=== PATIENT | male | born 1955 | race Caucasian/White ===

== ENCOUNTER → 2018-01-25 | Outpatient (CLI) | payer MEDICARE | END | disposition home or self-care (01) | LOC: CT 09:29 | DX: J98.11 Atelectasis (principal); J43.2 Centrilobular emphysema; I77.810 Thoracic aortic ectasia; I11.0 Hypertensive heart disease with heart failure; E78.00 Pure hypercholesterolemia, unspecified; K21.9 Gastro-esophageal reflux disease without esophagitis | CPT/HCPCS: 71250 ==

== ENCOUNTER 2018-03-18 10:47 | Day surgery (SDC) | payer MEDICARE ==
[~2018-03-18 10:47] MED LIST: ALLO300T PO; AMLO5TAB2 PO; ASPI325T8 PO; ATOR40TA PO; BENZOCAINE ONE 20% MUCOSAL SPRAY. MM; CARV12.52 PO; CARV40CP PO; DIGO125T PO; FURO20TA3 PO; GABA-586 PO; HYDROmorphone 2 MG/ML VIAL IV PRN; IV RINGERS,LACTATED 1000ML 1,000 ML IV SCH; LIDOCAINE 1% PF 2 ML VIAL. ID PRN; LIDOCAINE 2% TOPICAL JELLY 5GM TUBE. TP ONE; LIDOCAINE 2% VISCOUS 15 ML SOLUTION. SWSW ONE; LISI-130 PO; METO50TA6 PO; MORPHINE SULFATE 2 MG/ML VIAL. IV PRN; NITR0.4T22 SL; OMEP40CA2 PO; ONDANSETRON PF 4 MG/2 ML VIAL. IV PRN; OXYC1TAB7 PO; PROCHLORPERAZINE 10 MG/2 ML VIAL. IV PRN; TIOT18CA IH; WARF-31 PO; WARF10TA45 PO; fentaNYL PF VIAL 100 MCG/2 ML VIAL IV PRN
--- NOTE | 2018-03-18 11:06 | EKG ---
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
[2018-03-18 11:29] VITALS: BP 166/100
[2018-03-18] MEDS ORDERED: PROPOFOL 0 ML IV ONE ×2 (12:01)
[2018-03-18 13:05] LABS: PROTHROMBIN TIME PATIENT 13.8 SEC (11.7-14.0)
== END 2018-03-18 14:16 | disposition home or self-care (01) ==
LOC: SURG 10:47
PROVIDERS: ATTEND Internal Medicine Cardiovascular Disease
DX: I48.2 Chronic atrial fibrillation (principal); Z53.8 Procedure and treatment not carried out for other reasons; I10 Essential (primary) hypertension; E78.5 Hyperlipidemia, unspecified; I25.10 Atherosclerotic heart disease of native coronary artery without angina pectoris; D64.9 Anemia, unspecified; J44.9 Chronic obstructive pulmonary disease, unspecified; Z79.899 Other long term (current) drug therapy; Z79.82 Long term (current) use of aspirin; Z79.01 Long term (current) use of anticoagulants; Z87.891 Personal history of nicotine dependence; Z72.89 Other problems related to lifestyle
CPT/HCPCS: 36415; 85610; 92960; 93005; J2704

== ENCOUNTER 2018-05-03 11:23 | Inpatient (IN) | payer MEDICARE ==
[~2018-05-03] VITALS: Ht 180.3 cm; Wt 118.1 kg
[~2018-05-03 11:23] MED LIST changes: -AMLO5TAB2 PO; +AMLO5TAB7 PO; -BENZOCAINE ONE 20% MUCOSAL SPRAY. MM; -HYDROmorphone 2 MG/ML VIAL IV PRN; -IV RINGERS,LACTATED 1000ML 1,000 ML IV SCH; -LIDOCAINE 1% PF 2 ML VIAL. ID PRN; -LIDOCAINE 2% TOPICAL JELLY 5GM TUBE. TP ONE; -LIDOCAINE 2% VISCOUS 15 ML SOLUTION. SWSW ONE; -MORPHINE SULFATE 2 MG/ML VIAL. IV PRN; -ONDANSETRON PF 4 MG/2 ML VIAL. IV PRN; -PROCHLORPERAZINE 10 MG/2 ML VIAL. IV PRN; -fentaNYL PF VIAL 100 MCG/2 ML VIAL IV PRN
[2018-05-03] MEDS ORDERED: IV NORMAL SALINE 500ML BAG 500 ML IV ONE (12:30)
[2018-05-03 12:35] LABS: BASO % 1 % (0-3); EOS % 0 % (0-3); HEMATOCRIT 40.3 % (39.0-53.0); HEMOGLOBIN 13.4 g/dL (13.0-17.5); LYMPH # 0.6 x10^3/uL (1.0-4.8); LYMPH % 9 % (24-48); MEAN CORPUSCULAR HEMOGLOBIN 36 pg (25-35); MEAN CORPUSCULAR HGB CONC 33 g/dL (31-37); MEAN CORPUSCULAR VOLUME 108 fL (79-100); MONO # 0.6 x10^3/uL (0.0-1.1); MONO % 9 % (0-9); NEUT # 5.1 x10^3uL (1.8-7.7); NEUT % 81 % (31-73); PLATELET COUNT 196 x10^3/uL (140-400); RED BLOOD COUNT 3.75 x10^6/uL (4.30-5.70); RED CELL DISTRIBUTION WIDTH 16.4 % (11.5-14.5); WHITE BLOOD COUNT 6.3 x10^3/uL (4.0-11.0)
--- NOTE | 2018-05-03 12:38 | PHYS DOC ---
Past Medical History Past Medical History: A-Fib, CAD, COPD, High Cholesterol, Heart Disease, Hypertension Additional Past Medical Histor: COLON POLYPS, NEUROPATHY Past Surgical History: Appendectomy, Other Additional Past Surgical Histo: COLON RESECTION, 4 CARDIAC STENTS Alcohol Use: Occasionally Drug Use: None Adult General Chief Complaint Chief Complaint: SYNCOPE HPI HPI 62-year-old male presents to ER with complaints of multiple syncope episodes over the past week. Patient reports he has had episodes where he becomes dizzy and lightheaded and passes out. Patient reports he struck his posterior head on Sunday and is on Coumadin for history of A. fib. Patient reports he's had bilateral knee pain since his falls with abrasions. Patient also has complaints of right foot pain and swelling. Patient states he has had decreased urination over the past couple of days. He reports he had a bowel movement this morning prior to that he hadn't had one in 5 days. Patient reports since falls he has had increased left hip pain. Patient denies any chest pain, palpitations, or shortness of air. Patient is O2 dependent for diagnosed COPD. Pt denies fever/ chills or cough. Review of Systems Review of Systems Constitutional: Denies fever or chills [] Eyes: Denies change in visual acuity, redness, or eye pain [] HENT: Denies nasal congestion or sore throat [] Respiratory: Denies cough or shortness of breath [] Cardiovascular: No additional information not addressed in HPI [] GI: Denies abdominal pain, nausea, vomiting, bloody stools or diarrhea [] : Denies dysuria or hematuria [] Musculoskeletal: Denies back pain. Reports pain in sides of neck- denies midline neck pain. Reports bilat. knee and rt foot pain. Integument: Reports abrasions bilat. knees and swelling rt foot. Reports laceration posterior head from fall on Sun. Neurologic: Denies headache, focal weakness or sensory changes. Reports multiple syncope episodes Endocrine: Denies polyuria or polydipsia [] All other systems were reviewed and found to be within normal limits, except as documented in this note. Current Medications Current Medications Current Medications Medications (Trade) Dose Ordered Sig/Meredith Start Time Stop Time Status Last Admin Dose Admin Sodium Chloride 500 ml @ 500 mls/hr 1X ONCE 05/03/18 12:30 05/03/18 13:29 DC Allergies Allergies Allergies Coded Allergies Type Severity Reaction Last Updated Verified No Known Drug Allergies 03/13/16 No Physical Exam Physical Exam Constitutional: Well developed, well nourished, no acute distress, non-toxic appearance. [] HENT: Normocephalic, approx. 4cm laceration to posterior head with scab- no erythema/ecchymosis/bleeding swelling at site, bilateral ears normal, mucous membranes pink/moist, no oral exudates, nose normal. [] Eyes: 3mm PERRLA, EOMI- no pain with eye movement, no nystagmus, conjunctiva normal, no discharge. [] Neck: Normal range of motion, tender on palp. lateral sides of neck- no midline tenderness on palp. or palp. deformity, supple, no stridor. [] Cardiovascular:Heart rate irreg. rhythm, no murmur [] Lungs & Thorax: Bilateral breath sounds clear to auscultation- diminished in bases. Resp. equal/nonlabored. On o2 via NC at 3L which he is O2 dependent Abdomen: Bowel sounds normal, soft/obese, no tenderness, no masses, no pulsatile masses. [] Skin: Warm, dry, no erythema, no rash. [] Back: No tenderness- no midline spinal tenderness or visible injury- no palp. deformity, no CVA tenderness. [] Extremities: no cyanosis, no clubbing. Bilat. anterior knee abrasions- mild erythema surrounding wounds without swelling/deformity. Mild tenderness on palp. of bilat. knees- pt able to perform ROM with slight decrease in lt knee with c/o increased pain. Rt dorsal surface of foot orthopedist to palp. base of 5th metatarsal into top of foot- no ecchymosis/wounds. Rt ankle exam NL with ROM intact Neurologic: Alert and oriented X 3, normal motor function, normal sensory function, no focal deficits noted. [] Psychologic: Affect normal, judgement normal, mood normal. [] Current Patient Data Vital Signs Vital Signs Date Time Temp Pulse Resp B/P (MAP) Pulse Ox O2 Delivery O2 Flow Rate FiO2 05/03/18 13:45 100 20 135/94 (108) 99 Nasal Cannula 2.0 05/03/18 11:44 98.7 98.7 Lab Values Laboratory Tests Test 05/03/18 12:10 05/03/18 13:46 White Blood Count 6.3 x10^3/uL (4.0-11.0) Red Blood Count 3.75 x10^6/uL (4.30-5.70) L Hemoglobin 13.4 g/dL (13.0-17.5) Hematocrit 40.3 % (39.0-53.0) Mean Corpuscular Volume 108 fL (79-100) H Mean Corpuscular Hemoglobin 36 pg (25-35) H Mean Corpuscular Hemoglobin Concent 33 g/dL (31-37) Red Cell Distribution Width 16.4 % (11.5-14.5) H Platelet Count 196 x10^3/uL (140-400) Neutrophils (%) (Auto) 81 % (31-73) H Lymphocytes (%) (Auto) 9 % (24-48) L Monocytes (%) (Auto) 9 % (0-9) Eosinophils (%) (Auto) 0 % (0-3) Basophils (%) (Auto) 1 % (0-3) Neutrophils # (Auto) 5.1 x10^3uL (1.8-7.7) Lymphocytes # (Auto) 0.6 x10^3/uL (1.0-4.8) L Monocytes # (Auto) 0.6 x10^3/uL (0.0-1.1) Eosinophils # (Auto) 0.0 x10^3/uL (0.0-0.7) Basophils # (Auto) 0.0 x10^3/uL (0.0-0.2) Prothrombin Time 16.5 SEC (11.7-14.0) H Prothrombin Time INR 1.4 (0.8-1.1) H PTT 29 SEC (24-38) Sodium Level 136 mmol/L (136-145) Potassium Level 4.0 mmol/L (3.5-5.1) Chloride Level 94 mmol/L (98-107) L Carbon Dioxide Level 30 mmol/L (21-32) Anion Gap 12 (6-14) Blood Urea Nitrogen 10 mg/dL (8-26) Creatinine 1.2 mg/dL (0.7-1.3) Estimated GFR (Cockcroft-Gault) 61.6 BUN/Creatinine Ratio 8 (6-20) Glucose Level 122 mg/dL (70-99) H Calcium Level 9.1 mg/dL (8.5-10.1) Magnesium Level 1.5 mg/dL (1.8-2.4) L Total Bilirubin 0.9 mg/dL (0.2-1.0) Aspartate Amino Transferase (AST) 46 U/L (15-37) H Alanine Aminotransferase (ALT) 44 U/L (16-63) Alkaline Phosphatase 121 U/L (46-116) H Troponin I Quantitative < 0.017 ng/mL (0.000-0.055) NQ-Yay-J-Type Natriuretic Peptide 436 pg/mL (0-124) H Total Protein 6.2 g/dL (6.4-8.2) L Albumin 3.1 g/dL (3.4-5.0) L Albumin/Globulin Ratio 1.0 (1.0-1.7) Digoxin Level 0.4 ng/mL (0.9-2.0) L Digoxin Last Dose Date Unknown Digoxin Last Dose Time Unknown Urine Collection Type Unknown Urine Color Rohini Urine Clarity Clear Urine pH 5.5 Urine Specific [place] 1.020 Urine Protein Negative mg/dL (NEG-TRACE) Urine Glucose (UA) Negative mg/dL (NEG) Urine Ketones (Stick) Trace mg/dL (NEG) Urine Blood Negative (NEG) Urine Nitrite Negative (NEG) Urine Bilirubin Small (NEG) Urine Urobilinogen Dipstick 1.0 mg/dL (0.2 mg/dL) Urine Leukocyte Esterase Negative (NEG) Urine RBC 0 /HPF (0-2) Urine WBC 1-4 /HPF (0-4) Urine Transitional Epithelial Cells Few /LPF Urine Bacteria 0 /HPF (0-FEW) Urine Hyaline Casts Many /HPF Urine Mucus Marked /LPF Laboratory Tests 05/03/18 12:10 Laboratory Tests 05/03/18 12:10 EKG EKG [] Radiology/Procedures Radiology/Procedures PROCEDURE: CT HEAD AND CERVICAL SPINE WO CT HEAD AND CERVICAL SPINE WO Indication: HEAD INJURY ON SUNDAY, SYNCOPE, PRIOR SENT Exposure: One or more of the following individualized dose reduction techniques were utilized for this examination: 1. Automated exposure control 2. Adjustment of the mA and/or kV according to patient size 3. Use of iterative reconstruction technique. Comparison: Images from CT head of 06/25/2016 without report Contrast: None HEAD: Posterior fossa is unremarkable. No evidence of acute intracranial hemorrhage or abnormal extra-axial fluid collection. No evidence of mass effect or midline shift. Low-density in the white matter bilaterally, a nonspecific finding, but which is commonly due to chronic small vessel ischemic disease in a patient of this age. Prominence of ventricles and sulci, compatible with involutional change or atrophy. Intracranial arterial calcifications are identified. Visualized orbits are unremarkable. Visualized paranasal sinuses and mastoids are clear. No acute calvarial abnormality. Mild scalp density in the high right parietal region, compatible with a small hematoma. Impression: 1. Small right high parietal scalp hematoma. 2. Negative for acute intracranial hemorrhage or mass effect. 3. Chronic findings, discussed above. CERVICAL SPINE: C1 ring: Intact Cervico-occipital junction: Intact C1-C2 relationship: Within normal limits Fracture: No acute fracture identified. Spondylosis: Mild degenerative spondylosis. Bilateral multilevel neural foraminal narrowing. Alignment: Reversal of the normal cervical lordosis, can be due to muscle spasm or positioning. Facets: No evidence of perched or locked facet. Prevertebral soft tissues: No significant swelling or hematoma Thyroid: Mildly asymmetric, smaller on the left. Lung apices: Clear Impression: Mild degenerative spondylosis. No evidence of acute fracture or subluxation. Electronically signed by: Tobi Zavala MD (05/03/2018 1:36 PM) [id number] PROCEDURE: FOOT RIGHT 3V Examination: 3 views of the bilateral knees, 3 views of the right foot and frontal view of the chest HISTORY: History of multiple falls: Bilateral knee pain, foot pain, syncope COMPARISON: None available FINDINGS: Right foot: Comminuted fracture of the distal shaft head and neck of the fifth metatarsal. Moderate soft tissue swelling identified dorsal and lateral to the fifth metatarsal. The alignment of the carpal bones grossly appears unremarkable Bilateral knees: Mild joint space loss identified in the medial, lateral compartment of the knees. There is no acute fracture or dislocation of the knees. Minimally joint effusion left knee joint. CHEST: Low lung volumes and technique accentuates heart size and pulmonary vascularity. Small right-sided pleural effusion identified with the right lung base airspace opacities likely atelectasis or infiltrates. IMPRESSION: 1. Comminuted fracture the distal shaft and head and neck of the right fifth metatarsal. 2. Mild bilateral knee tricompartmental degenerative changes. 3. Small right pleural effusion with right lung base airspace opacities likely atelectasis or infiltrates. Electronically signed by: Rashel Rubin MD (05/03/2018 1:47 PM) [place] [id number] DICTATED and SIGNED BY: RASHEL RUBIN MD DATE: 05/03/18 1342 Course & Med Decision Making Course & Med Decision Making Pertinent Labs and Imaging studies reviewed. (See chart for details) Pt had no episodes of syncope or complaints of dizziness or lightheadedness while in the ER. Test results were discussed with patient along with plans for admission for further care and monitoring. Patient's head CT was negative for acute findings. Patient had fracture reported on right foot x-ray so short leg posterior splint was applied while in the ER. Patient remained neuro and vascular intact prior to and following splint application. 1452: Spoke with Dr. Hu was on-call for Dr. Duffy pt's PCP and discussed patient's case and plan of care. Will consult Dr. 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 James Disclaimer Dragon Disclaimer This electronic medical record was generated, in whole or in part, using a voice recognition dictation system. Departure Departure Impression: Primary Impression: Syncope Additional Impressions: Falls Foot fracture, right Disposition: 09 ADMITTED INPATIENT Admitting Physician: Stevie Hu Condition: STABLE Referrals: CAMDEN DUFFY MD (PCP) Problem Qualifiers JUSTIN BOO APRN May 03, 2018 12:38
[2018-05-03 12:44] LABS: PROTHROMBIN TIME PATIENT 16.5 SEC (11.7-14.0)
[2018-05-03 12:54] LABS: ANION GAP 12 (6-14); BLOOD UREA NITROGEN 10 mg/dL (8-26); BUN/CREATININE RATIO 8 (6-20); CALCIUM 9.1 mg/dL (8.5-10.1); CARBON DIOXIDE 30 mmol/L (21-32); CHLORIDE 94 mmol/L (98-107); CREATININE 1.2 mg/dL (0.7-1.3); GFR 61.6; GLUCOSE 122 mg/dL (70-99); SODIUM 136 mmol/L (136-145)
--- NOTE | 2018-05-03 12:55 | EKG ---
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
[2018-05-03 13:06] LABS: ALBUMIN 3.1 g/dL (3.4-5.0); ALK PHOS 121 U/L (46-116); ALT (SGPT) 44 U/L (16-63); AST (SGOT) 46 U/L (15-37); DIG 0.4 ng/mL (0.9-2.0); MAGNESIUM 1.5 mg/dL (1.8-2.4); TOTAL BILIRUBIN 0.9 mg/dL (0.2-1.0); TOTAL PROTEIN 6.2 g/dL (6.4-8.2)
--- NOTE | 2018-05-03 13:39 | RAD ---
CT HEAD AND CERVICAL SPINE WO Indication: HEAD INJURY ON SUNDAY, SYNCOPE, PRIOR SENT Exposure: One or more of the following individualized dose reduction techniques were utilized for this examination: 1. Automated exposure control 2. Adjustment of the mA and/or kV according to patient size 3. Use of iterative reconstruction technique. Comparison: Images from CT head of 06/25/2016 without report Contrast: None HEAD: Posterior fossa is unremarkable. No evidence of acute intracranial hemorrhage or abnormal extra-axial fluid collection. No evidence of mass effect or midline shift. Low-density in the white matter bilaterally, a nonspecific finding, but which is commonly due to chronic small vessel ischemic disease in a patient of this age. Prominence of ventricles and sulci, compatible with involutional change or atrophy. Intracranial arterial calcifications are identified. Visualized orbits are unremarkable. Visualized paranasal sinuses and mastoids are clear. No acute calvarial abnormality. Mild scalp density in the high right parietal region, compatible with a small hematoma. Impression: 1. Small right high parietal scalp hematoma. 2. Negative for acute intracranial hemorrhage or mass effect. 3. Chronic findings, discussed above. CERVICAL SPINE: C1 ring: Intact Cervico-occipital junction: Intact C1-C2 relationship: Within normal limits Fracture: No acute fracture identified. Spondylosis: Mild degenerative spondylosis. Bilateral multilevel neural foraminal narrowing. Alignment: Reversal of the normal cervical lordosis, can be due to muscle spasm or positioning. Facets: No evidence of perched or locked facet. Prevertebral soft tissues: No significant swelling or hematoma Thyroid: Mildly asymmetric, smaller on the left. Lung apices: Clear Impression: Mild degenerative spondylosis. No evidence of acute fracture or subluxation. Electronically signed by: Tobi Zavala MD (05/03/2018 1:36 PM) [id number]
--- NOTE | 2018-05-03 13:50 | RAD ---
Examination: 3 views of the bilateral knees, 3 views of the right foot and frontal view of the chest HISTORY: History of multiple falls: Bilateral knee pain, foot pain, syncope COMPARISON: None available FINDINGS: Right foot: Comminuted fracture of the distal shaft head and neck of the fifth metatarsal. Moderate soft tissue swelling identified dorsal and lateral to the fifth metatarsal. The alignment of the carpal bones grossly appears unremarkable Bilateral knees: Mild joint space loss identified in the medial, lateral compartment of the knees. There is no acute fracture or dislocation of the knees. Minimally joint effusion left knee joint. CHEST: Low lung volumes and technique accentuates heart size and pulmonary vascularity. Small right-sided pleural effusion identified with the right lung base airspace opacities likely atelectasis or infiltrates. IMPRESSION: 1. Comminuted fracture the distal shaft and head and neck of the right fifth metatarsal. 2. Mild bilateral knee tricompartmental degenerative changes. 3. Small right pleural effusion with right lung base airspace opacities likely atelectasis or infiltrates. Electronically signed by: Rashel Rubin MD (05/03/2018 1:47 PM) [place] [id number]
[2018-05-03 13:56] LABS: BILIRUBIN,URINE SMALL (NEG); CLARITY,URINE CLEAR; COLOR,URINE AMBER; NITRITE,URINE NEGATIVE (NEG); PH,URINE 5.5; PROTEIN,URINE NEGATIVE (NEG-TRACE)
[2018-05-03 14:07] LABS: BACTERIA,URINE 0 /HPF (0-FEW); HYALINE CASTS, URINE MANY /HPF; RBC,URINE 0 /HPF (0-2)
[2018-05-03 16:24] VITALS: BP 118/70
[2018-05-03] MEDS ORDERED: AMIT25TA PO (16:32)
[2018-05-03] MEDS: HYDROcodone/APAP 5/325MG 1 TAB TABLET PO PRN ×2 (17:28→20:35)
[2018-05-03] MEDS: WARFARIN 5 MG TABLET. PO SCH (18:18)
[2018-05-03 19:00] VITALS: BP 155/84
[2018-05-03] MEDS: IPRATRPIUM/ALBUTEROL 0.5/2.5MG 3 ML NEBU. NEB SCH (19:52)
[2018-05-03] MEDS: GABAPENTIN 300 MG CAPSULE. PO SCH (20:12)
[2018-05-03] MEDS: AMITRIPTYLINE HCL 25 MG TABLET. PO SCH (20:12)
[2018-05-03] MEDS: METOPROLOL TART IMMED RELEASE 50 MG TABLET. PO SCH (20:12)
[2018-05-03 23:00] VITALS: BP 115/65
[2018-05-04] VITALS (8 sets, daily range): BP systolic 92–137; BP diastolic 56–81
[2018-05-04] MEDS: HYDROcodone/APAP 5/325MG 1 TAB TABLET PO PRN ×3 (01:18→20:44)
[2018-05-04 05:23] LABS: BASO % 1 % (0-3); EOS % 1 % (0-3); HEMATOCRIT 35.8 % (39.0-53.0); LYMPH % 22 % (24-48); MEAN CORPUSCULAR HEMOGLOBIN 36 pg (25-35); MEAN CORPUSCULAR HGB CONC 34 g/dL (31-37); MEAN CORPUSCULAR VOLUME 108 fL (79-100); MONO # 0.5 x10^3/uL (0.0-1.1); MONO % 11 % (0-9); NEUT % 66 % (31-73); PLATELET COUNT 151 x10^3/uL (140-400); RED BLOOD COUNT 3.32 x10^6/uL (4.30-5.70); RED CELL DISTRIBUTION WIDTH 16.7 % (11.5-14.5); WHITE BLOOD COUNT 4.5 x10^3/uL (4.0-11.0)
[2018-05-04 05:38] LABS: CALCIUM 8.4 mg/dL (8.5-10.1); POTASSIUM 3.4 mmol/L (3.5-5.1)
[2018-05-04] MEDS: IPRATRPIUM/ALBUTEROL 0.5/2.5MG 3 ML NEBU. NEB SCH ×4 (08:29→20:18)
[2018-05-04] MEDS: ASPIRIN 325 MG TABLET PO SCH (08:42)
[2018-05-04] MEDS: METOPROLOL TART IMMED RELEASE 50 MG TABLET. PO SCH ×2 (08:43→20:45)
[2018-05-04] MEDS: GABAPENTIN 300 MG CAPSULE. PO SCH ×3 (08:44→20:45)
[2018-05-04] MEDS ORDERED: DIGOXIN 125 MCG TABLET. PO SCH (09:00)
[2018-05-04] MEDS ORDERED: NON FORMULARY ITEM (Tiotropium Bromide (Spiriva) 2 INH) IH SCH (09:00)
--- NOTE | 2018-05-04 09:22 | PDOC ---
Provider Note Provider Note [id number] MAR ANTONY MD May 04, 2018 09:22
--- NOTE | 2018-05-04 09:24 | PDOC ---
Provider Note Provider Note note high mcv without anemia, check B12 , suspect etoh , neuropathy could cause autonomic instability and syncope MAR ANTONY MD May 04, 2018 09:24
[2018-05-04] MEDS: MAGNESIUM OXIDE 400 MG TABLET PO SCH ×2 (11:22→17:47)
--- NOTE | 2018-05-04 11:43 | HP ---
ADMIT DATE: 05/04/2018 CHIEF COMPLAINT: Multiple episodes of syncope and a broken foot. HISTORY OF PRESENT ILLNESS: A 62-year-old white male, patient of Dr. Duffy, who has a history of COPD, coronary artery disease and atrial fibrillation, came in after recurrent episodes of syncope in the last 3 weeks, totaling about 6 times by his recognition. He does not recall chest pain, palpitations, diaphoresis, dizziness or any other specific symptoms when it happens and has had no ictal or postictal behavior at these episodes. When he fell yesterday, he injured his foot and has a fractured fifth metatarsal and was admitted on monitor with a splint in place for orthopedic evaluation. CT scan of the head was unremarkable. Laboratory studies unremarkable, except for mildly low magnesium. He does not take any specific medications for blood pressure and has taken all of his home meds according to him. PAST MEDICAL HISTORY: History of coronary artery disease. He has a cardiac catheterization several months ago, which revealed stents in place and bypasses and nothing unusual. ALLERGIES: No allergies are known. MEDICATIONS: No new medications. He has a history of "neuropathy" for which he takes gabapentin, but the etiology of this is unknown. He is not a diabetic and states he is not much of a drinker. FAMILY HISTORY: Unremarkable. SOCIAL HISTORY: He quit smoking 20 years ago after his first heart attack and states he does not drink much alcohol. He is . REVIEW OF SYSTEMS: No other complaints. PHYSICAL EXAMINATION: ENT: All within normal limits. NECK: No masses, nodes or bruits. LUNGS: Clear. CARDIOVASCULAR: Irregular rate, consistent with atrial fibrillation, rate is about 80-110. ABDOMEN: Obese, soft. No obvious hepatosplenomegaly, masses or ascites. EXTREMITIES: Decreased pedal pulses. SKIN: Warm. The right leg is in a soft cast. No edema. No joint or skin lesions. Nail beds are pink. NEUROLOGIC: Physiologic and nonfocal. He has good movement of all extremities. Good orientation. Cranial nerves and DTRs intact. He does have some decreased sensation in the lower feet and ankles bilaterally. ASSESSMENT: 1. Recurrent episodes of syncope with secondary injuries. Etiology of this is unclear. Certainly at risk for tachyarrhythmia or bradyarrhythmia or even syncope from hypotension. 2. History of peripheral neuropathy, suspect must be alcohol based from past history. 3. Fracture of the right fifth distal metatarsal. 4. Chronic obstructive pulmonary disease, on oxygen. 5. Hypomagnesemia. PLAN: Replace magnesium. Check TSH, cortisol and follow blood pressures and heart monitor. We will reduce metoprolol and discontinue digoxin for now, given the risk of bradyarrhythmias at this point. Warfarin is a little low, so we will increase the dose briefly and cardiac consultation has been obtained as well. MAR ANTONY MD DR: SAQIB/nts JOB#: [id number] / [id number]
--- NOTE | 2018-05-04 14:53 | PDOC2 ---
CONSULT Date of Consult Date of Consult DATE: 05/04/18 TIME: 14:44 Reason for Consult Reason for Consult: Syncope Referring Physician Referring Physician: Dr. Hu Identification/Chief Complaint Chief Complaint Syncope Source Source: Patient History of Present Illness Reason for Visit: The patient is a 62-year-old male who reports multiple episodes of syncope over the past 3-4 weeks. They have been increasing in frequency. His most recent one resulted in a fall and he has a right foot fracture which has been treated. He has a history of chronic atrial fibrillation which is treated with rate control medications and anticoagulation. He also has a history of coronary artery disease and has at least 4 stents with his last cath greater than 4 years ago. These episodes of syncope are not associated with chest pain or shortness of breath. He has little if any warning prior to them. He denies any change in medications, activities or travel prior to the initiation of these episodes. His monitor has remained in atrial fibrillation rate in the 80s overnight. Cardiac enzymes are normal. Magnesium is mildly decreased at 1.5 and is being replaced. He is comfortable in bed at this time. Past Medical History Cardiovascular: AFIB, CAD, HTN, Hyperlipidemia Pulmonary: COPD GI: GERD Heme/Onc: Anemia NOS Hepatobiliary: Hep A/B/C Psych: Depression Musculoskeletal: Osteoarthritis Infectious disease: No pertinent hx Renal/: No pertinent hx Endocrine: No pertinent hx Past Surgical History Past Surgical History: Appendectomy, Colon Resection, Other (coronary stents) Family History Family History: Coronary Artery Disease, Hypertension Social History ALCOHOL: occassional Lives: with Family Current Problem List Problem List Problems Medical Problems: (1) Falls Status: Acute (2) Foot fracture, right Status: Acute (3) Syncope Status: Acute Current Medications Current Medications Current Medications Sodium Chloride 500 ml @ 500 mls/hr 1X ONCE IV ; Start 05/03/18 at 12:30; Stop 05/03/18 at 13:29; Status DC Amitriptyline HCl (Elavil) 25 mg QHS PO Last administered on 05/03/18at 20:12; Start 05/03/18 at 21:00 Aspirin (Kelton Aspirin) 325 mg DAILY PO Last administered on 05/04/18at 08:42; Start 05/04/18 at 09:00 Digoxin (Lanoxin) 125 mcg DAILY PO Last administered on 05/04/18at 08:44; Start 05/04/18 at 09:00; Stop 05/04/18 at 09:28; Status DC Metoprolol Tartrate (Lopressor) 50 mg BID PO Last administered on 05/04/18at 08 :43; Start 05/03/18 at 21:00 Gabapentin (Neurontin) 300 mg TID PO Last administered on 05/04/18at 13:24; Start 05/03/18 at 21:00 Non-Formulary Medication (Tiotropium [place] (Spiriva)) 2 inh DAILY IH ; Start 05/04/18 at 09:00; Status UNV Warfarin Sodium (Coumadin) 5 mg DAILY16 PO Last administered on 05/03/18at 18: 18; Start 05/03/18 at 18:00 Acetaminophen/ Hydrocodone Bitart (Lortab 5/325) 1 tab PRN Q3HRS PRN PO PAIN Last administered on 05/04/18at 08:45; Start 05/03/18 at 17:15 Albuterol/ Ipratropium (Duoneb) 3 ml RTQID NEB Last administered on 05/04/18at 10:56; Start 05/03/18 at 20:00 Warfarin Sodium (Coumadin Per Physician) 1 each PRN DAILY PRN MC SEE COMMENTS; Start 05/03/18 at 17:30 Magnesium Oxide (Magnesium Oxide) 400 mg BIDAFTMEAL PO Last administered on at 11:22; Start 05/04/18 at 11:30 Active Scripts Active Reported Amitriptyline Hcl 25 Mg Tablet 1 Tab PO QHS Gabapentin 300 Mg Capsule 300 Mg PO TID Digoxin 125 Mcg Tablet 125 Mcg PO DAILY Metoprolol Tartrate 50 Mg Tablet 1 Tab PO BID Spiriva (Tiotropium [place]) 18 Mcg Cap.w.dev 2 Inh IH DAILY Warfarin Sodium 5 Mg Tablet 1 Tab PO DAILY Aspirin 325 Mg Tablet 325 Mg PO DAILY Allergies Allergies: Coded Allergies: No Known Drug Allergies (Unverified , 03/13/16) ROS Cardiovascular: yes Other (syncope) Physical Exam General: No acute distress HEENT: Atraumatic Lungs: Clear to auscultation Heart: Other (irregularly irregular) Abdomen: Normal bowel sounds Extremities: No clubbing Vitals VITALS Vital Signs Date Time Temp Pulse Resp B/P (MAP) Pulse Ox O2 Delivery O2 Flow Rate FiO2 05/04/18 13:57 71 92/62 (72) 05/04/18 10:57 Nasal Cannula 2.0 05/04/18 10:55 97.6 19 98 97.6 Labs Labs Laboratory Tests Test 05/03/18 12:10 05/03/18 13:46 05/04/18 04:00 05/04/18 04:20 White Blood Count 6.3 x10^3/uL (4.0-11.0) 4.5 x10^3/uL (4.0-11.0) Red Blood Count 3.75 x10^6/uL (4.30-5.70) 3.32 x10^6/uL (4.30-5.70) Hemoglobin 13.4 g/dL (13.0-17.5) 12.0 g/dL (13.0-17.5) Hematocrit 40.3 % (39.0-53.0) 35.8 % (39.0-53.0) Mean Corpuscular Volume 108 fL (79-100) 108 fL (79-100) Mean Corpuscular Hemoglobin 36 pg (25-35) 36 pg (25-35) Mean Corpuscular Hemoglobin Concent 33 g/dL (31-37) 34 g/dL (31-37) Red Cell Distribution Width 16.4 % (11.5-14.5) 16.7 % (11.5-14.5) Platelet Count 196 x10^3/uL (140-400) 151 x10^3/uL (140-400) Neutrophils (%) (Auto) 81 % (31-73) 66 % (31-73) Lymphocytes (%) (Auto) 9 % (24-48) 22 % (24-48) Monocytes (%) (Auto) 9 % (0-9) 11 % (0-9) Eosinophils (%) (Auto) 0 % (0-3) 1 % (0-3) Basophils (%) (Auto) 1 % (0-3) 1 % (0-3) Neutrophils # (Auto) 5.1 x10^3uL (1.8-7.7) 3.0 x10^3uL (1.8-7.7) Lymphocytes # (Auto) 0.6 x10^3/uL (1.0-4.8) 1.0 x10^3/uL (1.0-4.8) Monocytes # (Auto) 0.6 x10^3/uL (0.0-1.1) 0.5 x10^3/uL (0.0-1.1) Eosinophils # (Auto) 0.0 x10^3/uL (0.0-0.7) 0.0 x10^3/uL (0.0-0.7) Basophils # (Auto) 0.0 x10^3/uL (0.0-0.2) 0.0 x10^3/uL (0.0-0.2) Prothrombin Time 16.5 SEC (11.7-14.0) Prothromb Time International Ratio 1.4 (0.8-1.1) Activated Partial Thromboplast Time 29 SEC (24-38) Sodium Level 136 mmol/L (136-145) 140 mmol/L (136-145) Potassium Level 4.0 mmol/L (3.5-5.1) 3.4 mmol/L (3.5-5.1) Chloride Level 94 mmol/L (98-107) 99 mmol/L (98-107) Carbon Dioxide Level 30 mmol/L (21-32) 32 mmol/L (21-32) Anion Gap 12 (6-14) 9 (6-14) Blood Urea Nitrogen 10 mg/dL (8-26) 10 mg/dL (8-26) Creatinine 1.2 mg/dL (0.7-1.3) 1.0 mg/dL (0.7-1.3) Estimated GFR (Cockcroft-Gault) 61.6 76.0 BUN/Creatinine Ratio 8 (6-20) Glucose Level 122 mg/dL (70-99) 104 mg/dL (70-99) Calcium Level 9.1 mg/dL (8.5-10.1) 8.4 mg/dL (8.5-10.1) Magnesium Level 1.5 mg/dL (1.8-2.4) Total Bilirubin 0.9 mg/dL (0.2-1.0) Aspartate Amino Transf (AST/SGOT) 46 U/L (15-37) Alanine Aminotransferase (ALT/SGPT) 44 U/L (16-63) Alkaline Phosphatase 121 U/L (46-116) Troponin I Quantitative < 0.017 ng/mL (0.000-0.055) WE-Qjf-N-Type Natriuretic Peptide 436 pg/mL (0-124) Total Protein 6.2 g/dL (6.4-8.2) Albumin 3.1 g/dL (3.4-5.0) Albumin/Globulin Ratio 1.0 (1.0-1.7) Digoxin Level 0.4 ng/mL (0.9-2.0) Digoxin Last Dose Date Unknown Digoxin Last Dose Time Unknown Urine Collection Type Unknown Urine Color Rohini Urine Clarity Clear Urine pH 5.5 Urine Specific [place] 1.020 Urine Protein Negative mg/dL (NEG-TRACE) Urine Glucose (UA) Negative mg/dL (NEG) Urine Ketones (Stick) Trace mg/dL (NEG) Urine Blood Negative (NEG) Urine Nitrite Negative (NEG) Urine Bilirubin Small (NEG) Urine Urobilinogen Dipstick 1.0 mg/dL (0.2 mg/dL) Urine Leukocyte Esterase Negative (NEG) Urine RBC 0 /HPF (0-2) Urine WBC 1-4 /HPF (0-4) Urine Transitional Epithelial Cells Few /LPF Urine Bacteria 0 /HPF (0-FEW) Urine Hyaline Casts Many /HPF Urine Mucus Marked /LPF Thyroid Stimulating Hormone (TSH) 2.985 uIU/mL (0.358-3.74) Test 05/04/18 10:00 Gamma Glutamyl Transpeptidase 133 U/L (10-85) Laboratory Tests Test 05/04/18 04:00 05/04/18 04:20 05/04/18 10:00 Sodium Level 140 mmol/L (136-145) Potassium Level 3.4 mmol/L (3.5-5.1) Chloride Level 99 mmol/L (98-107) Carbon Dioxide Level 32 mmol/L (21-32) Anion Gap 9 (6-14) Blood Urea Nitrogen 10 mg/dL (8-26) Creatinine 1.0 mg/dL (0.7-1.3) Estimated GFR (Cockcroft-Gault) 76.0 Glucose Level 104 mg/dL (70-99) Calcium Level 8.4 mg/dL (8.5-10.1) Thyroid Stimulating Hormone (TSH) 2.985 uIU/mL (0.358-3.74) White Blood Count 4.5 x10^3/uL (4.0-11.0) Red Blood Count 3.32 x10^6/uL (4.30-5.70) Hemoglobin 12.0 g/dL (13.0-17.5) Hematocrit 35.8 % (39.0-53.0) Mean Corpuscular Volume 108 fL (79-100) Mean Corpuscular Hemoglobin 36 pg (25-35) Mean Corpuscular Hemoglobin Concent 34 g/dL (31-37) Red Cell Distribution Width 16.7 % (11.5-14.5) Platelet Count 151 x10^3/uL (140-400) Neutrophils (%) (Auto) 66 % (31-73) Lymphocytes (%) (Auto) 22 % (24-48) Monocytes (%) (Auto) 11 % (0-9) Eosinophils (%) (Auto) 1 % (0-3) Basophils (%) (Auto) 1 % (0-3) Neutrophils # (Auto) 3.0 x10^3uL (1.8-7.7) Lymphocytes # (Auto) 1.0 x10^3/uL (1.0-4.8) Monocytes # (Auto) 0.5 x10^3/uL (0.0-1.1) Eosinophils # (Auto) 0.0 x10^3/uL (0.0-0.7) Basophils # (Auto) 0.0 x10^3/uL (0.0-0.2) Gamma Glutamyl Transpeptidase 133 U/L (10-85) Images Images EKG is atrial fibrillation with no ischemic changes. Assessment/Plan Assessment/Plan 1. Syncope. Uncertain etiology. Patient is in chronic atrial fibrillation with reasonable rate overnight and no significant arrhythmias. He has had atrial fibrillation for an extended period of time. As noted above he denies any change in medications prior to these episodes starting approximately a month ago. At this time will continue on monitoring. We'll place an outpatient monitor when the patient is discharged. With gradually increase activities. We' ll check old records and if no recent echocardiogram we'll check an echocardiogram. Will consider possible neurology evaluation as well. 2. Coronary artery disease. History of previous stenting. No reported chest pain. No ischemic EKG changes. No elevation in troponin. We'll continue to monitor. 3. Hypertension. Reasonable control. Will continue present medications. 4. Hyperlipidemia. We'll check lab. 5. History of COPD. We'll continue present treatment. Thank you for allowing us to participate in the care of your patient. MARTÍNEZ ARDON MD May 04, 2018 14:53
--- NOTE | 2018-05-04 15:02 | PDOC2 ---
NEUROLOGY CONSULT Date of Admission Date of Admission DATE: 05/04/18 TIME: 14:54 Reason for Consult Reason for Consult: Syncope Referring Physician Referring Physician: Dr. Hobbs PCP: Dr. Hu Source Source: Caregiver (), Chart review, Patient History of Present Illness History of Present Illness The patient is a 62-year-old right-handed male admitted with one of a least 6 episodes of syncope in his life. He fell and fractured his right foot about a week ago. He has no warning, he does feel lightheaded and then goes out for a minute at most. There is no convulsive activity, tongue biting, incontinence, or prolonged postictal state. He denies diaphoresis. He does have extensive cardiac history. His measured his blood pressure during one of the spells and it was 70 systolic Past Medical History Cardiovascular: AFIB, CAD, HTN, OR Pulmonary: COPD GI: GERD, Other (colonic polyps) Hepatobiliary: Hep A/B/C (A) Psych: Anxiety, Depression Musculoskeletal: Osteoarthritis Renal/: Other (nephrolithiasis) Past Surgical History Past Surgical History: Appendectomy, Tonsillectomy (adenoidectomy), Colon Resection, Other (cardiac catheterization, coronary stents) Family History Family History: CAD, Other (Alzheimer's) Social History Social History , quit smoking 20 years ago, 3 or 4 whiskey drinks a day, quit 2 weeks ago, retired Current Medications Current Medications Current Medications Sodium Chloride 500 ml @ 500 mls/hr 1X ONCE IV ; Start 05/03/18 at 12:30; Stop 05/03/18 at 13:29; Status DC Amitriptyline HCl (Elavil) 25 mg QHS PO Last administered on 05/03/18at 20:12; Start 05/03/18 at 21:00 Aspirin (Kelton Aspirin) 325 mg DAILY PO Last administered on 05/04/18at 08:42; Start 05/04/18 at 09:00 Digoxin (Lanoxin) 125 mcg DAILY PO Last administered on 05/04/18at 08:44; Start 05/04/18 at 09:00; Stop 05/04/18 at 09:28; Status DC Metoprolol Tartrate (Lopressor) 50 mg BID PO Last administered on 05/04/18at 08 :43; Start 05/03/18 at 21:00 Gabapentin (Neurontin) 300 mg TID PO Last administered on 05/04/18at 13:24; Start 05/03/18 at 21:00 Non-Formulary Medication (Tiotropium [place] (Spiriva)) 2 inh DAILY IH ; Start 05/04/18 at 09:00; Status UNV Warfarin Sodium (Coumadin) 5 mg DAILY16 PO Last administered on 05/03/18at 18: 18; Start 05/03/18 at 18:00 Acetaminophen/ Hydrocodone Bitart (Lortab 5/325) 1 tab PRN Q3HRS PRN PO PAIN Last administered on 05/04/18at 08:45; Start 05/03/18 at 17:15 Albuterol/ Ipratropium (Duoneb) 3 ml RTQID NEB Last administered on 05/04/18at 10:56; Start 05/03/18 at 20:00 Warfarin Sodium (Coumadin Per Physician) 1 each PRN DAILY PRN MC SEE COMMENTS; Start 05/03/18 at 17:30 Magnesium Oxide (Magnesium Oxide) 400 mg BIDAFTMEAL PO Last administered on at 11:22; Start 05/04/18 at 11:30 Active Scripts Active Reported Amitriptyline Hcl 25 Mg Tablet 1 Tab PO QHS Gabapentin 300 Mg Capsule 300 Mg PO TID Digoxin 125 Mcg Tablet 125 Mcg PO DAILY Metoprolol Tartrate 50 Mg Tablet 1 Tab PO BID Spiriva (Tiotropium [place]) 18 Mcg Cap.w.dev 2 Inh IH DAILY Warfarin Sodium 5 Mg Tablet 1 Tab PO DAILY Aspirin 325 Mg Tablet 325 Mg PO DAILY Allergies Allergies: Coded Allergies: No Known Drug Allergies (Unverified , 03/13/16) ROS Review of System Patient denies fevers, chills, weight loss, abdominal pain, change in bowels, or dysuria. Positive for dyspnea and chest pain. 14-point review of systems is negative. Physical Exam Physical Examination General: Well-developed, well-nourished, white male, in no acute distress HEENT: Normocephalic andatraumatic. Temporal arteriespulsatile and nontender. Neck: Supple without bruit, no meningismus Musculoskeletal: Stability:see neurologic. Gait exam:see neurologic. Tone:see neurologic. Strength:see neurologic. Neurological: Mental Status:intact, orientation, memory, attention span/concentration, language, fund of knowledge normal. Cranial Nerves:Pupils equal and reactive to light, extraocular movements areintact, visual cevallos are full to confrontation. Facial sensation is normal. There is no facial asymmetry. Vestibulo-ocular reflex is intact. Palate elvates and tongue protrudes in midline. All other cranial related problems are negative except as mentioned before.Reflexes:0-1+ and symmetric with flexor plantar responses. Motor:5/5 strength with normal tone and bulk. Coordination:Finger-nose finger and heel-to -sin testing are normal. Rapid alternating movements and fine finger movements are intact. Gait:Normal, but poor tandem. Sensory:stocking loss Vitals VITALS Vital Signs Date Time Temp Pulse Resp B/P (MAP) Pulse Ox O2 Delivery O2 Flow Rate FiO2 05/04/18 13:57 71 92/62 (72) 05/04/18 10:57 Nasal Cannula 2.0 05/04/18 10:55 97.6 19 98 97.6 Labs Labs Laboratory Tests Test 05/03/18 12:10 05/03/18 13:46 05/04/18 04:00 05/04/18 04:20 White Blood Count 6.3 x10^3/uL (4.0-11.0) 4.5 x10^3/uL (4.0-11.0) Red Blood Count 3.75 x10^6/uL (4.30-5.70) 3.32 x10^6/uL (4.30-5.70) Hemoglobin 13.4 g/dL (13.0-17.5) 12.0 g/dL (13.0-17.5) Hematocrit 40.3 % (39.0-53.0) 35.8 % (39.0-53.0) Mean Corpuscular Volume 108 fL (79-100) 108 fL (79-100) Mean Corpuscular Hemoglobin 36 pg (25-35) 36 pg (25-35) Mean Corpuscular Hemoglobin Concent 33 g/dL (31-37) 34 g/dL (31-37) Red Cell Distribution Width 16.4 % (11.5-14.5) 16.7 % (11.5-14.5) Platelet Count 196 x10^3/uL (140-400) 151 x10^3/uL (140-400) Neutrophils (%) (Auto) 81 % (31-73) 66 % (31-73) Lymphocytes (%) (Auto) 9 % (24-48) 22 % (24-48) Monocytes (%) (Auto) 9 % (0-9) 11 % (0-9) Eosinophils (%) (Auto) 0 % (0-3) 1 % (0-3) Basophils (%) (Auto) 1 % (0-3) 1 % (0-3) Neutrophils # (Auto) 5.1 x10^3uL (1.8-7.7) 3.0 x10^3uL (1.8-7.7) Lymphocytes # (Auto) 0.6 x10^3/uL (1.0-4.8) 1.0 x10^3/uL (1.0-4.8) Monocytes # (Auto) 0.6 x10^3/uL (0.0-1.1) 0.5 x10^3/uL (0.0-1.1) Eosinophils # (Auto) 0.0 x10^3/uL (0.0-0.7) 0.0 x10^3/uL (0.0-0.7) Basophils # (Auto) 0.0 x10^3/uL (0.0-0.2) 0.0 x10^3/uL (0.0-0.2) Prothrombin Time 16.5 SEC (11.7-14.0) Prothromb Time International Ratio 1.4 (0.8-1.1) Activated Partial Thromboplast Time 29 SEC (24-38) Sodium Level 136 mmol/L (136-145) 140 mmol/L (136-145) Potassium Level 4.0 mmol/L (3.5-5.1) 3.4 mmol/L (3.5-5.1) Chloride Level 94 mmol/L (98-107) 99 mmol/L (98-107) Carbon Dioxide Level 30 mmol/L (21-32) 32 mmol/L (21-32) Anion Gap 12 (6-14) 9 (6-14) Blood Urea Nitrogen 10 mg/dL (8-26) 10 mg/dL (8-26) Creatinine 1.2 mg/dL (0.7-1.3) 1.0 mg/dL (0.7-1.3) Estimated GFR (Cockcroft-Gault) 61.6 76.0 BUN/Creatinine Ratio 8 (6-20) Glucose Level 122 mg/dL (70-99) 104 mg/dL (70-99) Calcium Level 9.1 mg/dL (8.5-10.1) 8.4 mg/dL (8.5-10.1) Magnesium Level 1.5 mg/dL (1.8-2.4) Total Bilirubin 0.9 mg/dL (0.2-1.0) Aspartate Amino Transf (AST/SGOT) 46 U/L (15-37) Alanine Aminotransferase (ALT/SGPT) 44 U/L (16-63) Alkaline Phosphatase 121 U/L (46-116) Troponin I Quantitative < 0.017 ng/mL (0.000-0.055) QR-Hlo-Z-Type Natriuretic Peptide 436 pg/mL (0-124) Total Protein 6.2 g/dL (6.4-8.2) Albumin 3.1 g/dL (3.4-5.0) Albumin/Globulin Ratio 1.0 (1.0-1.7) Digoxin Level 0.4 ng/mL (0.9-2.0) Digoxin Last Dose Date Unknown Digoxin Last Dose Time Unknown Urine Collection Type Unknown Urine Color Rohini Urine Clarity Clear Urine pH 5.5 Urine Specific [place] 1.020 Urine Protein Negative mg/dL (NEG-TRACE) Urine Glucose (UA) Negative mg/dL (NEG) Urine Ketones (Stick) Trace mg/dL (NEG) Urine Blood Negative (NEG) Urine Nitrite Negative (NEG) Urine Bilirubin Small (NEG) Urine Urobilinogen Dipstick 1.0 mg/dL (0.2 mg/dL) Urine Leukocyte Esterase Negative (NEG) Urine RBC 0 /HPF (0-2) Urine WBC 1-4 /HPF (0-4) Urine Transitional Epithelial Cells Few /LPF Urine Bacteria 0 /HPF (0-FEW) Urine Hyaline Casts Many /HPF Urine Mucus Marked /LPF Thyroid Stimulating Hormone (TSH) 2.985 uIU/mL (0.358-3.74) Test 05/04/18 10:00 Gamma Glutamyl Transpeptidase 133 U/L (10-85) Laboratory Tests Test 05/04/18 04:00 05/04/18 04:20 05/04/18 10:00 Sodium Level 140 mmol/L (136-145) Potassium Level 3.4 mmol/L (3.5-5.1) Chloride Level 99 mmol/L (98-107) Carbon Dioxide Level 32 mmol/L (21-32) Anion Gap 9 (6-14) Blood Urea Nitrogen 10 mg/dL (8-26) Creatinine 1.0 mg/dL (0.7-1.3) Estimated GFR (Cockcroft-Gault) 76.0 Glucose Level 104 mg/dL (70-99) Calcium Level 8.4 mg/dL (8.5-10.1) Thyroid Stimulating Hormone (TSH) 2.985 uIU/mL (0.358-3.74) White Blood Count 4.5 x10^3/uL (4.0-11.0) Red Blood Count 3.32 x10^6/uL (4.30-5.70) Hemoglobin 12.0 g/dL (13.0-17.5) Hematocrit 35.8 % (39.0-53.0) Mean Corpuscular Volume 108 fL (79-100) Mean Corpuscular Hemoglobin 36 pg (25-35) Mean Corpuscular Hemoglobin Concent 34 g/dL (31-37) Red Cell Distribution Width 16.7 % (11.5-14.5) Platelet Count 151 x10^3/uL (140-400) Neutrophils (%) (Auto) 66 % (31-73) Lymphocytes (%) (Auto) 22 % (24-48) Monocytes (%) (Auto) 11 % (0-9) Eosinophils (%) (Auto) 1 % (0-3) Basophils (%) (Auto) 1 % (0-3) Neutrophils # (Auto) 3.0 x10^3uL (1.8-7.7) Lymphocytes # (Auto) 1.0 x10^3/uL (1.0-4.8) Monocytes # (Auto) 0.5 x10^3/uL (0.0-1.1) Eosinophils # (Auto) 0.0 x10^3/uL (0.0-0.7) Basophils # (Auto) 0.0 x10^3/uL (0.0-0.2) Gamma Glutamyl Transpeptidase 133 U/L (10-85) Images Images HEAD: Posterior fossa is unremarkable. No evidence of acute intracranial hemorrhage or abnormal extra-axial fluid collection. No evidence of mass effect or midline shift. Low-density in the white matter bilaterally, a nonspecific finding, but which is commonly due to chronic small vessel ischemic disease in a patient of this age. Prominence of ventricles and sulci, compatible with involutional change or atrophy. Intracranial arterial calcifications are identified. Visualized orbits are unremarkable. Visualized paranasal sinuses and mastoids are clear. No acute calvarial abnormality. Mild scalp density in the high right parietal region, compatible with a small hematoma. Impression: 1. Small right high parietal scalp hematoma. 2. Negative for acute intracranial hemorrhage or mass effect. 3. Chronic findings, discussed above. CERVICAL SPINE: C1 ring: Intact Cervico-occipital junction: Intact C1-C2 relationship: Within normal limits Fracture: No acute fracture identified. Spondylosis: Mild degenerative spondylosis. Bilateral multilevel neural foraminal narrowing. Alignment: Reversal of the normal cervical lordosis, can be due to muscle spasm or positioning. Facets: No evidence of perched or locked facet. Prevertebral soft tissues: No significant swelling or hematoma Thyroid: Mildly asymmetric, smaller on the left. Lung apices: Clear Impression: Mild degenerative spondylosis. No evidence of acute fracture or subluxation. Assessment/Plan Assessment/Plan Impression: Vasovagal syncope, no evidence of seizure disorder, but still possible Peripheral neuropathy, most likely from alcoholism, rule out other causes, keep autonomic dysfunction in consideration as a cause of the syncope. Recommendations: Electroencephalogram Lab work for other causes of neuropathy Continue cardiac evaluation. Thank you for letting me help with the patient's care. JOSELYN ERIC MD May 04, 2018 15:02
[2018-05-04] MEDS: WARFARIN 5 MG TABLET. PO SCH (17:47)
[2018-05-04] MEDS: AMITRIPTYLINE HCL 25 MG TABLET. PO SCH (20:45)
--- NOTE | 2018-05-05 01:28 | CONS ---
DATE OF CONSULTATION: 05/04/2018 CHIEF COMPLAINT: Right foot fracture. HISTORY OF PRESENT ILLNESS: The patient is a 62-year-old male who was admitted with syncopal episodes, thought to be perhaps from coincident with his history of atrial fibrillation, states that when he fell due to a syncopal episode, he injured his foot and was found to have a fractured 5th metatarsal on admission. He has been asymptomatic in the hospital since a cardiac consultation was completed. PAST MEDICAL HISTORY: Significant for coronary artery disease with unremarkable recent cardiac catheterization. He also indicates that he has some neuropathy in both feet, but is not diabetic. ALLERGIES: He has no known drug allergies. MEDICATIONS: List is reviewed. FAMILY HISTORY: Unremarkable. SOCIAL HISTORY: He quit smoking 20 years ago, only occasional alcohol use, denies drug use. He is . REVIEW OF SYSTEMS: Significant basically for the neuropathy that is apparently nondiabetic in origin as well as the syncopal episodes. No history of any seizure. He does have some known coronary artery disease and COPD and atrial fibrillation. PHYSICAL EXAMINATION: EXTREMITIES: He has a small splint on the right foot. Mild tenderness on palpation over the fifth metatarsal fracture. He has no tenderness, otherwise over the foot. He does have sensation to light touch, but it is by his description decreased in both legs somewhat. He has normal examination of the contralateral foot and ankle. No bony tenderness over the ankle or tenderness or instability on drawer testing. He has normal alignment, stability of bilateral hips and knees. IMAGING: X-rays show a comminuted fracture of the fifth metatarsal distally. The joint surface remains well aligned. ASSESSMENT: 1. Fifth metatarsal comminuted fracture with minimal displacement. 2. History of peripheral neuropathy, nondiabetic in origin. 3. Recurrent syncopal episodes with a fall. 4. Chronic obstructive pulmonary disease, on oxygen and some electrolyte abnormalities being corrected. TREATMENT PLAN: I went over with him the fact that he can weightbear as symptomatically tolerated. I would suggest a hard soled shoe if he tolerates that well, if not a Cam walker boot could be given to him for additional support, although I do not think he really needs that for the ankle immobilization and he complains basically of some minimal discomfort so far. Again, I told him that I expect nonoperative treatment of this and symptomatic protection. I did probably like to see him back in about 2 weeks to recheck x-rays in terms of his alignment. AB DYE MD DR: URSZULA/guillaume JOB#: [id number] / [id number]
[2018-05-05 03:15] VITALS: BP 111/67
[2018-05-05 06:00] LABS: MAGNESIUM 1.6 mg/dL (1.8-2.4)
[2018-05-05 06:01] LABS: CHOLESTEROL/HDL RATIO 6.3
[2018-05-05] MEDS: IPRATRPIUM/ALBUTEROL 0.5/2.5MG 3 ML NEBU. NEB SCH ×4 (07:01→19:19)
[2018-05-05] MEDS: HYDROcodone/APAP 5/325MG 1 TAB TABLET PO PRN ×2 (07:05→20:09)
[2018-05-05 07:38] VITALS: BP 116/72
[2018-05-05] MEDS: ASPIRIN 325 MG TABLET PO SCH (08:45)
[2018-05-05] MEDS: MAGNESIUM OXIDE 400 MG TABLET PO SCH ×2 (08:45→18:49)
[2018-05-05] MEDS: METOPROLOL TART IMMED RELEASE 50 MG TABLET. PO SCH ×2 (08:46→20:10)
[2018-05-05] MEDS: GABAPENTIN 300 MG CAPSULE. PO SCH ×3 (08:46→20:09)
--- NOTE | 2018-05-05 10:11 | PDOC ---
Provider Note Provider Note [id number] MRA ANTONY MD May 05, 2018 10:11
[2018-05-05] MEDS: THIAMINE 100 MG TABLET. PO SCH (11:20)
[2018-05-05] MEDS: MULTIVITAMIN with MINERAL TABLET. PO SCH (11:20)
[2018-05-05 11:34] VITALS: BP 121/78
--- NOTE | 2018-05-05 13:18 | PN ---
DATE: 05/05/2018 SUBJECTIVE: The patient reports no more presyncopal episodes or anything new. He now reports that the "numbness" in both of his legs goes up to his thighs bilaterally. He states he has been on B12 shots monthly for several months, so B12 deficiency not likely, but alcohol certainly high on the list with the macrocytosis, elevated liver function tests and the same history. We will check a vitamin D level and oral vitamin D and thiamine and multivitamins daily now for any alcohol prophylaxis. Continue monitoring as the etiology of the syncope is not clear and also consider MRI of the lumbar spine given his bilaterality of his symptoms. I did not feel these are likely seizures in nature, but strongly encouraged the patient to stay in the hospital given the severity and frequency of the syncope and the risk as he is anticoagulated with warfarin. I will add an extra dose of warfarin today given his INR 1.4, but certainly a risky drug in a patient who admits that he does drink more than he should. MAR ANTONY MD DR: SAQIB/guillaume JOB#: [id number] / [id number]
--- NOTE | 2018-05-05 14:21 | PDOC ---
PROGRESS NOTES Subjective Subjective Patient seen and examined He is feeling mildly better today. Objective Objective Vital Signs Date Time Temp Pulse Resp B/P (MAP) Pulse Ox O2 Delivery O2 Flow Rate FiO2 05/05/18 11:34 97.3 95 20 121/78 (92) 99 Room Air 97.3 05/05/18 11:27 2.0 Intake and Output 05/05/18 07:00 Intake Total 1340 ml Balance 1340 ml Intake Oral 1340 ml # Voids 5 Physical Exam Abdomen: Normal bowel sounds Heart: Other (irregularly irregular) General: No acute distress HEENT: Atraumatic Lungs: Clear to auscultation Assessment Assessment Problems Medical Problems: (1) Falls Status: Acute (2) Foot fracture, right Status: Acute (3) Syncope Status: Acute 1. Syncope. Uncertain etiology. Patient is in chronic atrial fibrillation with reasonable rate and no significant arrhythmias. He has had atrial fibrillation for an extended period of time. As noted above he denies any change in medications prior to these episodes starting approximately a month ago. Monitor overnight showed no other arrhythmias. We'll gradually increase activities as tolerated. We'll place an outpatient monitor when the patient is discharged. The neurology service is working up the patient as well. 2. Coronary artery disease. History of previous stenting. No reported chest pain. No ischemic EKG changes. No elevation in troponin. We'll continue to monitor. 3. Hypertension. Reasonable control. Will continue present medications. 4. Hyperlipidemia. Continue present treatment. 5. History of COPD. We'll continue present treatment. Comment Review of Relevant I have reviewed the following items elayne (where applicable) has been applied. Labs Laboratory Tests Test 05/04/18 04:00 05/04/18 04:20 05/04/18 10:00 05/05/18 04:40 Sodium Level 140 mmol/L (136-145) Potassium Level 3.4 mmol/L (3.5-5.1) Chloride Level 99 mmol/L (98-107) Carbon Dioxide Level 32 mmol/L (21-32) Anion Gap 9 (6-14) Blood Urea Nitrogen 10 mg/dL (8-26) Creatinine 1.0 mg/dL (0.7-1.3) Estimated GFR (Cockcroft-Gault) 76.0 Glucose Level 104 mg/dL (70-99) Calcium Level 8.4 mg/dL (8.5-10.1) Thyroid Stimulating Hormone (TSH) 2.985 uIU/mL (0.358-3.74) White Blood Count 4.5 x10^3/uL (4.0-11.0) Red Blood Count 3.32 x10^6/uL (4.30-5.70) Hemoglobin 12.0 g/dL (13.0-17.5) Hematocrit 35.8 % (39.0-53.0) Mean Corpuscular Volume 108 fL (79-100) Mean Corpuscular Hemoglobin 36 pg (25-35) Mean Corpuscular Hemoglobin Concent 34 g/dL (31-37) Red Cell Distribution Width 16.7 % (11.5-14.5) Platelet Count 151 x10^3/uL (140-400) Neutrophils (%) (Auto) 66 % (31-73) Lymphocytes (%) (Auto) 22 % (24-48) Monocytes (%) (Auto) 11 % (0-9) Eosinophils (%) (Auto) 1 % (0-3) Basophils (%) (Auto) 1 % (0-3) Neutrophils # (Auto) 3.0 x10^3uL (1.8-7.7) Lymphocytes # (Auto) 1.0 x10^3/uL (1.0-4.8) Monocytes # (Auto) 0.5 x10^3/uL (0.0-1.1) Eosinophils # (Auto) 0.0 x10^3/uL (0.0-0.7) Basophils # (Auto) 0.0 x10^3/uL (0.0-0.2) Gamma Glutamyl Transpeptidase 133 U/L (10-85) Erythrocyte Sedimentation Rate 30 (0-15) Magnesium Level 1.6 mg/dL (1.8-2.4) Triglycerides Level 187 mg/dL (0-150) Cholesterol Level 146 mg/dL (0-200) LDL Cholesterol, Calculated 86 mg/dL (0-100) VLDL Cholesterol, Calculated 37 mg/dL (0-40) Non-HDL Cholesterol Calculated 123 mg/dL (0-129) HDL Cholesterol 23 mg/dL (40-60) Cholesterol/HDL Ratio 6.3 Laboratory Tests Test 05/05/18 04:40 Erythrocyte Sedimentation Rate 30 (0-15) Magnesium Level 1.6 mg/dL (1.8-2.4) Triglycerides Level 187 mg/dL (0-150) Cholesterol Level 146 mg/dL (0-200) LDL Cholesterol, Calculated 86 mg/dL (0-100) VLDL Cholesterol, Calculated 37 mg/dL (0-40) Non-HDL Cholesterol Calculated 123 mg/dL (0-129) HDL Cholesterol 23 mg/dL (40-60) Cholesterol/HDL Ratio 6.3 Medications Current Medications Sodium Chloride 500 ml @ 500 mls/hr 1X ONCE IV ; Start 05/03/18 at 12:30; Stop 05/03/18 at 13:29; Status DC Amitriptyline HCl (Elavil) 25 mg QHS PO Last administered on 05/04/18at 20:45; Start 05/03/18 at 21:00 Aspirin ([place] Aspirin) 325 mg DAILY PO Last administered on 05/05/18at 08:45; Start 05/04/18 at 09:00 Digoxin (Lanoxin) 125 mcg DAILY PO Last administered on 05/04/18at 08:44; Start 05/04/18 at 09:00; Stop 05/04/18 at 09:28; Status DC Metoprolol Tartrate (Lopressor) 50 mg BID PO Last administered on 05/05/18at 08 :46; Start 05/03/18 at 21:00 Gabapentin (Neurontin) 300 mg TID PO Last administered on 05/05/18at 08:46; Start 05/03/18 at 21:00 Non-Formulary Medication (Tiotropium [place] (Spiriva)) 2 inh DAILY IH ; Start 05/04/18 at 09:00; Status UNV Warfarin Sodium (Coumadin) 5 mg DAILY16 PO Last administered on 05/04/18at 17: 47; Start 05/03/18 at 18:00 Acetaminophen/ Hydrocodone Bitart (Lortab 5/325) 1 tab PRN Q3HRS PRN PO PAIN Last administered on 05/05/18at 07:05; Start 05/03/18 at 17:15 Albuterol/ Ipratropium (Duoneb) 3 ml RTQID NEB Last administered on 05/05/18at 11:27; Start 05/03/18 at 20:00 Warfarin Sodium (Coumadin Per Physician) 1 each PRN DAILY PRN MC SEE COMMENTS; Start 05/03/18 at 17:30 Magnesium Oxide (Magnesium Oxide) 400 mg BIDAFTMEAL PO Last administered on at 08:45; Start 05/04/18 at 11:30 Thiamine Mononitrate (Vitamin B-1) 100 mg DAILY PO Last administered on at 11:20; Start 05/05/18 at 11:00 Multivitamins (Thera M Plus) 1 tab DAILY PO Last administered on 05/05/18at 11: 20; Start 05/05/18 at 12:00 Active Scripts Active Reported Amitriptyline Hcl 25 Mg Tablet 1 Tab PO QHS Gabapentin 300 Mg Capsule 300 Mg PO TID Digoxin 125 Mcg Tablet 125 Mcg PO DAILY Metoprolol Tartrate 50 Mg Tablet 1 Tab PO BID Spiriva (Tiotropium [place]) 18 Mcg Cap.w.dev 2 Inh IH DAILY Warfarin Sodium 5 Mg Tablet 1 Tab PO DAILY Aspirin 325 Mg Tablet 325 Mg PO DAILY Vitals/I & O Vital Sign - Last 24 Hours 05/04/18 05/04/18 05/04/18 05/04/18 15:02 15:11 19:30 20:00 Temp 97.5 97.6 97.5 97.6 Pulse 68 97 Resp 18 18 B/P (MAP) 92/57 (69) 137/81 (99) Pulse Ox 95 98 O2 Delivery Nasal Cannula Room Air Nasal Cannula Nasal Cannula O2 Flow Rate 2.0 2.0 2.0 05/04/18 05/04/18 05/04/18 05/04/18 20:19 20:44 20:45 23:34 Temp 97.6 97.6 Pulse 97 89 Resp 18 B/P (MAP) 137/81 100/56 (71) Pulse Ox 96 O2 Delivery Room Air Nasal Cannula Nasal Cannula O2 Flow Rate 2.0 05/05/18 05/05/18 05/05/18 05/05/18 03:15 07:01 07:05 07:38 Temp 97.5 97.8 97.5 97.8 Pulse 89 80 Resp 20 20 B/P (MAP) 111/67 (82) 116/72 (87) Pulse Ox 93 94 95 O2 Delivery Room Air Nasal Cannula Room Air Room Air O2 Flow Rate 2.0 05/05/18 05/05/18 05/05/18 05/05/18 08:00 08:05 08:46 11:27 Pulse 80 B/P (MAP) 116/72 O2 Delivery Nasal Cannula Nasal Cannula Nasal Cannula O2 Flow Rate 2.0 2.0 2.0 05/05/18 11:34 Temp 97.3 97.3 Pulse 95 Resp 20 B/P (MAP) 121/78 (92) Pulse Ox 99 O2 Delivery Room Air Intake and Output 05/04/18 05/04/18 05/05/18 15:00 23:00 07:00 Intake Total 800 ml 540 ml Balance 800 ml 540 ml MARTÍNEZ ARDON MD May 05, 2018 14:21
--- NOTE | 2018-05-05 14:29 | CARD ---
MR#: [id number] Date of Study: 05/05/2018 Ordering Physician: MARTÍNEZ HOBBS, Referring Physician: MAR ANTONY Tech: Kerry Jaimes RDCS APPROVED REPORT EXAM: Two-dimensional and M-mode echocardiogram with Doppler and color Doppler. Other Information Quality : Good Rhythm : Atrial Fibrillation INDICATION Syncope 2D DIMENSIONS RVDd3.1 (2.9-3.5cm)Left Atrium(2D)4.7 (1.6-4.0cm) IVSd1.5 (0.7-1.1cm)Aortic Root(2D)3.7 (2.0-3.7cm) LVDd4.1 (3.9-5.9cm)LVOT Diameter2.2 (1.8-2.4cm) PWd1.7 (0.7-1.1cm)LVDs3.7 (2.5-4.0cm) LVEF(%)60.0 (>50%) Aortic Valve AoV Peak Carlos.121.9cm/sAoV VTI17.1cm AO Peak GR.5.9mmHgLVOT VTI 14.07cm AO Mean GR.4mmHgAVA (VTI)3.08cm2 Tricuspid Valve TR P. [id number]/sRAP [id number] TR Peak Gr.[id number] LEFT VENTRICLE The left ventricle is normal size. There is mild concentric left ventricular hypertrophy. The left ve ntricular systolic function is normal and the ejection fraction is within normal range. The Ejection Fraction is 55-60%. There is normal LV segmental wall motion. RIGHT VENTRICLE The right ventricle is normal size. The right ventricular systolic function is normal. ATRIA The left atrium is mildly dilated. The right atrium is mildly dilated. The interatrial septum is inta ct with no evidence for an atrial septal defect or patent foramen ovale as noted on 2-D or Doppler im aging. AORTIC VALVE The aortic valve is calcified but opens well. Doppler and Color Flow revealed no significant aortic r egurgitation. There is no significant aortic valvular stenosis. MITRAL VALVE The mitral valve is calcified but opens well. Posterior mitral annular calcification is moderate. The re is no evidence of mitral valve prolapse. There is no mitral valve stenosis. Doppler and Color-flow revealed trace mitral regurgitation. TRICUSPID VALVE The tricuspid valve is normal in structure and function. Doppler and Color Flow revealed trace tricus pid regurgitation. The PA pressure was estimated at 36 mmHg. There is no tricuspid valve stenosis. PULMONIC VALVE The pulmonic valve is not well visualized. Doppler and Color Flow revealed no pulmonic valvular regur gitation. There is no pulmonic valvular stenosis. GREAT VESSELS The aortic root is normal in size. The ascending aorta is not well seen. The IVC was not visualized. PERICARDIAL EFFUSION Slight pericardial effusion with no hemodynamic significance. Critical Notification Critical Value: No <Conclusion> The left ventricle is normal size. The left ventricular systolic function is normal and the ejection fraction is within normal range. The Ejection Fraction is 55-60%. There is mild concentric left ventricular hypertrophy. There is no significant aortic valvular stenosis. Doppler and Color-flow revealed trace mitral regurgitation. Doppler and Color Flow revealed trace tricuspid regurgitation. The PA pressure was estimated at 36 mmHg. Signed by : Martínez Hobbs MD Electronically Approved : 05/05/2018 14:28:22
--- NOTE | 2018-05-05 14:52 | PDOC ---
PROGRESS NOTES Assessment Problems Medical Problems: (1) Falls Status: Acute (2) Foot fracture, right Status: Acute (3) Syncope Status: Acute Vasovagal syncope, no evidence of seizure disorder, but still possible Peripheral neuropathy, most likely from alcoholism, rule out other causes, keep autonomic dysfunction in consideration as a cause of the syncope. Plan Electroencephalogram Await lab work for other causes of neuropathy Continue cardiac evaluation. Patient originally scheduled to see me next week, he will delay the appointment until 6 weeks from now. I told him to abstain from alcohol Subjective He wants to revise downward his alcohol intake to one or 2 whiskeys a day, and not every day Objective Vital Signs Date Time Temp Pulse Resp B/P (MAP) Pulse Ox O2 Delivery O2 Flow Rate FiO2 05/05/18 11:34 97.3 95 20 121/78 (92) 99 Room Air 97.3 05/05/18 11:27 2.0 Intake and Output 05/05/18 07:00 Intake Total 1340 ml Balance 1340 ml Intake Oral 1340 ml # Voids 5 PHYSICAL EXAM Alert. Oriented to time, place and person. PERRL. EOMI. CN: no focal findings. Muscle tone: normal. Muscle strength: 5/5 DTR: 0-1+ Plantar reflex: flexor Gait: not examined in bed. Sensory exam: stocking loss. No cerebellar signs elicited. Review of Relevant I have reviewed the following items elayne (where applicable) has been applied. Labs Laboratory Tests Test 05/04/18 04:00 05/04/18 04:20 05/04/18 10:00 05/05/18 04:40 Sodium Level 140 mmol/L (136-145) Potassium Level 3.4 mmol/L (3.5-5.1) Chloride Level 99 mmol/L (98-107) Carbon Dioxide Level 32 mmol/L (21-32) Anion Gap 9 (6-14) Blood Urea Nitrogen 10 mg/dL (8-26) Creatinine 1.0 mg/dL (0.7-1.3) Estimated GFR (Cockcroft-Gault) 76.0 Glucose Level 104 mg/dL (70-99) Calcium Level 8.4 mg/dL (8.5-10.1) Thyroid Stimulating Hormone (TSH) 2.985 uIU/mL (0.358-3.74) White Blood Count 4.5 x10^3/uL (4.0-11.0) Red Blood Count 3.32 x10^6/uL (4.30-5.70) Hemoglobin 12.0 g/dL (13.0-17.5) Hematocrit 35.8 % (39.0-53.0) Mean Corpuscular Volume 108 fL (79-100) Mean Corpuscular Hemoglobin 36 pg (25-35) Mean Corpuscular Hemoglobin Concent 34 g/dL (31-37) Red Cell Distribution Width 16.7 % (11.5-14.5) Platelet Count 151 x10^3/uL (140-400) Neutrophils (%) (Auto) 66 % (31-73) Lymphocytes (%) (Auto) 22 % (24-48) Monocytes (%) (Auto) 11 % (0-9) Eosinophils (%) (Auto) 1 % (0-3) Basophils (%) (Auto) 1 % (0-3) Neutrophils # (Auto) 3.0 x10^3uL (1.8-7.7) Lymphocytes # (Auto) 1.0 x10^3/uL (1.0-4.8) Monocytes # (Auto) 0.5 x10^3/uL (0.0-1.1) Eosinophils # (Auto) 0.0 x10^3/uL (0.0-0.7) Basophils # (Auto) 0.0 x10^3/uL (0.0-0.2) Gamma Glutamyl Transpeptidase 133 U/L (10-85) Erythrocyte Sedimentation Rate 30 (0-15) Magnesium Level 1.6 mg/dL (1.8-2.4) Triglycerides Level 187 mg/dL (0-150) Cholesterol Level 146 mg/dL (0-200) LDL Cholesterol, Calculated 86 mg/dL (0-100) VLDL Cholesterol, Calculated 37 mg/dL (0-40) Non-HDL Cholesterol Calculated 123 mg/dL (0-129) HDL Cholesterol 23 mg/dL (40-60) Cholesterol/HDL Ratio 6.3 Laboratory Tests Test 05/05/18 04:40 Erythrocyte Sedimentation Rate 30 (0-15) Magnesium Level 1.6 mg/dL (1.8-2.4) Triglycerides Level 187 mg/dL (0-150) Cholesterol Level 146 mg/dL (0-200) LDL Cholesterol, Calculated 86 mg/dL (0-100) VLDL Cholesterol, Calculated 37 mg/dL (0-40) Non-HDL Cholesterol Calculated 123 mg/dL (0-129) HDL Cholesterol 23 mg/dL (40-60) Cholesterol/HDL Ratio 6.3 Medications Current Medications Sodium Chloride 500 ml @ 500 mls/hr 1X ONCE IV ; Start 05/03/18 at 12:30; Stop 05/03/18 at 13:29; Status DC Amitriptyline HCl (Elavil) 25 mg QHS PO Last administered on 05/04/18at 20:45; Start 05/03/18 at 21:00 Aspirin (Kelton Aspirin) 325 mg DAILY PO Last administered on 05/05/18at 08:45; Start 05/04/18 at 09:00 Digoxin (Lanoxin) 125 mcg DAILY PO Last administered on 05/04/18at 08:44; Start 05/04/18 at 09:00; Stop 05/04/18 at 09:28; Status DC Metoprolol Tartrate (Lopressor) 50 mg BID PO Last administered on 05/05/18at 08 :46; Start 05/03/18 at 21:00 Gabapentin (Neurontin) 300 mg TID PO Last administered on 05/05/18at 08:46; Start 05/03/18 at 21:00 Non-Formulary Medication (Tiotropium [place] (Spiriva)) 2 inh DAILY IH ; Start 05/04/18 at 09:00; Status UNV Warfarin Sodium (Coumadin) 5 mg DAILY16 PO Last administered on 05/04/18at 17: 47; Start 05/03/18 at 18:00 Acetaminophen/ Hydrocodone Bitart (Lortab 5/325) 1 tab PRN Q3HRS PRN PO PAIN Last administered on 05/05/18at 07:05; Start 05/03/18 at 17:15 Albuterol/ Ipratropium (Duoneb) 3 ml RTQID NEB Last administered on 05/05/18at 11:27; Start 05/03/18 at 20:00 Warfarin Sodium (Coumadin Per Physician) 1 each PRN DAILY PRN MC SEE COMMENTS; Start 05/03/18 at 17:30 Magnesium Oxide (Magnesium Oxide) 400 mg BIDAFTMEAL PO Last administered on at 08:45; Start 05/04/18 at 11:30 Thiamine Mononitrate (Vitamin B-1) 100 mg DAILY PO Last administered on at 11:20; Start 05/05/18 at 11:00 Multivitamins (Thera M Plus) 1 tab DAILY PO Last administered on 05/05/18at 11: 20; Start 05/05/18 at 12:00 Active Scripts Active Reported Amitriptyline Hcl 25 Mg Tablet 1 Tab PO QHS Gabapentin 300 Mg Capsule 300 Mg PO TID Digoxin 125 Mcg Tablet 125 Mcg PO DAILY Metoprolol Tartrate 50 Mg Tablet 1 Tab PO BID Spiriva (Tiotropium [place]) 18 Mcg Cap.w.dev 2 Inh IH DAILY Warfarin Sodium 5 Mg Tablet 1 Tab PO DAILY Aspirin 325 Mg Tablet 325 Mg PO DAILY Vitals/I & O Vital Sign - Last 24 Hours 05/04/18 05/04/18 05/04/18 05/04/18 15:02 15:11 19:30 20:00 Temp 97.5 97.6 97.5 97.6 Pulse 68 97 Resp 18 18 B/P (MAP) 92/57 (69) 137/81 (99) Pulse Ox 95 98 O2 Delivery Nasal Cannula Room Air Nasal Cannula Nasal Cannula O2 Flow Rate 2.0 2.0 2.0 05/04/18 05/04/18 05/04/18 05/04/18 20:19 20:44 20:45 23:34 Temp 97.6 97.6 Pulse 97 89 Resp 18 B/P (MAP) 137/81 100/56 (71) Pulse Ox 96 O2 Delivery Room Air Nasal Cannula Nasal Cannula O2 Flow Rate 2.0 05/05/18 05/05/18 05/05/18 05/05/18 03:15 07:01 07:05 07:38 Temp 97.5 97.8 97.5 97.8 Pulse 89 80 Resp 20 20 B/P (MAP) 111/67 (82) 116/72 (87) Pulse Ox 93 94 95 O2 Delivery Room Air Nasal Cannula Room Air Room Air O2 Flow Rate 2.0 05/05/18 05/05/18 05/05/18 05/05/18 08:00 08:05 08:46 11:27 Pulse 80 B/P (MAP) 116/72 O2 Delivery Nasal Cannula Nasal Cannula Nasal Cannula O2 Flow Rate 2.0 2.0 2.0 05/05/18 11:34 Temp 97.3 97.3 Pulse 95 Resp 20 B/P (MAP) 121/78 (92) Pulse Ox 99 O2 Delivery Room Air Intake and Output 05/04/18 05/04/18 05/05/18 15:00 23:00 07:00 Intake Total 800 ml 540 ml Balance 800 ml 540 ml JOSELYN ERIC MD May 05, 2018 14:52
[2018-05-05] MEDS: WARFARIN 5 MG TABLET. PO SCH (15:08)
[2018-05-05 15:10] VITALS: BP 103/70
[2018-05-05 19:00] VITALS: BP 117/75
[2018-05-05] MEDS: AMITRIPTYLINE HCL 25 MG TABLET. PO SCH (20:10)
[2018-05-05 22:07] LABS: HEMOGLOBIN A1C 5.5 % (4.8-5.6)
[2018-05-05 22:39] VITALS: BP 118/78
[2018-05-06 03:00] VITALS: BP 124/86
[2018-05-06 07:00] VITALS: BP 122/86
[2018-05-06] MEDS: IPRATRPIUM/ALBUTEROL 0.5/2.5MG 3 ML NEBU. NEB SCH ×4 (07:36→19:44)
[2018-05-06 07:50] VITALS: BP 124/86
[2018-05-06] MEDS: HYDROcodone/APAP 5/325MG 1 TAB TABLET PO PRN ×3 (09:15→19:00)
[2018-05-06] MEDS: ASPIRIN 325 MG TABLET PO SCH (09:15)
[2018-05-06] MEDS: THIAMINE 100 MG TABLET. PO SCH (09:15)
[2018-05-06] MEDS: MAGNESIUM OXIDE 400 MG TABLET PO SCH ×2 (09:16→17:28)
[2018-05-06] MEDS: GABAPENTIN 300 MG CAPSULE. PO SCH ×3 (09:16→20:55)
[2018-05-06] MEDS: MULTIVITAMIN with MINERAL TABLET. PO SCH (09:16)
[2018-05-06] MEDS: METOPROLOL TART IMMED RELEASE 50 MG TABLET. PO SCH ×2 (09:17→20:59)
--- NOTE | 2018-05-06 11:20 | PDOC ---
REY HUYNH APRN 05/06/18 1120: CARDIO Progress Notes Date and Time Date of Service 05/06/2018 Time of Evaluation 1135 Subjective Subjective: No Chest Pain, No shortness of breath, No Palpitations Comments: Tele with multiple events of AFIB with RVR with rates 130-150 range. Vitals Vitals Vital Signs Date Time Temp Pulse Resp B/P (MAP) Pulse Ox O2 Delivery O2 Flow Rate FiO2 05/06/18 09:17 81 124/86 05/06/18 09:15 98 Nasal Cannula 2.0 05/06/18 07:50 97.4 97.4 05/06/18 07:00 18 Weight Weight [ ] Input and Output Intake and Output Intake and Output 05/06/18 07:00 Intake Total 400 ml Balance 400 ml Intake Oral 400 ml # Voids 3 Physical Exam HEENT: Neck Supple W Full Motion Chest: Symmetric LUNGS: Clear to Auscultation, Other (diminished bases) Heart: S1S2, no murmurs, irregularly irregular (tele AFIB. ) Abdomen: Soft N/T Extremities: Other (trace bilateral LE edeam ) Neurology: alert, oriented, follow commands Assessment Assessment 1. Recurrent syncope; secondary to hypotension? No significant valvular abnormalities noted on TTE 2. CAD s/p previous PCI/stent placement. LVEF 55-60% 3. AFIB with intermittent RVR noted on tele 4. Hypertension; BP marginal 5. Hyperlipidemia; LDL 86 6. Right fifth metatarsal fracture Recommendations Add dig for rate control Coumadin for stroke prevention Continue secondary prevention measures Given recurrent syncopal episodes, will plan for outpatient loop recorder to r/ o contributing arrhythmias. TANIKA SUMNER MD 05/06/18 8294: CARDIO Progress Notes Plan Plan Patient seen and examined. Agree with above nurse practitioner note. No acute events overnight. No obvious pathology toward a pacemaker on his overnight telemetry strips On examination he has mild pedal edema. Orthostatics were not significantly abnormal. No clear cardiac source except for his tachyarrhythmia. We will add digoxin. Plan for outpatient loop recorder. Discussed with the patient and is agreeable to proceed. We will have him set up to the office for outpatient implant loop recorder. REY HUYNH APRN May 06, 2018 11:20 TANIKA SUMNER MD May 06, 2018 16:59
[2018-05-06 12:35] LABS: PROTHROMBIN TIME PATIENT 21.4 SEC (11.7-14.0)
[2018-05-06] MEDS: DIGOXIN 125 MCG TABLET. PO SCH (14:43)
[2018-05-06 15:00] VITALS: BP 105/77
--- NOTE | 2018-05-06 17:05 | PDOC ---
PROGRESS NOTES Assessment Assessment IMPRESSION: Syncope. Persistent dizziness. Metabolic encephalopathy. Falls. Right 5th metatarsal fracture. Pulmonary infiltrate. Pulmonary effusion. AFib. CAD. HTN. HLD. Peripheral neuropathy. Alcohol use/abuse. Obesity. RECOMMENDATIONS/PLAN: Brain MRI/MRA w/o contrast. Lab; see orders. Continue Coumadin. Add Statin. Meclizine 12.5 mg to 25 mg tid. Treat medical and cardiac diseases. OT/PT. Past Medical History Cardiovascular: AFIB, CAD, HTN, [place] Pulmonary: COPD GI: GERD, Other (colonic polyps) Hepatobiliary: Hep A/B/C (A) Psych: Anxiety, Depression Musculoskeletal: Osteoarthritis Renal/: Other (nephrolithiasis) Past Surgical History Appendectomy, Tonsillectomy (adenoidectomy), Colon Resection, Other (cardiac catheterization, coronary stents) Family History CAD, Other (Alzheimer's) Social History , quit smoking 20 years ago, 3 or 4 whiskey drinks a day, quit 2 weeks ago, retired ALLERGY: Reviewed. MEDICATIONS: Refer to [facility] REVIEW OF SYSTEMS: Constitutional: Obese. Head: No traumatic brain or head injury. Skin: No edema, or rash. Ear: No infection. Eyes: No vision loss, or diplopia. Nose: No bleeding or purulent discharges. Hearing: No hearing decrease. Neck: No injury. Cardiac: CAD, HTN, HLD Pulmonary: Pneumonia? GI: No GI Ulcer, GI bleeding. Urinary/genital: UTI. Endocrine: obesity. Skeletomuscular: falls, fracture. Neurological: see HP. Psychiatric: Denies drug use/abuse. Otherwise, not [id number] review of systems. PHYSICAL EXAMINATION: General appearance in subacute distress. HEENT: Normocephalic and nontraumatic. Eyes, nose, ears, and throat are unremarkable. Neck is supple. No lymphadenopathy. No Crepitus. Cardiovascular: S1, S2, regular rate and rhythm. Pulmonary: Mildly decreased.to auscultation bilaterally. Abdomen: Bowel sounds are positive. Extremities: Right foot 5th metatarsal fracture. Restriction of range of motion in right foot. NEUROLOGICAL EXAMINATION: Alert. Oriented to time, place and person. PERRL. EOMI. CN: no focal findings. Muscle tone: within normal. Muscle strength: 4 DTR: 1+ Plantar reflex: Flexo response left side. Gait: not examined in bed. Sensory exam: no abnormal findings. No cerebellar signs elicited. F-T-N test fine. Objective Objective Vital Signs Date Time Temp Pulse Resp B/P (MAP) Pulse Ox O2 Delivery O2 Flow Rate FiO2 05/06/18 15:12 Nasal Cannula 2.0 05/06/18 15:00 97.6 94 18 105/77 (86) 94 97.6 Intake and Output 05/06/18 07:00 Intake Total 400 ml Balance 400 ml Intake Oral 400 ml # Voids 3 Vitals Signs Vitals VS - Last 72 Hours, by Label Date Time Temp Pulse Resp B/P (MAP) Pulse Ox O2 Delivery O2 Flow Rate FiO2 05/06/18 15:12 Nasal Cannula 2.0 05/06/18 15:00 97.6 94 18 105/77 (86) 94 Nasal Cannula 2.0 97.6 05/06/18 14:46 98 Nasal Cannula 2.0 05/06/18 14:43 81 124/86 05/06/18 11:26 98 Nasal Cannula 2.0 05/06/18 10:30 98 Nasal Cannula 2.0 05/06/18 09:17 81 124/86 05/06/18 09:15 98 Nasal Cannula 2.0 05/06/18 07:50 97.4 81 124/86 (99) 98 Nasal Cannula 2.0 97.4 05/06/18 07:40 Nasal Cannula 2.0 05/06/18 07:39 98 Nasal Cannula 2.0 05/06/18 07:00 97.9 85 18 122/86 (98) 96 Room Air 97.9 05/06/18 03:00 97.4 81 18 124/86 (99) 96 Room Air 97.4 05/05/18 22:39 97.0 97 19 118/78 (91) 98 Room Air 97.0 05/05/18 21:09 18 05/05/18 20:10 85 103/70 05/05/18 20:09 18 94 Nasal Cannula 2.0 05/05/18 20:00 Nasal Cannula 2.0 05/05/18 19:19 94 Nasal Cannula 2.0 05/05/18 19:00 97.2 89 19 117/75 (89) 92 Room Air 97.2 05/05/18 16:26 Nasal Cannula 2.0 05/05/18 15:10 97.3 85 20 103/70 (81) 94 Room Air 97.3 05/05/18 11:34 97.3 95 20 121/78 (92) 99 Room Air 97.3 05/05/18 11:27 Nasal Cannula 2.0 05/05/18 08:46 80 116/72 05/05/18 08:00 Nasal Cannula 2.0 05/05/18 07:38 97.8 80 20 116/72 (87) 95 Room Air 97.8 05/05/18 07:05 Room Air 05/05/18 07:01 94 Nasal Cannula 2.0 Laboratory Laboratory Laboratory Tests Test 05/06/18 11:50 Prothrombin Time 21.4 SEC (11.7-14.0) Prothromb Time International Ratio 1.9 (0.8-1.1) Medication Medications Current Medications Digoxin (Lanoxin) 125 mcg DAILY PO Last administered on 05/06/18at 14:43; Start 05/06/18 at 14:30 Simvastatin (Zocor) 10 mg QHS PO ; Start 05/06/18 at 21:00 Comment Review of Relevant I have reviewed the following items elayne (where applicable) has been applied. ROSE HERNANDEZ MD May 06, 2018 17:04
[2018-05-06] MEDS: MECLIZINE HCL 12.5 MG TABLET. PO SCH ×2 (17:28→20:59)
[2018-05-06] MEDS: WARFARIN 5 MG TABLET. PO SCH (17:29)
[2018-05-06 18:14] LABS: ANA INTERP Negative (.)
[2018-05-06 19:00] VITALS: BP 146/89
[2018-05-06] MEDS: AMITRIPTYLINE HCL 25 MG TABLET. PO SCH (20:55)
[2018-05-06] MEDS: SIMVASTATIN 10 MG TABLET PO SCH (20:59)
[2018-05-06 23:00] VITALS: BP 113/47
--- NOTE | 2018-05-07 02:53 | PN ---
DATE: LOCATION: He is in room 422. SUBJECTIVE: The patient is awake and alert, has had no further syncope or presyncope. OBJECTIVE: VITAL SIGNS: Stable. He is afebrile. Did have decreased a.m. cortisol level at 1.7 couple of days ago. His INR is 1.9 today. He did have right 5th metatarsal fracture on admission. He remains in a-fib, but has had some episodes with RVR per cardiology and dig was added to his regimen. A loop recorder is planned at discharge to see if these may be arrhythmia based. CHEST: Clear. HEART: Irregular. ABDOMEN: Benign. EXTREMITIES: Without cyanosis, clubbing or significant edema. ASSESSMENT: 1. Syncope of uncertain etiology, felt by neurology to be probable vasovagal, but could be relating to atrial fibrillation with rapid ventricular response. 2. Coronary artery disease, history of stents. 3. Hypertension. 4. Hyperlipidemia. 5. Chronic obstructive pulmonary disease. 6. Neuropathy. PLAN: We will continue to monitor at this point in time hopefully with neurology, as well as cardiology and pull things together for final plan on discharge. CAMDEN FISHER MD DR: MAGEN/guillaume JOB#: [id number] / [id number]
[2018-05-07 03:00] VITALS: BP 124/55
[2018-05-07 07:15] VITALS: BP 110/79
[2018-05-07] MEDS: IPRATRPIUM/ALBUTEROL 0.5/2.5MG 3 ML NEBU. NEB SCH ×4 (07:21→20:32)
[2018-05-07] MEDS: MECLIZINE HCL 12.5 MG TABLET. PO SCH ×3 (09:30→21:03)
[2018-05-07] MEDS: ASPIRIN 325 MG TABLET PO SCH (09:31)
[2018-05-07] MEDS: THIAMINE 100 MG TABLET. PO SCH (09:31)
[2018-05-07] MEDS: DIGOXIN 125 MCG TABLET. PO SCH (09:32)
[2018-05-07] MEDS: GABAPENTIN 300 MG CAPSULE. PO SCH ×3 (09:32→21:03)
[2018-05-07] MEDS: MAGNESIUM OXIDE 400 MG TABLET PO SCH ×2 (09:33→17:17)
[2018-05-07] MEDS: METOPROLOL TART IMMED RELEASE 50 MG TABLET. PO SCH ×2 (09:33→21:04)
[2018-05-07] MEDS: MULTIVITAMIN with MINERAL TABLET. PO SCH (09:34)
[2018-05-07] MEDS: HYDROcodone/APAP 5/325MG 1 TAB TABLET PO PRN ×4 (09:35→21:08)
--- NOTE | 2018-05-07 10:32 | RAD ---
MRA Brain History: Dizziness, syncope, recent falls Technique: 3-D [id number] MR angiography was performed of the brain. Comparison: None Contrast: None Findings: Determination of any degree of stenosis is based on NASCET criteria. There is some motion degradation. Both vertebral arteries constitute basilar artery although somewhat diminutive in caliber. Left vertebral artery is dominant. There is visualization of segments of bilateral PICAs, AICAs, and superior cerebellar arteries. There is visualization of bilateral posterior communicating arteries. There is visualization of the internal carotid arteries bilaterally at the skull base. There is patent anterior communicating artery. No significant intracranial stenosis or aneurysm is identified. Impression: 1. No significant intracranial stenosis or aneurysm is identified. Electronically signed by: Zak Márquez MD (05/07/2018 10:29 AM) [email or web address]
[2018-05-07 11:02] VITALS: BP 107/75
--- NOTE | 2018-05-07 12:21 | PN ---
DATE: 05/07/2018 LOCATION: He is in room 422 SUBJECTIVE: The patient is awake, alert, getting ready to eat breakfast. He has had no further syncope or presyncope. Upon long discussion with him, I believe a lot of this is orthostatic as all 4 of the episodes that he has passed out, has been when he has gotten up and been within several steps of getting up. He does not call this dizzy as he states this is what it feels like when you are going to pass out that is not dizzy. He does have dizzy which he describes as off balance and is particularly bad in the shower when he closes his eyes that he has to hold on and I suspect this is imbalance from his peripheral neuropathy. OBJECTIVE: VITAL SIGNS: Stable. He is afebrile. CHEST: Reveals diminished breath sounds but clear. HEART: Irregular. ABDOMEN: Benign. EXTREMITIES: Still reveal bandages just below his left knee and boot on his right foot at the site of the metatarsal fracture. LABORATORY DATA: His hemoglobin A1c is good at 5.5. Serum protein electrophoresis is pending. Vitamin B12 level is normal. Again, a cortisol level was reported out as low. IMPRESSION: 1. Syncope, at least times four prior to admission with multiple underlying problems including chronic obstructive pulmonary disease, atrial fibrillation, coronary artery disease and some atrial fibrillation since admission with a rapid ventricular response. 2. Neuropathy with decreased balance. PLAN: At this point, Neurology has ordered imaging of the head, which will happen this morning. I am going to add orthostatic blood pressures to his regimen and see if indeed this is a problem. CAMDEN FISHER MD DR: MAGEN/guillaume JOB#: [id number] / [id number]
--- NOTE | 2018-05-07 14:02 | PDOC ---
PROGRESS NOTES Assessment Assessment Syncope. Persistent dizziness. Metabolic encephalopathy. Falls. Right 5th metatarsal fracture. Pulmonary infiltrate. Pulmonary effusion. AFib. CAD. HTN. HLD. Peripheral neuropathy. Alcohol use/abuse. Obesity. No evidence of acute CVA or intracranial artery high grade stenosis. RECOMMENDATIONS/PLAN: Continue Coumadin. Continue Statin HS. Meclizine 12.5 mg to 25 mg tid. Treat medical and cardiac diseases. OT/PT. Weight reduction. FU with PCP. Past Medical History Cardiovascular: AFIB, CAD, HTN, [place] Pulmonary: COPD GI: GERD, Other (colonic polyps) Hepatobiliary: Hep A/B/C (A) Psych: Anxiety, Depression Musculoskeletal: Osteoarthritis Renal/: Other (nephrolithiasis) Past Surgical History Appendectomy, Tonsillectomy (adenoidectomy), Colon Resection, Other (cardiac catheterization, coronary stents) Family History CAD, Other (Alzheimer's) Social History , quit smoking 20 years ago, 3 or 4 whiskey drinks a day, quit 2 weeks ago, retired ALLERGY: Reviewed. MEDICATIONS: Refer to [facility] REVIEW OF SYSTEMS: Constitutional: Obese. Head: No traumatic brain or head injury. Skin: No edema, or rash. Ear: No infection. Eyes: No vision loss, or diplopia. Nose: No bleeding or purulent discharges. Hearing: No hearing decrease. Neck: No injury. Cardiac: CAD, HTN, HLD Pulmonary: Pneumonia? GI: No GI Ulcer, GI bleeding. Urinary/genital: UTI. Endocrine: obesity. Skeletomuscular: falls, fracture. Neurological: see HP. Psychiatric: Denies drug use/abuse. Otherwise, not [id number] review of systems. PHYSICAL EXAMINATION: General appearance in subacute distress. HEENT: Normocephalic and nontraumatic. Eyes, nose, ears, and throat are unremarkable. Neck is supple. No lymphadenopathy. No Crepitus. Cardiovascular: S1, S2, regular rate and rhythm. Pulmonary: Mildly decreased.to auscultation bilaterally. Abdomen: Bowel sounds are positive. Extremities: Right foot 5th metatarsal fracture. Restriction of range of motion in right foot. NEUROLOGICAL EXAMINATION: Alert. Oriented to time, place and person. PERRL. EOMI. CN: no focal findings. Muscle tone: within normal. Muscle strength: 4 DTR: 1+ Plantar reflex: Flexor response left side. Gait: not examined in bed. Sensory exam: no abnormal findings. No cerebellar signs elicited. F-T-N test fine. Objective Objective Vital Signs Date Time Temp Pulse Resp B/P (MAP) Pulse Ox O2 Delivery O2 Flow Rate FiO2 05/07/18 11:31 96 Nasal Cannula 2.0 05/07/18 11:02 97.4 83 20 107/75 (86) 97.4 Vitals Signs Vitals VS - Last 72 Hours, by Label Date Time Temp Pulse Resp B/P (MAP) Pulse Ox O2 Delivery O2 Flow Rate FiO2 05/07/18 11:31 96 Nasal Cannula 2.0 05/07/18 11:02 97.4 83 20 107/75 (86) 95 Nasal Cannula 97.4 05/07/18 10:45 90 Nasal Cannula 2.0 05/07/18 09:35 90 Nasal Cannula 2.0 05/07/18 09:33 85 110/79 05/07/18 09:32 85 110/79 05/07/18 07:23 90 Nasal Cannula 2.0 05/07/18 07:15 97.6 85 18 110/79 (89) 94 Nasal Cannula 97.6 05/07/18 03:00 97.7 56 18 124/55 (78) 95 Nasal Cannula 2.0 97.7 05/06/18 23:00 97.9 63 18 113/47 (69) 90 Nasal Cannula 2.0 97.9 05/06/18 20:59 54 146/89 05/06/18 20:00 Nasal Cannula 2.0 05/06/18 20:00 16 05/06/18 19:35 96 Nasal Cannula 2.0 05/06/18 19:00 94 Nasal Cannula 2.0 05/06/18 19:00 97.5 54 18 146/89 (108) 90 Nasal Cannula 2.0 97.5 05/06/18 15:12 Nasal Cannula 2.0 05/06/18 15:00 97.6 94 18 105/77 (86) 94 Nasal Cannula 2.0 97.6 05/06/18 14:46 98 Nasal Cannula 2.0 05/06/18 14:43 81 124/86 05/06/18 11:26 98 Nasal Cannula 2.0 05/06/18 09:17 81 124/86 05/06/18 09:15 98 Nasal Cannula 2.0 05/06/18 07:50 97.4 81 124/86 (99) 98 Nasal Cannula 2.0 97.4 05/06/18 07:40 Nasal Cannula 2.0 05/06/18 07:39 98 Nasal Cannula 2.0 05/06/18 07:00 97.9 85 18 122/86 (98) 96 Room Air 97.9 Medication Medications Current Medications Digoxin (Lanoxin) 125 mcg DAILY PO Last administered on 05/07/18at 09:32; Start 05/06/18 at 14:30 Meclizine HCl (Antivert) 12.5 mg TID PO Last administered on 05/07/18at 09:30; Start 05/06/18 at 17:30 Simvastatin (Zocor) 10 mg QHS PO Last administered on 05/06/18at 20:59; Start 05/06/18 at 21:00 Comment Review of Relevant I have reviewed the following items elayne (where applicable) has been applied. ROSE HERNANDEZ MD May 07, 2018 14:02
[2018-05-07 15:11] VITALS: BP_SYST 106; BP_SYST 88; BP_SYST 91; BP_DIAS 46; BP_DIAS 54; BP_DIAS 63
--- NOTE | 2018-05-07 15:48 | PDOC ---
ROBIN TUCKER FEATURES REPORTER 05/07/18 1548: CARDIO Progress Notes Date and Time Date of Service 05/07/2018 Time of Evaluation 1530 Subjective Subjective: No Chest Pain, No shortness of breath, No Palpitations Vitals Vitals Vital Signs Date Time Temp Pulse Resp B/P (MAP) Pulse Ox O2 Delivery O2 Flow Rate FiO2 05/07/18 15:11 83 91/46 (61) 05/07/18 15:11 97.2 20 95 Nasal Cannula 97.2 05/07/18 14:04 2.0 Weight Weight [ ] Laboratory Labs Laboratory Tests Test 05/07/18 13:55 Cortisol PM Sample 4.4 ug/dL (3.1-16.7) Physical Exam HEENT: Neck Supple W Full Motion Chest: Symmetric LUNGS: Other (diminished) Heart: S1S2, no murmurs, irregularly irregular (AFIB) Abdomen: Soft N/T Extremities: Other (1+ bilateral LE pitting edema) Neurology: alert, oriented, follow commands Assessment Assessment 1. Recurrent syncope; potential orthostasis. Still has positional dizziness. 2. CAD s/p previous PCI/stent placement. LVEF 55-60% 3. AFIB RVR; remains on AFIB. HR 90-110 post nebulizer. 4. HTN: at low end 5. Hyperlipidemia; LDL 86 6. Frequent falls. Right fifth metatarsal fracture 7. Macrocytic anemia: intermittent ingestion of ETOH "[place]" Recommendations 1. Continue dig for rate control. Unable to further metoprolol with current low BP end 2. Continue coumadin for stroke prevention for now. Discussed with pt in regards to avoid alcohol if possible with coumadin use. 3. Continue secondary prevention measures 4. Will consider for outpatient loop recorder to r/o any other contributing arrhythmias/tachy valentino episodes. . 5. Will repeat orthostatic readings.Discussed with staff. May need to consider for ROBERTO/CVN if BP remains low, rate not controlled and continued dizzy spells. TANIKA SUMNER MD 05/07/18 5210: CARDIO Progress Notes Plan Plan Patient seen and examined. Agree with above nurse practitioner note He continues to have mild lightheadedness. He has positive orthostasis based on his vital signs as his blood pressure drops from 106 systolic to 88. His heart rate is significantly better controlled with initiation of digoxin. Suspect component of vagal hyperactivity. Would continue present dose of metoprolol and digoxin. Could consider initiation of Midodrine if necessary. We will plan for outpt loop recorder implantation and then reassess rate control measures. He would be a poor candidate for ROBERTO/CVN as he has had afib for quite sometime and will likely not covert to SR. Discussed walking precautions in light of orthostasis. Supportive care. Will f/u in the office next week. Thanks. ROBIN TUCKER APRN May 07, 2018 15:48 TANIKA SUMNER MD May 07, 2018 18:45
[2018-05-07] MEDS: WARFARIN 5 MG TABLET. PO SCH (16:29)
[2018-05-07] MEDS: AMITRIPTYLINE HCL 25 MG TABLET. PO SCH (16:30)
[2018-05-07 17:18] LABS: ALBUM 2.8 g/dL (2.9-4.4); ALPHA 1 0.2 g/dL (0.0-0.4); ALPHA 2 0.6 g/dL (0.4-1.0); BETA 0.8 g/dL (0.7-1.3); GAMMA 0.8 g/dL (0.4-1.8); PROTEIN TOTAL 5.2 g/dL (6.0-8.5); SPEP AG RATIO 1.2 (0.7-1.7)
[2018-05-07 19:00] VITALS: BP_SYST 112; BP_SYST 134; BP_SYST 136; BP_SYST 97; BP_DIAS 69; BP_DIAS 81; BP_DIAS 87; BP_DIAS 88
--- NOTE | 2018-05-07 21:02 | EEG ---
DATE OF SERVICE: 05/06/2018 EEG NUMBER: [id number] OBJECTIVE: This is a 62-year-old male patient with history of syncope versus seizure. EEG was requested to help rule out seizure. METHODS: Twenty electrodes were applied according to the international 10-20 electrode placement system. EKG monitoring, hyperventilation, intermittent photic stimulation, monopolar and bipolar montages were routinely utilized. The record was obtained on a digital system with video monitoring. MEDICATIONS: No anti-seizure medication. FINDINGS: 1. Background: The patient was recorded in the awake and drowsy states. No sleep state was recorded. The overall background amplitude is 10-25 microvolts. A posterior dominant rhythm of 8-10 Hz is observed. 2. Abnormalities: No specific epileptiform discharge or electrographic seizure is seen. No focal or diffuse slowing. 3. Activation: Hyperventilation was performed with good efforts and normal response. Intermittent photic stimulation was performed with photic driving. No specific epileptiform discharge or electrographic seizure induced by hyperventilation or intermittent photic stimulation. IMPRESSION: This EEG is a normal study for the awake and drowsy states. No sleep state was recorded. No focal, lateralizing, specific epileptiform discharge or electrographic seizure is seen. ROSE HERNANDEZ MD DR: LUCAS/guillaume JOB#: [id number] / [id number] HENRY
[2018-05-07] MEDS: SIMVASTATIN 10 MG TABLET PO SCH (21:04)
[2018-05-07 23:00] VITALS: BP 111/84
[2018-05-08] VITALS (10 sets, daily range): BP systolic 97–139; BP diastolic 62–97
[2018-05-08] MEDS: HYDROcodone/APAP 5/325MG 1 TAB TABLET PO PRN ×4 (06:35→20:29)
[2018-05-08] MEDS: IPRATRPIUM/ALBUTEROL 0.5/2.5MG 3 ML NEBU. NEB SCH ×4 (07:26→20:31)
[2018-05-08 08:04] LABS: PROTHROMBIN TIME PATIENT 26.3 SEC (11.7-14.0)
[2018-05-08 08:17] LABS: CALCIUM 9.1 mg/dL (8.5-10.1); CREATININE 1.1 mg/dL (0.7-1.3); GFR 68.1; MAGNESIUM 1.9 mg/dL (1.8-2.4); POTASSIUM 4.2 mmol/L (3.5-5.1)
[2018-05-08] MEDS: GABAPENTIN 300 MG CAPSULE. PO SCH ×3 (08:19→20:29)
[2018-05-08] MEDS: THIAMINE 100 MG TABLET. PO SCH (08:19)
[2018-05-08] MEDS: DIGOXIN 125 MCG TABLET. PO SCH (08:19)
[2018-05-08 08:20] LABS: HEMATOCRIT 36.6 % (39.0-53.0); HEMOGLOBIN 12.3 g/dL (13.0-17.5); RED BLOOD COUNT 3.36 x10^6/uL (4.30-5.70); RED CELL DISTRIBUTION WIDTH 16.7 % (11.5-14.5); WHITE BLOOD COUNT 5.6 x10^3/uL (4.0-11.0)
[2018-05-08] MEDS: MAGNESIUM OXIDE 400 MG TABLET PO SCH ×2 (08:20→17:40)
[2018-05-08] MEDS: MECLIZINE HCL 12.5 MG TABLET. PO SCH ×3 (08:20→20:30)
[2018-05-08] MEDS: METOPROLOL TART IMMED RELEASE 50 MG TABLET. PO SCH ×2 (08:20→20:30)
[2018-05-08] MEDS: MULTIVITAMIN with MINERAL TABLET. PO SCH (08:20)
[2018-05-08] MEDS: ASPIRIN 325 MG TABLET PO SCH (08:20)
--- NOTE | 2018-05-08 10:38 | PDOC ---
ROBIN TUCKER SUPER[employer]OR [employer]TE[employer] 05/08/18 1037: CARDIO Progress Notes Date and Time Date of Service 05/08/2018 Time of Evaluation 1010 Subjective Subjective: No Chest Pain, No shortness of breath, No Palpitations, Other ( still has dizziness when standing up) Vitals Vitals Vital Signs Date Time Temp Pulse Resp B/P (MAP) Pulse Ox O2 Delivery O2 Flow Rate FiO2 05/08/18 08:20 85 104/73 05/08/18 08:00 Nasal Cannula 1.5 05/08/18 07:26 94 05/08/18 07:25 97.9 20 97.9 Weight Weight [ ] Laboratory Labs Laboratory Tests Test 05/07/18 13:55 05/08/18 06:30 Cortisol PM Sample 4.4 ug/dL (3.1-16.7) White Blood Count 5.6 x10^3/uL (4.0-11.0) Red Blood Count 3.36 x10^6/uL (4.30-5.70) Hemoglobin 12.3 g/dL (13.0-17.5) Hematocrit 36.6 % (39.0-53.0) Mean Corpuscular Volume 109 fL (79-100) Mean Corpuscular Hemoglobin 37 pg (25-35) Mean Corpuscular Hemoglobin Concent 34 g/dL (31-37) Red Cell Distribution Width 16.7 % (11.5-14.5) Platelet Count 245 x10^3/uL (140-400) Prothrombin Time 26.3 SEC (11.7-14.0) Prothromb Time International Ratio 2.5 (0.8-1.1) Sodium Level 138 mmol/L (136-145) Potassium Level 4.2 mmol/L (3.5-5.1) Chloride Level 99 mmol/L (98-107) Carbon Dioxide Level 33 mmol/L (21-32) Anion Gap 6 (6-14) Blood Urea Nitrogen 6 mg/dL (8-26) Creatinine 1.1 mg/dL (0.7-1.3) Estimated GFR (Cockcroft-Gault) 68.1 Glucose Level 93 mg/dL (70-99) Calcium Level 9.1 mg/dL (8.5-10.1) Magnesium Level 1.9 mg/dL (1.8-2.4) Physical Exam HEENT: Neck Supple W Full Motion Chest: Symmetric LUNGS: Other (diminished) Heart: S1S2, irregularly irregular (AFIB) Abdomen: Soft N/T Extremities: Other (1+ bilateral LE pitting edema) Neurology: alert, oriented, follow commands Assessment Assessment 1. Recurrent syncope; notable for orthostasis and still has bursts of RVR 2. CAD s/p previous PCI/stent placement. LVEF 55-60% 3. AFIB RVR; remains on AFIB, rate controlled in 90s baseline with persistent bursts of RVR INR 2.5 4. HTN: BP at low end 5. Hyperlipidemia; LDL 86 6. Frequent falls with right fifth metatarsal fracture 7. Macrocytic anemia: intermittent ingestion of ETOH "[place]" 8. COPD/DACIA Recommendations 1. Continue dig for rate control. Unable to further metoprolol with noted orthostasis/low end BP. Has refused to start abdominal binder and compression stockings. Florinef is an option if persistent 2. Continue coumadin for stroke prevention. Reinforced with pt in regards to avoid alcohol with coumadin use. No cardioversion in the past, Start on amiodarone and if no conversion then will consider ROBERTO/CVN tomorrow 3. Continue secondary prevention measures. Anticipate DC tomorrow. 4. Will consider for outpatient loop recorder to r/o any other contributing arrhythmias/tachy valentino episodes. . 5. 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 Intolerant use of mask as well as nasal pillow initiated about 5 months ago. Will need alternative moving forward. Will defer to PCP. 6. Encouraged wt loss and diet modification and maintain hydration adequacy. discussed with staff. Wt. TANIKA SUMNER MD 05/09/18 0517: CARDIO Progress Notes Plan Plan Late entry for 05/08/2018. Patient seen and examined. Agree with above nurse practitioner note. We will start him on amiodarone for better rate control given persistent tachyarrhythmias. Consider ROBERTO/cardioversion tomorrow. Discussed r/b/a with patient. ROBIN TUCKER APRN May 08, 2018 10:37 TANIKA SUMNER MD May 09, 2018 05:17
[2018-05-08] MEDS: AMIODARONE HCL 200 MG TABLET. PO SCH ×2 (13:06→20:30)
--- NOTE | 2018-05-08 14:26 | PDOC ---
PROGRESS NOTES Assessment Assessment Syncope. Dizziness. Metabolic encephalopathy. Falls. Right 5th metatarsal fracture. Pulmonary infiltrate. Pulmonary effusion. AFib. CAD. HTN. HLD. Peripheral neuropathy. Alcohol use/abuse. Obesity. RECOMMENDATIONS/PLAN: Continue Coumadin. Continue Statin HS. Meclizine 12.5 mg to 25 mg tid. Treat medical and cardiac diseases. OT/PT. EEG on 05/06: Normal. Past Medical History Cardiovascular: AFIB, CAD, HTN, [place] Pulmonary: COPD GI: GERD, Other (colonic polyps) Hepatobiliary: Hep A/B/C (A) Psych: Anxiety, Depression Musculoskeletal: Osteoarthritis Renal/: Other (nephrolithiasis) Past Surgical History Appendectomy, Tonsillectomy (adenoidectomy), Colon Resection, Other (cardiac catheterization, coronary stents) Family History CAD, Other (Alzheimer's) Social History , quit smoking 20 years ago, 3 or 4 whiskey drinks a day, quit 2 weeks ago, retired ALLERGY: Reviewed. MEDICATIONS: Refer to [facility] REVIEW OF SYSTEMS: Constitutional: Obese. Head: No traumatic brain or head injury. Skin: No edema, or rash. Ear: No infection. Eyes: No vision loss, or diplopia. Nose: No bleeding or purulent discharges. Hearing: No hearing decrease. Neck: No injury. Cardiac: CAD, HTN, HLD Pulmonary: Pneumonia? GI: No GI Ulcer, GI bleeding. Urinary/genital: UTI. Endocrine: obesity. Skeletomuscular: falls, fracture. Neurological: see HP. Psychiatric: Denies drug use/abuse. Otherwise, not [id number] review of systems. PHYSICAL EXAMINATION: General appearance in subacute distress. HEENT: Normocephalic and nontraumatic. Eyes, nose, ears, and throat are unremarkable. Neck is supple. No lymphadenopathy. No Crepitus. Cardiovascular: S1, S2, regular rate and rhythm. Pulmonary: Mildly decreased.to auscultation bilaterally. Abdomen: Bowel sounds are positive. Extremities: Right foot 5th metatarsal fracture. Restriction of range of motion in right foot. NEUROLOGICAL EXAMINATION: Alert. Oriented to time, place and person. PERRL. EOMI. CN: no focal findings. Muscle tone: within normal. Muscle strength: 4+ DTR: 1+ Plantar reflex: Flexo response left side. Gait: not examined in bed. Sensory exam: no abnormal findings. No cerebellar signs elicited. F-T-N test fine. Objective Objective Vital Signs Date Time Temp Pulse Resp B/P (MAP) Pulse Ox O2 Delivery O2 Flow Rate FiO2 05/08/18 13:06 68 118/76 05/08/18 11:19 Nasal Cannula 2.0 05/08/18 10:49 97.6 18 94 97.6 Vitals Signs Vitals VS - Last 72 Hours, by Label Date Time Temp Pulse Resp B/P (MAP) Pulse Ox O2 Delivery O2 Flow Rate FiO2 05/08/18 13:06 68 118/76 05/08/18 11:19 Nasal Cannula 2.0 05/08/18 10:49 97.6 68 18 118/76 (90) 94 Nasal Cannula 3.0 97.6 05/08/18 08:20 85 104/73 05/08/18 08:19 85 104/73 05/08/18 08:00 Nasal Cannula 1.5 05/08/18 07:26 94 Nasal Cannula 2.0 05/08/18 07:25 97.9 85 20 104/73 (83) 92 Nasal Cannula 3.0 97.9 05/08/18 07:23 82 113/77 (89) Nasal Cannula 3.0 05/08/18 07:20 84 129/79 (96) Nasal Cannula 3.0 05/08/18 06:35 16 92 Nasal Cannula 2.0 05/08/18 03:00 97.9 87 20 127/97 (107) 92 Nasal Cannula 97.9 05/07/18 23:00 97.5 80 20 111/84 (93) 97 Nasal Cannula 97.5 05/07/18 22:08 16 90 Nasal Cannula 2.0 05/07/18 21:08 16 90 Nasal Cannula 2.0 05/07/18 21:04 67 134/88 05/07/18 20:34 Nasal Cannula 2.0 05/07/18 20:18 Nasal Cannula 2.0 05/07/18 19:00 84 136/81 (99) 05/07/18 19:00 50 112/87 (95) 05/07/18 19:00 97.4 67 20 134/88 (103) 90 Nasal Cannula 97.4 05/07/18 19:00 42 97/69 (78) 05/07/18 17:19 Room Air 05/07/18 15:55 96 Nasal Cannula 2.0 05/07/18 15:11 83 91/46 (61) 05/07/18 15:11 97.2 59 20 106/63 (77) 95 Nasal Cannula 97.2 05/07/18 15:11 66 88/54 (65) 05/07/18 14:04 96 Nasal Cannula 2.0 05/07/18 11:31 96 Nasal Cannula 2.0 05/07/18 11:02 97.4 83 20 107/75 (86) 95 Nasal Cannula 97.4 05/07/18 09:35 90 Nasal Cannula 2.0 05/07/18 09:33 85 110/79 05/07/18 09:32 85 110/79 05/07/18 08:10 Nasal Cannula 2.0 05/07/18 07:23 90 Nasal Cannula 2.0 05/07/18 07:15 97.6 85 18 110/79 (89) 94 Nasal Cannula 97.6 Laboratory Laboratory Laboratory Tests Test 05/08/18 06:30 White Blood Count 5.6 x10^3/uL (4.0-11.0) Red Blood Count 3.36 x10^6/uL (4.30-5.70) Hemoglobin 12.3 g/dL (13.0-17.5) Hematocrit 36.6 % (39.0-53.0) Mean Corpuscular Volume 109 fL (79-100) Mean Corpuscular Hemoglobin 37 pg (25-35) Mean Corpuscular Hemoglobin Concent 34 g/dL (31-37) Red Cell Distribution Width 16.7 % (11.5-14.5) Platelet Count 245 x10^3/uL (140-400) Prothrombin Time 26.3 SEC (11.7-14.0) Prothromb Time International Ratio 2.5 (0.8-1.1) Sodium Level 138 mmol/L (136-145) Potassium Level 4.2 mmol/L (3.5-5.1) Chloride Level 99 mmol/L (98-107) Carbon Dioxide Level 33 mmol/L (21-32) Anion Gap 6 (6-14) Blood Urea Nitrogen 6 mg/dL (8-26) Creatinine 1.1 mg/dL (0.7-1.3) Estimated GFR (Cockcroft-Gault) 68.1 Glucose Level 93 mg/dL (70-99) Calcium Level 9.1 mg/dL (8.5-10.1) Magnesium Level 1.9 mg/dL (1.8-2.4) Medication Medications Current Medications Amiodarone HCl (Cordarone) 400 mg BID PO Last administered on 05/08/18at 13:06 ; Start 05/08/18 at 13:00 Amiodarone HCl (Cordarone) 400 mg BID PO ; Start 05/08/18 at 21:00; Status Cancel Comment Review of Relevant I have reviewed the following items elayne (where applicable) has been applied. ROSE HERNANDEZ MD May 08, 2018 14:26
[2018-05-08] MEDS: WARFARIN 5 MG TABLET. PO SCH (16:29)
--- NOTE | 2018-05-08 18:56 | PN ---
DATE: 05/08/2018 LOCATION: He is in room 422. SUBJECTIVE: The patient is awake, alert, getting ready to eat breakfast. He has had no near syncopal episodes in the last 24 hours. OBJECTIVE: VITAL SIGNS: Stable. He is afebrile. He does have significant orthostatic blood pressure changes, which I believe is the reason for his syncope prior to admission. CHEST: Reveals decreased breath sounds, but clear. HEART: Irregular. ABDOMEN: Benign. EXTREMITIES: Stable. IMPRESSION: Syncope, felt due to orthostatic hypotension with multiple other problems including chronic obstructive pulmonary disease, atrial fibrillation, coronary artery disease, neuropathy. PLAN: At this point, with MRA of the head being normal, cardiac workup seemingly to be normal, I would expect discharge later today if okay with consultants. I pressed upon him drinking plenty of fluids, get a pair of support hose. We may need something like Florinef in the future if this continues to be a problem, but I would hope we can do it without going any further than just simple steps. He will need some pain pills, which have been left with the nurse for his right fifth metatarsal fracture if indeed he is deemed ready for discharge later today. CAMDEN FISHER MD DR: MAGEN/guillaume JOB#: [id number] / [id number]
[2018-05-08] MEDS: SIMVASTATIN 10 MG TABLET PO SCH (20:30)
[2018-05-08] MEDS: AMITRIPTYLINE HCL 25 MG TABLET. PO SCH (20:30)
[2018-05-08] MEDS ORDERED: AMIODARONE HCL 200 MG TABLET. PO SCH (21:00)
[2018-05-09] VITALS (13 sets, daily range): BP systolic 97–144; BP diastolic 60–90
[2018-05-09] MEDS: HYDROcodone/APAP 5/325MG 1 TAB TABLET PO PRN ×3 (04:43→18:43)
[2018-05-09 07:01] LABS: PROTHROMBIN TIME PATIENT 30.3 SEC (11.7-14.0)
[2018-05-09] MEDS ORDERED: LIDOCAINE 2% VISCOUS 15 ML SOLUTION. SWSW ONE (07:15)
[2018-05-09] MEDS ORDERED: LIDOCAINE 2% TOPICAL JELLY 30GM TUBE. TP ONE (07:15)
[2018-05-09] MEDS ORDERED: BENZOCAINE ONE 20% MUCOSAL SPRAY. MM (07:15)
[2018-05-09] MEDS: IPRATRPIUM/ALBUTEROL 0.5/2.5MG 3 ML NEBU. NEB SCH ×4 (07:23→19:27)
[2018-05-09] MEDS ORDERED: FUROSEMIDE 20 MG/2 ML VIAL. IVP ONE (08:00)
[2018-05-09] MEDS: METOPROLOL TART IMMED RELEASE 50 MG TABLET. PO SCH ×2 (08:04→22:00)
[2018-05-09] MEDS: AMIODARONE HCL 200 MG TABLET. PO SCH ×2 (08:04→22:03)
[2018-05-09] MEDS: DIGOXIN 125 MCG TABLET. PO SCH (08:05)
[2018-05-09] MEDS: MECLIZINE HCL 12.5 MG TABLET. PO SCH ×3 (08:05→22:00)
[2018-05-09] MEDS: MAGNESIUM OXIDE 400 MG TABLET PO SCH ×2 (08:05→18:40)
[2018-05-09] MEDS: GABAPENTIN 300 MG CAPSULE. PO SCH ×3 (08:05→22:00)
[2018-05-09] MEDS: ASPIRIN 325 MG TABLET PO SCH (08:05)
[2018-05-09] MEDS: MULTIVITAMIN with MINERAL TABLET. PO SCH (08:06)
[2018-05-09] MEDS: THIAMINE 100 MG TABLET. PO SCH (08:06)
[2018-05-09] MEDS ORDERED: PROPOFOL 20 ML IV ONE (08:51)
--- NOTE | 2018-05-09 08:55 | RAD ---
Portable chest, 05/08/2018: HISTORY: Congestive heart failure, syncope, coronary artery disease Comparison is made to a study from 05/03/2018. The heart is at the upper limits of normal in size. Coronary artery radiopacities are present. The pulmonary vascularity remains normal. A calcified granuloma is present in the left lower chest. No left lung infiltrate is seen. There are unchanged pleural-parenchymal opacities in the right base appearance suggests a combination of pleural fluid and underlying atelectasis/infiltrate. A component of scarring cannot be excluded. Similar findings were present on the CT study from 01/25/2018. No new abnormality is detected. IMPRESSION: Unchanged chronic right basilar pleural-parenchymal opacities compatible with pleural fluid and underlying atelectasis/infiltrate. Electronically signed by: Nathan Barragan MD (05/09/2018 8:51 AM) [facility]
[2018-05-09] MEDS ORDERED: PHENYLEPHRINE in 0.9% NACL PF 1 MG/10 ML SYRINGE. IV ONE (09:00)
[2018-05-09] MEDS ORDERED: IV RINGERS,LACTATED 1000ML 1,000 ML IV ONE (09:15)
--- NOTE | 2018-05-09 10:38 | CARD ---
MR#: [id number] Date of Study: 05/09/2018 Ordering Physician: ROBIN TUCKER, Referring Physician: MAR ANTONY Tech: Pamela Gonzalez APPROVED REPORT EXAM: Transesophageal echocardiogram with color flow Doppler and Synchronized Cardioversion. INDICATION Thrombus Reason For Test : Rule out Intracardiac Thrombus. PROCEDURE After obtaining informed consent, patient underwent transesophageal echo in the PACU. Type of Sedation : General Anesthesia Sedation was administered by Delvin Hanley. Sedation was achieved with Propofol 170mg intravenously. Transesophageal probe was inserted and advanced into esophagus by Myron Meadows MD. The ROBERTO was performed without complications. Synchronized Cardioversion attempted: Successful Synchronized Cardioversion acheived with 300 Joules after 1 attempt(s). Throughout the procedure, the blood pressure, pulse oximetry, cardiac rhythm, and rate were monitored . LEFT VENTRICLE The left ventricle is normal size. There is borderline to mild concentric left ventricular hypertroph y. The left ventricular systolic function is normal and the ejection fraction is within normal range. EF 55% There is normal LV segmental wall motion. Tissue Doppler imaging reveals moderate left ventric ular diastolic dysfunction. RIGHT VENTRICLE The right ventricle is moderately dilated. The right ventricle is mildly hypertrophied. The right sara tricular systolic function is normal. ATRIA The left atrium size is normal. The right atrium is dilated. Interatrial septum has moderate lipomato us hypertrophy. There is no thrombus noted in the left atrial appendage. AORTIC VALVE The aortic valve is normal in structure and function. Doppler and Color Flow revealed no significant aortic regurgitation. There is no significant aortic valvular stenosis. There is no aortic valvular v egetation. MITRAL VALVE Mild A2 prolapse. There is no mitral valve stenosis. Doppler and Color Flow revealed no mitral valve regurgitation noted. TRICUSPID VALVE The tricuspid valve is normal in structure and function. Doppler and Color Flow revealed trace to mil d tricuspid regurgitation. RVSP 24 mm Hg There is no tricuspid valve prolapse or vegetation. There is no tricuspid valve stenosis. PULMONIC VALVE The pulmonary valve is normal in structure and function. Doppler and Color Flow revealed no pulmonic valvular regurgitation. There is no pulmonic valvular stenosis. GREAT VESSELS The aortic root is normal in size. The ascending aorta is normal in size. The IVC is normal in size a nd collapses >50% with inspiration. Critical Notification Critical Value: No <Conclusion> The left ventricular systolic function is normal and the ejection fraction is within normal range.EF 55% The right ventricle is moderately dilated. Successful CVN to SR. Signed by : Demetrio Meadows, Electronically Approved : 05/09/2018 10:37:31
--- NOTE | 2018-05-09 16:26 | CARD ---
EXAM: Transesophageal echocardiogram with color flow Doppler and Synchronized Cardioversion. INDICATION Thrombus Reason For Test : Rule out Intracardiac Thrombus. PROCEDURE After obtaining informed consent, patient underwent transesophageal echo in the PACU. Type of Sedation : General Anesthesia Sedation was administered by Delvin Hanley. Sedation was achieved with Propofol 170mg intravenously. Transesophageal probe was inserted and advanced into esophagus by Myron Meadows MD. The ROBERTO was performed without complications. Synchronized Cardioversion attempted: Successful Synchronized Cardioversion acheived with 300 Joules after 1 attempt(s). Throughout the procedure, the blood pressure, pulse oximetry, cardiac rhythm, and rate were monitored. LEFT VENTRICLE The left ventricle is normal size. There is borderline to mild concentric left ventricular hypertrophy. The left ventricular systolic function is normal and the ejection fraction is within normal range.EF 55% There is normal LV segmental wall motion. Tissue Doppler imaging reveals moderate left ventricular diastolic dysfunction. RIGHT VENTRICLE The right ventricle is moderately dilated. The right ventricle is mildly hypertrophied. The right ventricular systolic function is normal. ATRIA The left atrium size is normal. The right atrium is dilated. Interatrial septum has moderate lipomatous hypertrophy. There is no thrombus noted in the left atrial appendage. AORTIC VALVE The aortic valve is normal in structure and function. Doppler and Color Flow revealed no significant aortic regurgitation. There is no significant aortic valvular stenosis. There is no aortic valvular vegetation. MITRAL VALVE Mild A2 prolapse. There is no mitral valve stenosis. Doppler and Color Flow revealed no mitral valve regurgitation noted. TRICUSPID VALVE The tricuspid valve is normal in structure and function. Doppler and Color Flow revealed trace to mild tricuspid regurgitation. RVSP 24 mm Hg There is no tricuspid valve prolapse or vegetation. There is no tricuspid valve stenosis. PULMONIC VALVE The pulmonary valve is normal in structure and function. Doppler and Color Flow revealed no pulmonic valvular regurgitation. There is no pulmonic valvular stenosis. GREAT VESSELS The aortic root is normal in size. The ascending aorta is normal in size. The IVC is normal in size and collapses >50% with inspiration. Critical Notification Critical Value: No <Conclusion> The left ventricular systolic function is normal and the ejection fraction is within normal range.EF 55% The right ventricle is moderately dilated. Successful CVN to SR. Signed by : Demetrio Meadows, Electronically Approved : 05/09/2018 10:37:31 HENRY
--- NOTE | 2018-05-09 18:31 | PDOC ---
PROGRESS NOTES Assessment Assessment Syncope. Dizziness. Metabolic encephalopathy. Falls. Right 5th metatarsal fracture. Pulmonary infiltrate. Pulmonary effusion. AFib. CAD. HTN. HLD. Peripheral neuropathy. Alcohol use/abuse. Obesity. RECOMMENDATIONS/PLAN: Continue Coumadin. Continue Statin HS. Meclizine 12.5 mg to 25 mg tid. Treat medical and cardiac diseases. OT/PT. EEG on 05/06: Normal. Past Medical History Cardiovascular: AFIB, CAD, HTN, [place] Pulmonary: COPD GI: GERD, Other (colonic polyps) Hepatobiliary: Hep A/B/C (A) Psych: Anxiety, Depression Musculoskeletal: Osteoarthritis Renal/: Other (nephrolithiasis) Past Surgical History Appendectomy, Tonsillectomy (adenoidectomy), Colon Resection, Other (cardiac catheterization, coronary stents) Family History CAD, Other (Alzheimer's) Social History , quit smoking 20 years ago, 3 or 4 whiskey drinks a day, quit 2 weeks ago, retired ALLERGY: Reviewed. MEDICATIONS: Refer to [facility] REVIEW OF SYSTEMS: Constitutional: Obese. Head: No traumatic brain or head injury. Skin: No edema, or rash. Ear: No infection. Eyes: No vision loss, or diplopia. Nose: No bleeding or purulent discharges. Hearing: No hearing decrease. Neck: No injury. Cardiac: CAD, HTN, HLD Pulmonary: Pneumonia? GI: No GI Ulcer, GI bleeding. Urinary/genital: UTI. Endocrine: obesity. Skeletomuscular: falls, fracture. Neurological: see HP. Psychiatric: Denies drug use/abuse. Otherwise, not -pljxc review of systems. PHYSICAL EXAMINATION: General appearance in subacute distress. HEENT: Normocephalic and nontraumatic. Eyes, nose, ears, and throat are unremarkable. Neck is supple. No lymphadenopathy. No Crepitus. Cardiovascular: S1, S2, regular rate and rhythm. Pulmonary: Mildly decreased.to auscultation bilaterally. Abdomen: Bowel sounds are positive. Extremities: Right foot 5th metatarsal fracture. Restriction of range of motion in right foot. NEUROLOGICAL EXAMINATION: Alert. Oriented to time, place and person. PERRL. EOMI. CN: no focal findings. Muscle tone: within normal. Muscle strength: 4+ DTR: 1+ Plantar reflex: Flexor response left side. Gait: able to walk. Sensory exam: no abnormal findings. No cerebellar signs elicited. F-T-N test fine. Objective Objective Vital Signs Date Time Temp Pulse Resp B/P (MAP) Pulse Ox O2 Delivery O2 Flow Rate FiO2 05/09/18 15:27 Nasal Cannula 2.0 05/09/18 15:00 97.8 77 20 97/67 (77) 92 97.8 Intake and Output 05/09/18 07:00 Intake Total 1720 ml Balance 1720 ml Intake Oral 1720 ml # Voids 3 Vitals Signs Vitals VS - Last 72 Hours, by Label Date Time Temp Pulse Resp B/P (MAP) Pulse Ox O2 Delivery O2 Flow Rate FiO2 05/09/18 15:27 Nasal Cannula 2.0 05/09/18 15:11 Room Air 05/09/18 15:00 97.8 77 20 97/67 (77) 92 Room Air 97.8 05/09/18 12:41 76 118/75 (89) 05/09/18 12:11 72 129/72 (91) 05/09/18 11:50 Nasal Cannula 2.0 05/09/18 11:41 74 18 130/90 (103) 95 Nasal Cannula 3.0 05/09/18 11:26 82 18 110/63 (79) 95 Nasal Cannula 3.0 05/09/18 11:11 73 18 123/86 (98) 95 Nasal Cannula 3.0 05/09/18 10:56 73 18 128/86 (100) 95 Nasal Cannula 3.0 05/09/18 10:43 98.4 77 18 115/74 (88) 96 Nasal Cannula 3.0 98.4 05/09/18 10:19 98.0 80 15 98/65 95 Room Air 2.0 98.0 Nasal Cannula 05/09/18 10:04 98.0 80 15 93/68 95 Nasal Cannula 2.0 98.0 05/09/18 09:49 98.0 83 15 93/65 99 Nasal Cannula 2.0 98.0 05/09/18 09:49 Nasal Cannula 2.0 05/09/18 09:10 98.0 83 15 112/85 99 Nasal Cannula 2.0 98.0 05/09/18 08:05 88 05/09/18 08:04 88 112/73 05/09/18 08:04 88 112/73 05/09/18 08:00 Nasal Cannula 2.0 05/09/18 07:25 95 Nasal Cannula 2.0 05/09/18 07:00 98.0 88 18 112/73 (86) 95 Nasal Cannula 3.0 98.0 05/09/18 05:43 16 98 Nasal Cannula 05/09/18 05:00 94 20 126/74 (91) 98 Nasal Cannula 3.0 05/09/18 05:00 97.6 66 18 110/60 (77) 90 Nasal Cannula 3.0 97.6 05/09/18 05:00 95 20 125/82 (96) 97 Nasal Cannula 3.0 05/09/18 04:43 16 95 Nasal Cannula 05/09/18 03:52 98.2 71 20 99/60 (73) 95 Nasal Cannula 3.0 98.2 05/08/18 23:00 98.7 90 18 97/62 (74) 94 Nasal Cannula 3.0 98.7 05/08/18 21:29 2.0 05/08/18 20:32 Nasal Cannula 2.0 05/08/18 20:30 90 139/84 05/08/18 20:30 90 139/84 05/08/18 20:29 16 94 Nasal Cannula 3.0 05/08/18 20:00 Nasal Cannula 2.0 05/08/18 19:00 98.5 90 18 139/84 (102) 94 Nasal Cannula 3.0 98.5 05/08/18 15:07 Nasal Cannula 2.0 05/08/18 15:05 94 114/78 (90) Nasal Cannula 3.0 05/08/18 15:02 93 110/85 (93) Nasal Cannula 3.0 05/08/18 15:00 98.0 92 18 120/82 (95) 92 Nasal Cannula 3.0 98.0 05/08/18 13:06 68 118/76 05/08/18 11:19 Nasal Cannula 2.0 05/08/18 10:49 97.6 68 18 118/76 (90) 94 Nasal Cannula 3.0 97.6 05/08/18 08:20 85 104/73 05/08/18 08:19 85 104/73 05/08/18 08:00 Nasal Cannula 1.5 05/08/18 07:26 94 Nasal Cannula 2.0 05/08/18 07:25 97.9 85 20 104/73 (83) 92 Nasal Cannula 3.0 97.9 05/08/18 07:23 82 113/77 (89) Nasal Cannula 3.0 05/08/18 07:20 84 129/79 (96) Nasal Cannula 3.0 Laboratory Laboratory Laboratory Tests Test 05/09/18 05:45 Prothrombin Time 30.3 SEC (11.7-14.0) Prothromb Time International Ratio 3.0 (0.8-1.1) Medication Medications Current Medications Amiodarone HCl (Cordarone) 400 mg BID PO ; Start 05/08/18 at 21:00; Status Cancel Benzocaine (Hurricaine One) 3 spray 1X ONCE MM Last administered on at 09:30; Start 05/09/18 at 07:15; Stop 05/09/18 at 07:16; Status DC Docusate Sodium (Colace) 100 mg DAILY PO ; Start 05/09/18 at 18:00 Furosemide (Lasix) 20 mg 1X ONCE IVP Last administered on 05/09/18at 08:03; Start 05/09/18 at 08:00; Stop 05/09/18 at 08:01; Status DC Lidocaine HCl (Viscous Lidocaine) 15 ml 1X ONCE SWSW Last administered on at 09:30; Start 05/09/18 at 07:15; Stop 05/09/18 at 07:16; Status DC Lidocaine HCl (Xylocaine 2% Topical 30gm Tube) 1 all 1X ONCE TP Last administered on 05/09/18at 09:30; Start 05/09/18 at 07:15; Stop 05/09/18 at 07 :16; Status DC Phenylephrine HCl (PHENYLEPHRINE in 0.9% NACL PF) 1 mg STK-MED ONCE IV ; Start 05/09/18 at 09:00; Stop 05/09/18 at 14:25; Status DC Propofol 20 ml @ As Directed STK-MED ONCE IV ; Start 05/09/18 at 08:51; Stop 05/09/18 at 08:52; Status DC Ringer's Solution 1,000 ml @ 75 mls/hr 1X ONCE IV Last administered on at 09:15; Start 05/09/18 at 09:15; Stop 05/09/18 at 22:34 Warfarin Sodium (Coumadin) 5 mg DAILY16 PO ; Start 05/10/18 at 16:00 Comment Review of Relevant I have reviewed the following items elayne (where applicable) has been applied. ROSE HERNANDEZ MD May 09, 2018 18:31
[2018-05-09] MEDS: DOCUSATE SODIUM 100 MG CAPSULE. PO SCH (18:40)
--- NOTE | 2018-05-09 20:47 | PN ---
DATE: 05/09/2018 LOCATION: He is in room 422. SUBJECTIVE: The patient is awake, alert, is n.p.o. this morning for ROBERTO and cardioversion. He is also going to have a loop recorder implanted per his history. OBJECTIVE: VITAL SIGNS: Stable. He is afebrile. He does have dizziness on standing still and orthostatic changes on blood pressure. Does have an abdominal binder on. CHEST: Reveals decreased breath sounds, but clear. HEART: Irregular with rate of 90. ABDOMEN: Benign. EXTREMITIES: Stable. ASSESSMENT: Syncope, felt due to orthostatic hypotension with multiple other problems including chronic obstructive pulmonary disease, atrial fibrillation with rapid ventricular response at times, coronary artery disease, neuropathy. PLAN: We will await ROBERTO with cardioversion, implantable loop recorder. We will expect discharge tomorrow. His INR this morning is 3 on 5 mg of Coumadin. Once again, support hose, good fluid intake encouraged and if he continued to have symptoms for enough in the future, although I do believe at this point that if he is able to cardiovert and stay in a normal rhythm, it may solve a lot of the problems. CAMDEN FISHER MD DR: MAGEN/guillaume JOB#: [id number] / [id number]
[2018-05-09] MEDS: SIMVASTATIN 10 MG TABLET PO SCH (21:59)
[2018-05-09] MEDS: AMITRIPTYLINE HCL 25 MG TABLET. PO SCH (22:03)
[2018-05-10] VITALS (9 sets, daily range): BP systolic 76–124; BP diastolic 47–76
[2018-05-10] MEDS: HYDROcodone/APAP 5/325MG 1 TAB TABLET PO PRN ×3 (00:34→09:48)
[2018-05-10 05:19] LABS: PROTHROMBIN TIME PATIENT 32.2 SEC (11.7-14.0)
[2018-05-10] MEDS: IPRATRPIUM/ALBUTEROL 0.5/2.5MG 3 ML NEBU. NEB SCH ×2 (06:55→11:09)
--- NOTE | 2018-05-10 08:30 | PDOC ---
GENERAL General: see discharge summary. VITAL SIGNS Vital Signs: Vital Signs Date Time Temp Pulse Resp B/P (MAP) Pulse Ox O2 Delivery O2 Flow Rate FiO2 05/10/18 07:30 16 Room Air 05/10/18 06:57 94 2.0 05/10/18 03:00 98.6 78 120/72 (88) 98.6 I & O I & O Intake and Output 05/10/18 07:00 Intake Total 1550 ml Output Total 1250 ml Balance 300 ml Intake Oral 1200 ml IV Total 350 ml Output Urine Total 1250 ml # Voids 10 ALLERGIES Allergies: Allergies Coded Allergies Type Severity Reaction Last Updated Verified No Known Drug Allergies 05/09/18 No MEDS Medications: Current Medications Medications (Trade) Dose Ordered Sig/Meredith Start Time Stop Time Status Last Admin Dose Admin Acetaminophen/ Hydrocodone Bitart (Lortab 5/325) 1 tab PRN Q3HRS PRN 05/03/18 17:15 05/10/18 06:26 1 TAB Albuterol/ Ipratropium (Duoneb) 3 ml RTQID 05/03/18 20:00 05/10/18 06:55 3 ML Amiodarone HCl (Cordarone) 400 mg BID 05/08/18 21:00 Cancel Amitriptyline HCl (Elavil) 25 mg QHS 05/03/18 21:00 05/09/18 22:03 25 MG Aspirin ([place] Aspirin) 325 mg DAILY 05/04/18 09:00 05/08/18 08:20 325 MG Benzocaine (Hurricaine One) 3 spray 1X ONCE 05/09/18 07:15 05/09/18 07:16 DC 05/09/18 09:30 3 SPRAY Digoxin (Lanoxin) 125 mcg DAILY 05/06/18 14:30 05/09/18 08:05 125 MCG Docusate Sodium (Colace) 100 mg DAILY 05/09/18 18:00 05/09/18 18:40 100 MG Furosemide (Lasix) 20 mg 1X ONCE 05/09/18 08:00 05/09/18 08:01 DC 05/09/18 08:03 20 MG Gabapentin (Neurontin) 300 mg TID 05/03/18 21:00 05/09/18 22:00 300 MG Lidocaine HCl (Viscous Lidocaine) 15 ml 1X ONCE 05/09/18 07:15 05/09/18 07:16 DC 05/09/18 09:30 15 ML Lidocaine HCl (Xylocaine 2% Topical 30gm Tube) 1 all 1X ONCE 05/09/18 07:15 05/09/18 07:16 DC 05/09/18 09:30 1 ALL Magnesium Oxide (Magnesium Oxide) 400 mg BIDAFTMEAL 05/04/18 11:30 05/09/18 18:40 400 MG Meclizine HCl (Antivert) 12.5 mg TID 05/06/18 17:30 05/09/18 22:00 12.5 MG Metoprolol Tartrate (Lopressor) 50 mg BID 05/03/18 21:00 05/09/18 22:00 50 MG Multivitamins (Thera M Plus) 1 tab DAILY 05/05/18 12:00 05/08/18 08:20 1 TAB Non-Formulary Medication (Tiotropium [place] (Spiriva)) 2 inh DAILY 05/04/18 09:00 UNV Phenylephrine HCl (PHENYLEPHRINE in 0.9% NACL PF) 1 mg STK-MED ONCE 05/09/18 09:00 05/09/18 14:25 DC Propofol 20 ml @ As Directed STK-MED ONCE 05/09/18 08:51 05/09/18 08:52 DC Ringer's Solution 1,000 ml @ 75 mls/hr 1X ONCE 05/09/18 09:15 05/09/18 22:34 DC 05/09/18 09:15 75 MLS/HR Simvastatin (Zocor) 10 mg QHS 05/06/18 21:00 05/09/18 21:59 10 MG Sodium Chloride 500 ml @ 500 mls/hr 1X ONCE 05/03/18 12:30 05/03/18 13:29 DC Thiamine Mononitrate (Vitamin B-1) 100 mg DAILY 05/05/18 11:00 05/08/18 08:19 100 MG Warfarin Sodium (Coumadin Per Physician) 1 each PRN DAILY PRN 05/03/18 17:30 05/09/18 12:33 1 EACH Warfarin Sodium (Coumadin) 5 mg DAILY16 05/10/18 16:00 LAB Lab: Laboratory Tests Test 05/10/18 04:00 Prothrombin Time 32.2 SEC (11.7-14.0) Prothromb Time International Ratio 3.2 (0.8-1.1) CAMDEN FISHER MD May 10, 2018 08:30
[2018-05-10] MEDS: DIGOXIN 125 MCG TABLET. PO SCH (09:00)
[2018-05-10] MEDS: GABAPENTIN 300 MG CAPSULE. PO SCH (09:43)
[2018-05-10] MEDS: ASPIRIN 325 MG TABLET PO SCH (09:43)
[2018-05-10] MEDS: MAGNESIUM OXIDE 400 MG TABLET PO SCH (09:44)
[2018-05-10] MEDS: MULTIVITAMIN with MINERAL TABLET. PO SCH (09:44)
[2018-05-10] MEDS: DOCUSATE SODIUM 100 MG CAPSULE. PO SCH (09:44)
[2018-05-10] MEDS: THIAMINE 100 MG TABLET. PO SCH (09:44)
[2018-05-10] MEDS: AMIODARONE HCL 200 MG TABLET. PO SCH (09:46)
--- NOTE | 2018-05-10 11:24 | PDOC ---
CARDIO Progress Notes Date and Time Date of Service 05/10/2018 Time of Evaluation 1100 Subjective Subjective: No Chest Pain, No shortness of breath, No Palpitations, Other ( better with abd binder) Vitals Vitals Vital Signs Date Time Temp Pulse Resp B/P (MAP) Pulse Ox O2 Delivery O2 Flow Rate FiO2 05/10/18 11:10 Nasal Cannula 2.0 05/10/18 09:48 16 05/10/18 09:46 79 107/63 05/10/18 07:00 97.5 95 97.5 Weight Weight [ ] Input and Output Intake and Output Intake and Output 05/10/18 07:00 Intake Total 1550 ml Output Total 1250 ml Balance 300 ml Intake Oral 1200 ml IV Total 350 ml Output Urine Total 1250 ml # Voids 10 Laboratory Labs Laboratory Tests Test 05/10/18 04:00 Prothrombin Time 32.2 SEC (11.7-14.0) Prothromb Time International Ratio 3.2 (0.8-1.1) Physical Exam HEENT: Neck Supple W Full Motion Chest: Symmetric LUNGS: Other (diminished) Heart: S1S2, RRR (SR with occasional PACs) Abdomen: Soft N/T, Other (truncal obesity) Extremities: No Calf Tenderness, Other (1+ bilateral LE pitting edema) Neurology: alert, oriented, follow commands Assessment Assessment 1. Recurrent syncope; notable for orthostasis. BP steady with no significant drop with abdominal binder 2. CAD s/p previous PCI/stent placement. LVEF 55-60%. clinically stable 3. AFIB RVR; Post ROBERTO/CVN. Maintaining SR. 4. HTN: controlled 5. Hyperlipidemia; LDL 86 6. Frequent falls with right fifth metatarsal fracture 7. Macrocytic anemia: intermittent ingestion of ETOH "[place]" 8. COPD/DACIA: stable Recommendations 1. Stop dig. Continue with metoprolol low dose and titrating amiodarone PO dose. Rx given. Continue abdominal binder. 2. Continue coumadin for stroke prevention. And continue ASA. 3. Reinforced with pt in regards to avoid alcohol with coumadin use. 4. Continue secondary prevention measures. May DC per cardiac standpoint. Event monitor will be considered as an outpt. 5. 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 Intolerant use of mask as well as nasal pillow initiated about 5 months ago. Will need alternative moving forward. Will defer to PCP. 6. Encouraged wt loss and diet modification and maintain hydration adequacy. discussed with staff. Wt. 7. Follow up in office in 4 weeks. ROBIN TUCKER APRN May 10, 2018 11:24
[2018-05-10] MEDS: MECLIZINE HCL 12.5 MG TABLET. PO SCH (11:57)
[2018-05-10] MEDS: METOPROLOL TART IMMED RELEASE 50 MG TABLET. PO SCH (11:58)
[2018-05-10] MEDS ORDERED: WARFARIN 5 MG TABLET. PO SCH (16:00)
--- NOTE | 2018-05-10 16:00 | PDOC ---
PROGRESS NOTES Assessment Assessment Syncope. Dizziness. Metabolic encephalopathy. Falls. Right 5th metatarsal fracture. Pulmonary infiltrate. Pulmonary effusion. AFib. CAD. HTN. HLD. COPD? Peripheral neuropathy. Alcohol use/abuse. Obesity. RECOMMENDATIONS/PLAN: Continue Coumadin. Continue Statin HS. Treat medical and cardiac diseases. OT/PT. FU with PCP. FU with Ortho. EEG on 05/06: Normal. Past Medical History Cardiovascular: AFIB, CAD, HTN, [place] Pulmonary: COPD GI: GERD, Other (colonic polyps) Hepatobiliary: Hep A/B/C (A) Psych: Anxiety, Depression Musculoskeletal: Osteoarthritis Renal/: Other (nephrolithiasis) Past Surgical History Appendectomy, Tonsillectomy (adenoidectomy), Colon Resection, Other (cardiac catheterization, coronary stents) Family History CAD, Other (Alzheimer's) Social History , quit smoking 20 years ago, 3 or 4 whiskey drinks a day, quit 2 weeks ago, retired ALLERGY: Reviewed. MEDICATIONS: Refer to [facility] REVIEW OF SYSTEMS: Constitutional: Obese. Head: No traumatic brain or head injury. Skin: No edema, or rash. Ear: No infection. Eyes: No vision loss, or diplopia. Nose: No bleeding or purulent discharges. Hearing: No hearing decrease. Neck: No injury. Cardiac: CAD, HTN, HLD Pulmonary: Pneumonia? GI: No GI Ulcer, GI bleeding. Urinary/genital: UTI. Endocrine: obesity. Skeletomuscular: falls, fracture. Neurological: see HP. Psychiatric: Denies drug use/abuse. Otherwise, not [id number] review of systems. PHYSICAL EXAMINATION: General appearance in subacute distress. HEENT: Normocephalic and nontraumatic. Eyes, nose, ears, and throat are unremarkable. Neck is supple. No lymphadenopathy. No Crepitus. Cardiovascular: S1, S2, regular rate and rhythm. Pulmonary: Mildly decreased.to auscultation bilaterally. Abdomen: Bowel sounds are positive. Extremities: Right foot 5th metatarsal fracture. Restriction of range of motion in right foot. NEUROLOGICAL EXAMINATION: Alert. Oriented to time, place and person. PERRL. EOMI. CN: no focal findings. Muscle tone: within normal. Muscle strength: 4+ DTR: 1+ Plantar reflex: Flexor response left side. Gait: able to walk with cane. Sensory exam: no abnormal findings except left ankle pain. No cerebellar signs elicited. F-T-N test fine. Objective Objective Vital Signs Date Time Temp Pulse Resp B/P (MAP) Pulse Ox O2 Delivery O2 Flow Rate FiO2 05/10/18 11:58 84 112/76 05/10/18 11:10 Nasal Cannula 2.0 05/10/18 11:00 16 05/10/18 10:55 93 05/10/18 10:45 96.1 96.1 Intake and Output 05/10/18 07:00 Intake Total 1550 ml Output Total 1250 ml Balance 300 ml Intake Oral 1200 ml IV Total 350 ml Output Urine Total 1250 ml # Voids 10 Vitals Signs Vitals VS - Last 72 Hours, by Label Date Time Temp Pulse Resp B/P (MAP) Pulse Ox O2 Delivery O2 Flow Rate FiO2 05/10/18 11:58 84 112/76 05/10/18 11:10 Nasal Cannula 2.0 05/10/18 11:00 16 Room Air 05/10/18 10:55 84 112/76 (88) 93 Nasal Cannula 3.0 05/10/18 10:50 79 124/68 (86) Nasal Cannula 3.0 05/10/18 10:45 96.1 80 18 115/74 (88) 80 Room Air 96.1 05/10/18 09:48 16 Room Air 05/10/18 09:46 79 107/63 05/10/18 08:00 Room Air 05/10/18 07:35 76/48 (57) Room Air 05/10/18 07:30 80/47 (58) Room Air 05/10/18 07:25 110/60 (77) Room Air 05/10/18 07:00 97.5 79 16 107/63 (78) 95 Room Air 97.5 05/10/18 06:57 94 Nasal Cannula 2.0 05/10/18 06:26 Room Air 05/10/18 03:00 98.6 78 14 120/72 (88) 97 Room Air 98.6 05/10/18 01:30 2.0 05/10/18 00:34 Nasal Cannula 2.0 05/09/18 23:00 98.9 80 14 140/69 (92) 97 Room Air 98.9 05/09/18 22:03 86 144/71 05/09/18 22:00 86 144/71 05/09/18 20:00 Nasal Cannula 2.0 05/09/18 19:43 95 05/09/18 19:28 95 Nasal Cannula 2.0 05/09/18 19:00 98.6 86 14 144/71 (95) 97 Room Air 98.6 05/09/18 18:43 Room Air 05/09/18 15:27 Nasal Cannula 2.0 05/09/18 15:11 Room Air 05/09/18 15:00 97.8 77 20 97/67 (77) 92 Room Air 97.8 05/09/18 12:41 76 118/75 (89) 05/09/18 12:11 72 129/72 (91) 05/09/18 11:50 Nasal Cannula 2.0 05/09/18 11:41 74 18 130/90 (103) 95 Nasal Cannula 3.0 05/09/18 11:26 82 18 110/63 (79) 95 Nasal Cannula 3.0 05/09/18 11:11 73 18 123/86 (98) 95 Nasal Cannula 3.0 05/09/18 10:56 73 18 128/86 (100) 95 Nasal Cannula 3.0 05/09/18 10:43 98.4 77 18 115/74 (88) 96 Nasal Cannula 3.0 98.4 05/09/18 10:19 98.0 80 15 98/65 95 Room Air 2.0 98.0 Nasal Cannula 05/09/18 10:04 98.0 80 15 93/68 95 Nasal Cannula 2.0 98.0 05/09/18 09:49 98.0 83 15 93/65 99 Nasal Cannula 2.0 98.0 05/09/18 09:49 Nasal Cannula 2.0 05/09/18 09:10 98.0 83 15 112/85 99 Nasal Cannula 2.0 98.0 05/09/18 08:05 88 05/09/18 08:04 88 112/73 05/09/18 08:04 88 112/73 05/09/18 08:00 Nasal Cannula 2.0 05/09/18 07:25 95 Nasal Cannula 2.0 05/09/18 07:00 98.0 88 18 112/73 (86) 95 Nasal Cannula 3.0 98.0 Laboratory Laboratory Laboratory Tests Test 05/10/18 04:00 Prothrombin Time 32.2 SEC (11.7-14.0) Prothromb Time International Ratio 3.2 (0.8-1.1) Medication Medications Current Medications Docusate Sodium (Colace) 100 mg DAILY PO Last administered on 05/10/18at 09:44 ; Start 05/09/18 at 18:00; Stop 05/10/18 at 15:11; Status DC Warfarin Sodium (Coumadin) 5 mg DAILY16 PO ; Start 05/10/18 at 16:00; Stop at 16:00; Status DC Comment Review of Relevant I have reviewed the following items elayne (where applicable) has been applied. ROSE HERNANDEZ MD May 10, 2018 16:00
--- NOTE | 2018-05-10 17:29 | DS ---
DATE OF DISCHARGE: 05/10/2018 PRIMARY DIAGNOSIS: Syncope -- multiple. ADDITIONAL DIAGNOSES: 1. Fracture of right fifth metatarsal with fall due to syncope. 2. Orthostatic hypotension. 3. Atrial fibrillation with rapid ventricular response with cardioversion during the stay back into a normal sinus rhythm with amiodarone added. 4. Chronic obstructive pulmonary disease. 5. Coronary artery disease with prior stenting. 6. Neuropathy. CHIEF COMPLAINT AND HISTORY OF PRESENT ILLNESS: This is a 62-year-old white male admitted through the Emergency Room on the day of admission with multiple episodes of syncope. SUMMARY OF STAY: The patient was admitted, worked up thoroughly throughout the stay by Ortho, Neuro and Cardiology. Ortho put him in a shoe for the fracture of the fifth metatarsal. Neurology did add some meclizine during the stay. Cardiology followed along. The patient had an echo and a transesophageal echo for cardioversion during the stay with normal left ventricular function, no significant valvular disease. He was placed on amiodarone and cardioverted towards the end of the stay with him maintaining a sinus rhythm at the time of discharge, amiodarone was added for this in addition. He was on the morning of discharge definitely felt better overall and hopefully, this will get rid of one of the reasons for his ongoing disability with shortness of breath, etc was discussed in detail for him to go get measured for a pair of support hose after discharge to push fluids. We will see him in the office next week and he may need something like Florinef if he continues to have orthostatic symptoms, which he actually felt was better on the day of discharge in addition. DISPOSITION: The patient is discharged to home on cardiac diet, activity as tolerated, office in 1 week. DISCHARGE MEDICATIONS: Listed on the med rec and have been addressed. CAMDEN FISHER MD DR: MAGEN/guillaume JOB#: [id number] / [id number]
== END 2018-05-10 14:20 | disposition home or self-care (01) | DRG 562 ==
LOC: ER 11:23 → 4 NORTH 14:10
PROVIDERS: ADMIT Family Medicine; ATTEND Family Medicine
PROC: 5A2204Z Restoration of Cardiac Rhythm, Single (ICD-10-PCS; principal; 2018-05-03)
DX: S92.351A Displaced fracture of fifth metatarsal bone, right foot, initial encounter for closed fracture (principal); G93.41 Metabolic encephalopathy; J90 Pleural effusion, not elsewhere classified; I95.1 Orthostatic hypotension; I48.2 Chronic atrial fibrillation; D53.9 Nutritional anemia, unspecified; D75.89 Other specified diseases of blood and blood-forming organs; E66.9 Obesity, unspecified; E78.00 Pure hypercholesterolemia, unspecified; E78.5 Hyperlipidemia, unspecified; E83.42 Hypomagnesemia; G47.33 Obstructive sleep apnea (adult) (pediatric); G62.9 Polyneuropathy, unspecified; I10 Essential (primary) hypertension; I25.10 Atherosclerotic heart disease of native coronary artery without angina pectoris; J44.9 Chronic obstructive pulmonary disease, unspecified; K21.9 Gastro-esophageal reflux disease without esophagitis; M47.9 Spondylosis, unspecified; M53.82 Other specified dorsopathies, cervical region; F32.9 Major depressive disorder, single episode, unspecified; F41.9 Anxiety disorder, unspecified; M19.90 Unspecified osteoarthritis, unspecified site; R29.6 Repeated falls; S00.03XA Contusion of scalp, initial encounter; W18.39XA Other fall on same level, initial encounter; Z79.01 Long term (current) use of anticoagulants; Z82.0 Family history of epilepsy and other diseases of the nervous system; Z82.49 Family history of ischemic heart disease and other diseases of the circulatory system; Z86.010 Personal history of colon polyps; Z87.442 Personal history of urinary calculi; Z87.891 Personal history of nicotine dependence; Z90.49 Acquired absence of other specified parts of digestive tract; Z95.5 Presence of coronary angioplasty implant and graft; Z99.81 Dependence on supplemental oxygen; Z79.899 Other long term (current) drug therapy; Y93.89 Activity, other specified; Y92.89 Other specified places as the place of occurrence of the external cause; Y99.8 Other external cause status; Z95.1 Presence of aortocoronary bypass graft
CPT/HCPCS: 29515; 36415; 70450; 70544; 71045; 72125; 73562; 73630; 76376; 80048; 80053; 80061; 80162; 81001; 82533; 82607; 82977; 83036; 83735; 83880; 84165; 84443; 84484; 85025; 85027; 85610; 85651; 85730; 86038; 92960; 93005; 93306; 93312; 93320; 93325; 94640; 94760; 95816; J1940; J2370; J2704; J7120; J7620; J8597; 97116; 97530; 99285-25

== ENCOUNTER → 2018-12-18 | Outpatient (CLI) | payer MEDICARE ==
[2018-05-10 11:58] VITALS: BP 112/76
[~2018-12-18] MED LIST changes: +AMIT25TA PO; +AMLO5TAB10 PO; -AMLO5TAB7 PO; +CARV12.511 PO; -CARV12.52 PO; -GABA-586 PO; +GABA300C18 PO
--- NOTE | 2018-12-18 15:51 | RAD ---
Chest, 2 views, 12/18/2018: HISTORY: Effusion, shortness of breath Comparison is made to a study from 05/08/2018. The heart appears to be at the upper limits of normal in size. A coronary artery stent is projected over the superior aspect of the left heart. The pulmonary vascularity is normal. There are granulomatous calcifications in the left chest and the mediastinum. There is a moderate right basilar opacity suggesting pleural fluid and underlying atelectasis/infiltrate. It appears to have worsened since the previous study. No left-sided pleural fluid or infiltrate is seen. IMPRESSION: 1. Borderline cardiomegaly with a coronary stent evident. 2. Moderate right basilar opacities compatible with chronic or recurrent pleural fluid and underlying atelectasis/infiltrate. Underlying neoplasm cannot be excluded. Electronically signed by: Nathan Barragan MD (12/18/2018 3:48 PM) [facility]
== END | disposition home or self-care (01) ==
LOC: RAD 14:55
PROVIDERS: ATTEND Internal Medicine Pulmonary Disease
DX: R06.02 Shortness of breath (principal)
CPT/HCPCS: 71046

== ENCOUNTER → 2019-01-10 | Outpatient (CLI) | payer MEDICARE ==
[2018-05-10 11:58] VITALS: BP 112/76
[~2019-01-10] MED LIST changes: +ASPI-612 PO; +ATOR40TA59 PO
--- NOTE | 2019-01-10 11:15 | RAD ---
Examination: CT CHEST WO CONTRAST History: Atelectasis Comparison/Correlation: 01/25/2018 CT chest without contrast Findings: Axial images of chest were obtained without contrast. Sagittal and coronal reformatted images were provided. Calcified aorticopulmonary window lymph nodes are present. Right paratracheal lymph node is enlarged measuring up to 1.2 cm short axis diameter. Calcified left hilar lymph nodes present. Significant calcification involving the proximal left anterior descending coronary artery noted. Calcific involvement of the right coronary artery and posterior descending artery noted. Calcification of the left circumflex artery of a lesser degree noted. Right sided pleural effusion is present with loculation of the basilar aspect. Adjacent atelectasis is noted at the basilar aspect. Linear atelectasis or scarring is noted involving the right lung field anteriorly. There is a 0.8 cm diameter calcified granuloma involving the lingula. Diffuse heterogeneous fatty infiltration of liver noted. Impression: Increase in right pleural effusion which is partially loculated the basilar aspect posteriorly is noted in the interval. Slight increase in adjacent atelectasis. Right paratracheal lymph node is enlarged. It is only slightly increased in size compared previous exam however. Fatty infiltration of liver. PQRS Compliance Statement: One or more of the following individualized dose reduction techniques were utilized for this examination: 1. Automated exposure control 2. Adjustment of the mA and/or kV according to patient size 3. Use of iterative reconstruction technique Electronically signed by: Alex Mike MD (01/10/2019 11:12 AM) [id number]
== END | disposition home or self-care (01) ==
LOC: CT 08:32
PROVIDERS: ATTEND Internal Medicine Pulmonary Disease
DX: J98.11 Atelectasis (principal); J90 Pleural effusion, not elsewhere classified; J84.10 Pulmonary fibrosis, unspecified; K76.0 Fatty (change of) liver, not elsewhere classified; I70.0 Atherosclerosis of aorta
CPT/HCPCS: 71250

== ENCOUNTER → 2019-03-27 | Outpatient (CLI) | payer MEDICARE ==
[2019-01-19 11:00] VITALS: BP 129/79
--- NOTE | 2019-03-27 18:11 | KCIC ---
Two-view chest HISTORY: Cough and shortness of breath. COPD. COMPARISON: 12/18/2018. FINDINGS: Cardiac silhouette is enlarged and stable since prior study. Abnormal opacities in the right lung base appears similar. Right pleural fluid or pleural thickening is also similar. No pneumothorax. No new left lung consolidation. Stable left dense nodule likely granuloma unchanged. No evidence of pneumothorax. No left pleural effusion. Aorta mildly tortuous, unchanged appearance. IMPRESSION: Pleural and parenchymal abnormalities in the right lung base are stable since the previous exam. Electronically signed by: Tobi Zavala MD (03/27/2019 6:08 PM) [id number]
== END | disposition home or self-care (01) ==
LOC: KCIC 14:32
PROVIDERS: ATTEND Family Medicine
DX: R91.8 Other nonspecific abnormal finding of lung field (principal)
CPT/HCPCS: 71046

== ENCOUNTER 2019-05-28 16:51 | Inpatient (IN) | payer MEDICARE ==
[2019-05-28] VITALS (13 sets, daily range): BP systolic 91–148; BP diastolic 60–97
[~2019-05-28] VITALS: Ht 180.3 cm; Wt 115.3 kg
[2019-05-28] MEDS ORDERED: dilTIAZem IV PUSH 25 MG/5 ML VIAL IVP ONE (17:00)
[2019-05-28] MEDS ORDERED: dilTIAZem INJ 125 MG in IV DEXTROSE 5% 100ML 100 ML IV ONE (17:00)
[2019-05-28 17:18] LABS: BASO % 1 % (0-3); EOS % 1 % (0-3); HEMATOCRIT 34.7 % (39.0-53.0); HEMOGLOBIN 11.2 g/dL (13.0-17.5); LYMPH # 0.7 x10^3/uL (1.0-4.8); LYMPH % 9 % (24-48); MEAN CORPUSCULAR HEMOGLOBIN 36 pg (25-35); MEAN CORPUSCULAR HGB CONC 32 g/dL (31-37); MEAN CORPUSCULAR VOLUME 110 fL (79-100); MONO # 0.6 x10^3/uL (0.0-1.1); MONO % 7 % (0-9); NEUT # 6.8 x10^3/uL (1.8-7.7); NEUT % 83 % (31-73); PLATELET COUNT 424 x10^3/uL (140-400); RED BLOOD COUNT 3.15 x10^6/uL (4.30-5.70); RED CELL DISTRIBUTION WIDTH 17.3 % (11.5-14.5); WHITE BLOOD COUNT 8.2 x10^3/uL (4.0-11.0)
--- NOTE | 2019-05-28 17:20 | RAD ---
PORTABLE CHEST 1V History: Atrial fibrillation with rapid ventricular response Comparison: March 27, 2019 Findings: Small bilateral layering pleural effusions. Mild interstitial thickening and vascular engorgement. Patchy bibasilar opacities. Cardiomegaly. No pneumothorax. Prior granulous disease. Impression: 1. Small bilateral pleural effusions with adjacent opacities, may represent atelectasis or consolidations. 2. Mild interstitial thickening and vascular engorgement, may indicate pulmonary edema. 3. Cardiomegaly. Electronically signed by: Emanuel Quiros DO (05/28/2019 5:17 PM) [id number]
[2019-05-28 17:40] LABS: CALCIUM 8.5 mg/dL (8.5-10.1); CREATININE 1.2 mg/dL (0.7-1.3); GFR 61.3; POTASSIUM 3.1 mmol/L (3.5-5.1)
[2019-05-28 17:45] LABS: PLT ESTIMATE INCREASED (ADEQUATE); POLYCHROMASIA SLIGHT
[2019-05-28 17:46] LABS: ANISOCYTOSIS SLIGHT
[2019-05-28 17:47] LABS: ALBUMIN 2.7 g/dL (3.4-5.0); ALBUMIN/GLOBULIN RATIO 0.7 (1.0-1.7); MAGNESIUM 1.4 mg/dL (1.8-2.4); TOTAL BILIRUBIN 0.8 mg/dL (0.2-1.0); TOTAL PROTEIN 6.4 g/dL (6.4-8.2)
--- NOTE | 2019-05-28 18:07 | PHYS DOC ---
Past Medical History Past Medical History: A-Fib, CAD, COPD, High Cholesterol, Heart Disease, Hypertension Additional Past Medical Histor: COLON POLYPS, NEUROPATHY Past Surgical History: Appendectomy, Other Additional Past Surgical Histo: COLON RESECTION, 4 CARDIAC STENTS Alcohol Use: Occasionally Drug Use: None Adult General Chief Complaint Chief Complaint: CHEST PAIN [facility] HPI Patient is a 63 year old male patient with history of atrial fibrillation on digoxin and Coumadin who presents via EMS with complaining of left arm pain. Patient complaining of left arm pain and dizziness since last night as a constant pain that getting worse with movement. Patient complaining of chronic shortness of breath without change and denies palpitation, nausea and vomiting, fever and chills, focal neuro deficit. Patient complaining of increasing lower extremity edema and denies missing his medication. Reported that patient had questionable ST elevation in V1 and V2. Patient had heart rate of 160s at arrival to ER with atrial fibrillation and RVR. Review of Systems Review of Systems Constitutional: Denies fever or chills [] Eyes: Denies change in visual acuity, redness, or eye pain [] HENT: Denies nasal congestion or sore throat [] Respiratory: Reports shortness of breath Cardiovascular: No additional information not addressed in HPI [] GI: Denies abdominal pain, nausea, vomiting, bloody stools or diarrhea [] : Denies dysuria or hematuria [] Musculoskeletal: Denies back pain or joint pain [] Integument: Denies rash or skin lesions [] Neurologic: Denies headache, focal weakness or sensory changes [] Endocrine: Denies polyuria or polydipsia [] All other systems were reviewed and found to be within normal limits, except as documented in this note. Current Medications Current Medications Current Medications Medications (Trade) Dose Ordered Sig/Meredith Start Time Stop Time Status Last Admin Dose Admin Diltiazem HCl (Cardizem Iv Push) 20 mg 1X ONCE 05/28/19 17:00 05/28/19 17:04 DC 05/28/19 17:24 20 MG Diltiazem HCl 125 mg/Dextrose 125 ml @ 10 mls/hr 1X ONCE 05/28/19 17:00 05/29/19 05:29 05/28/19 17:24 10 MLS/HR Allergies Allergies Allergies Coded Allergies Type Severity Reaction Last Updated Verified No Known Drug Allergies 05/09/18 No Physical Exam Physical Exam Constitutional: Well l nourished, mild distress, non-toxic appearance. [] HENT: Normocephalic, atraumatic. Eyes: PERRLA, EOMI, conjunctiva normal, no discharge. [] Neck: Normal range of motion, no tenderness, supple, no stridor. [] Cardiovascular: Irregularly irregular rhythm with tachycardia, no murmur [] Lungs & Thorax: Bilateral breath sounds clear to auscultation [] Abdomen: Bowel sounds normal, soft, no tenderness, no masses, no pulsatile masses. [] Skin: Warm, dry, no erythema, no rash. [] Back: No tenderness, no CVA tenderness. [] Extremities: No tenderness, no cyanosis, no clubbing, ROM intact, bilateral lower extremity 2+ edema. [] Neurologic: Alert and oriented X 3, no focal deficits noted. [] Psychologic: Affect normal, judgement normal, mood normal. [] Current Patient Data Vital Signs Vital Signs Date Time Temp Pulse Resp B/P (MAP) Pulse Ox O2 Delivery O2 Flow Rate FiO2 05/28/19 17:24 155 133/72 05/28/19 16:57 16 93 Nasal Cannula 3.0 05/28/19 16:51 98.6 98.6 Lab Values Laboratory Tests Test 05/28/19 17:10 White Blood Count 8.2 x10^3/uL (4.0-11.0) Red Blood Count 3.15 x10^6/uL (4.30-5.70) L Hemoglobin 11.2 g/dL (13.0-17.5) L Hematocrit 34.7 % (39.0-53.0) L Mean Corpuscular Volume 110 fL (79-100) H Mean Corpuscular Hemoglobin 36 pg (25-35) H Mean Corpuscular Hemoglobin Concent 32 g/dL (31-37) Red Cell Distribution Width 17.3 % (11.5-14.5) H Platelet Count 424 x10^3/uL (140-400) H Neutrophils (%) (Auto) 83 % (31-73) H Lymphocytes (%) (Auto) 9 % (24-48) L Monocytes (%) (Auto) 7 % (0-9) Eosinophils (%) (Auto) 1 % (0-3) Basophils (%) (Auto) 1 % (0-3) Neutrophils # (Auto) 6.8 x10^3/uL (1.8-7.7) Lymphocytes # (Auto) 0.7 x10^3/uL (1.0-4.8) L Monocytes # (Auto) 0.6 x10^3/uL (0.0-1.1) Eosinophils # (Auto) 0.0 x10^3/uL (0.0-0.7) Basophils # (Auto) 0.0 x10^3/uL (0.0-0.2) Platelet Estimate Increased (ADEQUATE) Giant Platelets Occ Polychromasia Slight Anisocytosis Slight Macrocytosis Mod Prothrombin Time 14.0 SEC (11.7-14.0) Prothrombin Time INR 1.1 (0.8-1.1) Sodium Level 142 mmol/L (136-145) Potassium Level 3.1 mmol/L (3.5-5.1) L Chloride Level 98 mmol/L (98-107) Carbon Dioxide Level 30 mmol/L (21-32) Anion Gap 14 (6-14) Blood Urea Nitrogen 9 mg/dL (8-26) Creatinine 1.2 mg/dL (0.7-1.3) Estimated GFR (Cockcroft-Gault) 61.3 BUN/Creatinine Ratio 8 (6-20) Glucose Level 112 mg/dL (70-99) H Calcium Level 8.5 mg/dL (8.5-10.1) Magnesium Level 1.4 mg/dL (1.8-2.4) L Total Bilirubin 0.8 mg/dL (0.2-1.0) Aspartate Amino Transferase (AST) 30 U/L (15-37) Alanine Aminotransferase (ALT) 20 U/L (16-63) Alkaline Phosphatase 134 U/L (46-116) H Creatine Kinase 53 U/L (39-308) Troponin I Quantitative 0.398 ng/mL (0.000-0.055) KM-Pnh-T-Type Natriuretic Peptide 1748 pg/mL (0-124) H Total Protein 6.4 g/dL (6.4-8.2) Albumin 2.7 g/dL (3.4-5.0) L Albumin/Globulin Ratio 0.7 (1.0-1.7) L Lipase 116 U/L (73-393) Thyroid Stimulating Hormone (TSH) 3.711 uIU/mL (0.358-3.74) Laboratory Tests 05/28/19 17:10 Laboratory Tests 05/28/19 17:10 EKG EKG EKG interpreted by me. EKG at 1656 showed atrial fibrillation with RVR at rate of 168, low voltage QRS, poor R-wave progress in anteroseptal leads, no acute ST and T-wave elevation. Repeat EKG at 1751 after Cardizem bolus and drip showed atrial fibrillation with rate of 122, no changes compared to EKG dated 01/15/2019 Radiology/Procedures Radiology/Procedures [][facility] [address] [place], [place] [id number] IMAGING REPORT Signed PATIENT: INGE PEARL ACCOUNT: [id number] : 1955 LOCATION: ER AGE: 63 SEX: M EXAM STATUS: PRE ER ORD. PHYSICIAN: JASON REGAN MD REASON: atrial fibrillation with RVR PROCEDURE: PORTABLE CHEST 1V PORTABLE CHEST 1V History: Atrial fibrillation with rapid ventricular response Comparison: March 27, 2019 Findings: Small bilateral layering pleural effusions. Mild interstitial thickening and vascular engorgement. Patchy bibasilar opacities. Cardiomegaly. No pneumothorax. Prior granulous disease. Impression: 1. Small bilateral pleural effusions with adjacent opacities, may represent atelectasis or consolidations. 2. Mild interstitial thickening and vascular engorgement, may indicate pulmonary edema. 3. Cardiomegaly. Electronically signed by: Emanuel Quiros DO (05/28/2019 5:17 PM) [id number] DICTATED and SIGNED BY: EMANUEL QUIROS DO DATE: 05/28/19 1487 Course & Med Decision Making Course & Med Decision Making Pertinent Labs and Imaging studies reviewed. (See chart for details) Evaluation of patient in ER showed 63-year-old male patient brought in by EMS because of left arm pain without chest pain. Patient had atrial fibrillation with RVR without hypertension and treated with Cardizem bolus and drip with decrease of heart rate to 110s. Patient had mild elevation of troponin without new EKG changes compared to previous one.Patient requiring admission for further evaluation and treatment. Discussed with Dr. Duffy who is in agreement with admission. Discussed findings and plan with patient and family, who acknowledge understanding and agreement. Dragon Disclaimer Dragon Disclaimer This electronic medical record was generated, in whole or in part, using a voice recognition dictation system. Departure Departure Impression: Primary Impression: Atrial fibrillation with RVR Additional Impressions: Chronic anemia Elevated troponin Bilateral pleural effusion CHF (congestive heart failure) Hypomagnesemia Hypoalbuminemia Disposition: ADMITTED INPATIENT (at 1805) Admitting Physician: Camden Duffy (accepted admission at 1801) Condition: GUARDED Referrals: CAMDEN DUFFY MD (PCP) Critical Care Time Critical care time was 70 minutes exclusive of procedures. Problem Qualifiers Additional Impressions: CHF (congestive heart failure) Heart failure type: unspecified Heart failure chronicity: unspecified Qualified Codes: I50.9 - Heart failure, unspecified JASON REGAN MD May 28, 2019 18:06
[2019-05-28] MEDS ORDERED: MAGNESIUM SULFATE 2GM 50 ML IV ONE (18:15)
[2019-05-28 18:30] LABS: DIG < 0.2 ng/mL (0.9-2.0)
[2019-05-28] MEDS ORDERED: IPRATRPIUM/ALBUTEROL 0.5/2.5MG 3 ML NEBU. NEB PRN (19:45)
[2019-05-28] MEDS ORDERED: POTASSIUM CHLORIDE 20 MEQ TABLET.ER. PO ONE (19:45)
[2019-05-28] MEDS: ATORVASTATIN CALCIUM 40 MG TABLET. PO SCH (21:38)
[2019-05-28] MEDS: GABAPENTIN 300 MG CAPSULE. PO SCH (21:38)
[2019-05-29] VITALS (39 sets, daily range): BP systolic 84–151; BP diastolic 54–111
[2019-05-29] MEDS ORDERED: dilTIAZem INJ 125 MG in IV DEXTROSE 5% 100ML 100 ML IV PRN (00:30)
[2019-05-29] MEDS ORDERED: ALBUTEROL SULFATE 2.5 MG/3 ML NEBU. NEB PRN (00:30)
[2019-05-29 04:59] LABS: CHOLESTEROL/HDL RATIO 4.8
--- NOTE | 2019-05-29 07:08 | EKG ---
[facility] [address] [place] [address] Test Date: 2019-05-28 Test Time: 16:56:16 Pat Name: INGE PEARL Department: Room: Gender: M [place]: : 1955 Requested By: JASON REGAN Order Number: [id number] Reading MD: Measurements Intervals [place] Rate: 168 P: [place]: QRS: 38 QRSD: 86 T: -34 QT: 286 QTc: 485 Interpretive Statements IRREGULAR RHYTHM, NO P-WAVE FOUND LOW LIMB LEAD VOLTAGE QRS(T) CONTOUR ABNORMALITY CONSISTENT WITH ANTEROSEPTAL INFARCT AGE UNDETERMINED ABNORMAL ECG RI6.01 No previous ECG available for comparison
--- NOTE | 2019-05-29 07:08 | EKG ---
[facility] [address] [place] [address] Test Date: 2019-05-28 Test Time: 17:51:42 Pat Name: INGE PEARL Department: Room: Gender: M [place]: : 1955 Requested By: JASON REGAN Order Number: [id number] Reading MD: Measurements Intervals [place] Rate: 122 P: [place]: QRS: 24 QRSD: 86 T: -19 QT: 342 QTc: 489 Interpretive Statements IRREGULAR RHYTHM, NO P-WAVE FOUND LOW LIMB LEAD VOLTAGE QRS(T) CONTOUR ABNORMALITY CONSISTENT WITH ANTEROSEPTAL INFARCT AGE UNDETERMINED CONSIDER INFERIOR MYOCARDIAL DAMAGE ABNORMAL ECG RI6.01 No previous ECG available for comparison
[2019-05-29] MEDS ORDERED: ASPIRIN ENTERIC COATED 81 MG TABLET.DR. PO SCH (08:00)
[2019-05-29] MEDS ORDERED: FLU VAX QS 2019-20 (36MOS+)/PF 0.5 ML SYRINGE. VAX IM ONE (09:00)
[2019-05-29] MEDS ORDERED: POTASSIUM CHLORIDE 20 MEQ TABLET.ER. PO ONE (09:00)
[2019-05-29] MEDS ORDERED: HEPARIN for IV BOLUS 10,000 UNIT/10 ML VIAL. IV PRN (09:30)
[2019-05-29] MEDS ORDERED: HEPARIN 25,000UTS/500ML PREMIX 500 ML IV PRN (09:30)
--- NOTE | 2019-05-29 09:34 | PDOC2 ---
ROBIN TUCKER FORENSIC LOCKSMITH 05/29/19 0934: CARDIAC CONSULT DATE OF CONSULT Date of Consult DATE: 05/29/19 TIME: 08:58 REASON FOR CONSULT Reason for Consult: AFIB RVR, elevated trop REFERRING PHYSICIAN Referring Physician: Lamin SOURCE Source: Chart review, Patient HISTORY OF PRESENT ILLNESS HISTORY OF PRESENT ILLNESS This is a pleasant 63 yo male admitted for complains of not feeling well. Reports that in the last 3 days he has been having nausea and actually vomited the other day. Positive for indigestion. Also his BP has been low and he was told to stop his metoprolol. More SOA lately despite using 3L O2. Also having left arm discomfort same pain he had when his stent was placed in the past. Positive for frequent dizziness and exertional dyspnea is worse. Has been having intermittent chest tightness. He still drink 1 to 2 shots of whiskey daily. No recent falls, injury. He is on coumadin and verbalized complaince but his INR has been 1.1 No orthopnea or PND. He has been referred to see EP for possible ablation and his appointment is mid May. and not sure who is the physician. PAST MEDICAL HISTORY Past Medical History Cardiovascular: AFIB with past cardioversion, CAD, HTN, Hyperlipidemia, orthostasis, syncope, ascending aorta dilatation recent at 4 cm Pulmonary: COPD, DACIA Neuro: peripheral neuropathy GI: GERD Heme/Onc: Anemia NOS Hepatobiliary: Hep A Psych: Depression Musculoskeletal: Osteoarthritis Infectious disease: No pertinent hx Renal/: nephrolithiasis Endocrine: No pertinent hx PAST SURGICAL HISTORY Past Surgical History Appendectomy, Colon Resection, Other (coronary stents) FAMILY HISTORY Family History Coronary Artery Disease, Hypertension SOCIAL HISTORY Smoke: Quit ALCOHOL: other (1-2 shots daily whiskey) Drugs: None Lives: with Family CURRENT MEDICATIONS CURRENT MEDICATIONS Current Medications Medications (Trade) Dose Ordered Sig/Meredith Route PRN Reason Start Time Stop Time Status Last Admin Dose Admin Diltiazem HCl (Cardizem Iv Push) 20 mg 1X ONCE IVP 05/28/19 17:00 05/28/19 17:04 DC 05/28/19 17:24 Diltiazem HCl 125 mg/Dextrose 125 ml @ 10 mls/hr 1X ONCE IV 05/28/19 17:00 05/29/19 05:30 DC 05/28/19 17:24 Magnesium Sulfate 50 ml @ 25 mls/hr 1X ONCE IV 05/28/19 18:15 05/28/19 20:14 DC 05/28/19 18:33 Potassium Chloride (Klor-Con) 40 meq 1X ONCE PO 05/28/19 19:45 05/28/19 19:53 DC 05/28/19 19:56 Atorvastatin Calcium (Lipitor) 40 mg QHS PO 05/28/19 22:00 05/28/19 21:38 Gabapentin (Neurontin) 300 mg TID PO 05/28/19 22:00 05/28/19 21:38 Warfarin Sodium (Coumadin Per Physician) 1 each PRN DAILY PRN MC SEE COMMENTS 05/28/19 21:45 05/29/19 00:21 Diltiazem HCl 125 mg/Dextrose 125 ml @ 5 mls/hr CONT PRN IV SEE I/O RECORD 05/29/19 00:30 05/29/19 00:42 ALLERGIES ALLERGIES: Coded Allergies: No Known Drug Allergies (Unverified , 05/09/18) ROS Review of System 14 point ROS evaluated with pertinent positives noted per HPI PHYSICAL EXAM General: Alert, Oriented X3, Cooperative, No acute distress HEENT: Atraumatic, Mucous membr. moist/pink Lungs: Other (diminished) Heart: Other (AFIB) Abdomen: Soft, No tenderness, Other (truncal obesity) Extremities: No cyanosis, Other (trace LE edema) Skin: No breakdown, No significant lesion Neuro: Normal speech, Sensation intact Psych/Mental Status: Mental status NL, Mood NL MUSCULOSKELETAL: Osteoarthritic changes both hands VITALS/I&O VITALS/I&O: Vital Signs Date Time Temp Pulse Resp B/P (MAP) Pulse Ox O2 Delivery O2 Flow Rate FiO2 05/29/19 07:00 97.4 88 118/72 (87) 99 Nasal Cannula 5.0 97.4 05/28/19 23:06 20 I & O 05/28/19 05/28/19 05/29/19 15:00 23:00 07:00 Intake Total 340 ml 60 ml Output Total 150 ml Balance 340 ml -90 ml LABS Lab: Laboratory Tests Test 05/28/19 17:10 05/28/19 22:29 05/29/19 00:00 White Blood Count 8.2 x10^3/uL (4.0-11.0) Red Blood Count 3.15 x10^6/uL (4.30-5.70) L Hemoglobin 11.2 g/dL (13.0-17.5) L Hematocrit 34.7 % (39.0-53.0) L Mean Corpuscular Volume 110 fL (79-100) H Mean Corpuscular Hemoglobin 36 pg (25-35) H Mean Corpuscular Hemoglobin Concent 32 g/dL (31-37) Red Cell Distribution Width 17.3 % (11.5-14.5) H Platelet Count 424 x10^3/uL (140-400) H Neutrophils (%) (Auto) 83 % (31-73) H Lymphocytes (%) (Auto) 9 % (24-48) L Monocytes (%) (Auto) 7 % (0-9) Eosinophils (%) (Auto) 1 % (0-3) Basophils (%) (Auto) 1 % (0-3) Neutrophils # (Auto) 6.8 x10^3/uL (1.8-7.7) Lymphocytes # (Auto) 0.7 x10^3/uL (1.0-4.8) L Monocytes # (Auto) 0.6 x10^3/uL (0.0-1.1) Eosinophils # (Auto) 0.0 x10^3/uL (0.0-0.7) Basophils # (Auto) 0.0 x10^3/uL (0.0-0.2) Platelet Estimate Increased (ADEQUATE) Giant Platelets Occ Polychromasia Slight Anisocytosis Slight Macrocytosis Mod Prothrombin Time 14.0 SEC (11.7-14.0) Prothrombin Time INR 1.1 (0.8-1.1) Sodium Level 142 mmol/L (136-145) Potassium Level 3.1 mmol/L (3.5-5.1) L Chloride Level 98 mmol/L (98-107) Carbon Dioxide Level 30 mmol/L (21-32) Anion Gap 14 (6-14) Blood Urea Nitrogen 9 mg/dL (8-26) Creatinine 1.2 mg/dL (0.7-1.3) Estimated GFR (Cockcroft-Gault) 61.3 BUN/Creatinine Ratio 8 (6-20) Glucose Level 112 mg/dL (70-99) H Calcium Level 8.5 mg/dL (8.5-10.1) Magnesium Level 1.4 mg/dL (1.8-2.4) L Total Bilirubin 0.8 mg/dL (0.2-1.0) Aspartate Amino Transferase (AST) 30 U/L (15-37) Alanine Aminotransferase (ALT) 20 U/L (16-63) Alkaline Phosphatase 134 U/L (46-116) H Creatine Kinase 53 U/L (39-308) Troponin I Quantitative 0.398 ng/mL (0.000-0.055) 0.425 ng/mL (0.000-0.055) ET-Awc-V-Type Natriuretic Peptide 1748 pg/mL (0-124) H Total Protein 6.4 g/dL (6.4-8.2) Albumin 2.7 g/dL (3.4-5.0) L Albumin/Globulin Ratio 0.7 (1.0-1.7) L Lipase 116 U/L (73-393) Thyroid Stimulating Hormone (TSH) 3.711 uIU/mL (0.358-3.74) Digoxin Level < 0.2 ng/mL (0.9-2.0) L Digoxin Last Dose Date Digoxin Last Dose Time Triglycerides Level 190 mg/dL (0-150) H Cholesterol Level 140 mg/dL (0-200) LDL Cholesterol, Calculated 73 mg/dL (0-100) VLDL Cholesterol, Calculated 38 mg/dL (0-40) Non-HDL Cholesterol Calculated 111 mg/dL (0-129) HDL Cholesterol 29 mg/dL (40-60) L Cholesterol/HDL Ratio 4.8 Laboratory Tests 05/28/19 17:10 Laboratory Tests 05/28/19 17:10 ECHOCARDIOGRAM ECHOCARDIOGRAM <Conclusion> The left ventricular systolic function is normal. The Ejection Fraction is 55-60%. There is normal LV segmental wall motion. Mild mitral regurgitation. Mild tricuspid regurgitation. There is moderate pulmonary hypertension. The PA pressure was estimated at 44 mmHg. The ascending aorta is moderately dilated at 4.0 cm. There is no evidence of significant pericardial effusion. DATE: 01/16/19 0950 ASSESSMENT/PLAN ASSESSMENT/PLAN 1. NSTEMI: with typical features 2. AFIB RVR: chronic per hx now rate controlled with cardizem. He has been referred to EP 3. Hypotension: likely from RVR. now controlled 4. COPD: O2 dependent 5. CAD; past stent 6. Hx of HTN 7. HLP 8. Macrocytosis 9. Possible ETOH abuse 10. DACIA: CPAP intolerant 11. Hypokalemia/hypomagnesemia 12. Acute on chronic diastolic CHF Recommendations 1. LHC today, risks and benefits discussed and agreeable to proceed. 2. Heparin drip. Will restart coumadin post LHC may need to transition to NOAC if pt is able to afford. INR at 1.1 3. Discussed stopping or decreasing ETOH consumption. 4. ASA. Replace K and Mg. 5. Stop cardizem drip and start on metoprolol. If BP remains low with the latter then will use Digoxin for rate control. Continue statin. TANIKA SUMNER MD 05/29/19 1789: CARDIAC CONSULT ASSESSMENT/PLAN ASSESSMENT/PLAN Patient seen and examined. Agree with above nurse practitioner note. 63-year-old man well-known to us with poor medication compliance Left heart catheter today revealed mild diastolic heart failure without any new critical stenoses. Supportive care for now. Continue aggressive treatment of his COPD His PCP has referred him for a consideration of A. fib ablation in the future through the [facility] service. ROBIN TUCKER APRN May 29, 2019 09:34 TANIKA SUMNER MD May 29, 2019 17:07
--- NOTE | 2019-05-29 09:38 | HP ---
ADMIT DATE: 05/28/2019 CHIEF COMPLAINT AND HISTORY OF PRESENT ILLNESS: This 63-year-old white male is well known to me from followup in the office. The patient presented to the Emergency Room on the day of admission with chest and left arm pain with associated shortness of breath and lightheadedness. He was found to be in atrial fibrillation with a rapid ventricular response and admitted, on a Cardizem drip. He did have an elevation of troponin on admission in addition. Recently, the patient has been seen in the office with orthostasis and I believe his metoprolol was held. He, however, has been holding his digoxin in addition and apparently according to him, not taking his Coumadin regularly as his INR was nontherapeutic on admission. PAST MEDICAL HISTORY: Remarkable for coronary artery disease with prior NH, CABG, atrial fibrillation, COPD, pulmonary hypertension, hyperlipidemia, hypertension, colon polyps, neuropathy. PAST SURGICAL HISTORY: Remarkable for appendectomy, 4 cardiac stents, colon resection. MEDICATIONS: Brought with the patient, listed on the computer and have been addressed. ALLERGIES: He has no known drug allergies. SOCIAL HISTORY: He is retired, lives at home with his , nonsmoker, nondrinker, does not use drugs. FAMILY HISTORY: Noncontributory. REVIEW OF SYSTEMS: As mentioned above. PHYSICAL EXAMINATION: GENERAL: He is a well-developed, well-nourished white male in no acute distress at the time of my examination. VITAL SIGNS: Stable. He is afebrile. He is in AFib with a controlled rate of around 100 at the time of my examination. HEAD, EYES, EARS, NOSE AND THROAT: Unremarkable. NECK: Supple without adenopathy or thyromegaly. CHEST: Reveals decreased breath sounds at the bases. HEART: Irregularly irregular with a rate of 100. ABDOMEN: Soft, nontender, without hepatosplenomegaly or masses. EXTREMITIES: Without cyanosis or clubbing. He has 1+ edema. NEUROLOGIC: Intact. LABORATORY DATA: Initial laboratory is remarkable for a digoxin level less than 0.2. Chemistry panel and lipid panel showing an elevated troponin, elevated BNP, normal lipids, potassium of 3.1, albumin of 2.7. INR is subtherapeutic with an INR of 1.1. CBC is mostly unremarkable. Chest x-ray on admission shows small bilateral pleural effusions with some interstitial thickening and vascular engorgement, most consistent with pulmonary edema as well as cardiomegaly. IMPRESSION: Atrial fibrillation with rapid ventricular response and symptomatology related to the same with elevated troponin. Congestive heart failure with bilateral pleural effusions, hyponatremia, hypoalbuminemia. PLAN: The patient has been admitted. He is on a Cardizem drip. Cardiology has been asked to see him in consultation. 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 CAMDEN FISHER MD DR: MAGEN/guillaume JOB#: [id number] / [id number]
[2019-05-29] MEDS: GABAPENTIN 300 MG CAPSULE. PO SCH ×3 (09:40→20:32)
[2019-05-29] MEDS ORDERED: METOPROLOL TART IMMED RELEASE 25 MG TABLET. PO ONE (09:45)
[2019-05-29] MEDS ORDERED: ASPIRIN ENTERIC COATED 325 MG TABLET.DR. PO ONE (10:00)
[2019-05-29 10:03] LABS: CALCIUM 8.2 mg/dL (8.5-10.1); GFR 75.7; MAGNESIUM 1.8 mg/dL (1.8-2.4); POTASSIUM 4.4 mmol/L (3.5-5.1)
[2019-05-29] MEDS ORDERED: HEPARIN for ARTERIAL LINE 1,500 ML ONE (10:44)
[2019-05-29] MEDS ORDERED: LIDOCAINE 1% PF 2 ML VIAL. ONE (10:45)
[2019-05-29] MEDS ORDERED: IOHEXOL 300 MG/ML 100ML VIAL. ONE (10:45)
[2019-05-29] MEDS ORDERED: fentaNYL PF VIAL 100 MCG/2 ML VIAL ONE (11:30)
[2019-05-29] MEDS ORDERED: NITROGLYCERIN 200 MCG/2 ML SYRINGE FOR CATH/VASC LAB. ONE ×2 (11:31→12:03)
[2019-05-29] MEDS ORDERED: VERAPAMIL 5 MG/2 ML VIAL. ONE (11:31)
[2019-05-29] MEDS ORDERED: MIDAZOLAM HCL/PF 2 MG/2 ML VIAL. ONE (11:31)
[2019-05-29] MEDS ORDERED: HEPARIN for IV BOLUS 10,000 UNIT/10 ML VIAL. ONE (11:31)
[2019-05-29] MEDS ORDERED: MIDAZOLAM HCL/PF 2 MG/2 ML VIAL. IV ONE (11:45)
[2019-05-29] MEDS ORDERED: LIDOCAINE 1% PF 2 ML VIAL. INJ ONE (11:45)
[2019-05-29] MEDS ORDERED: NITROGLYCERIN 200 MCG/2 ML SYRINGE FOR CATH/VASC LAB. IART ONE (11:45)
[2019-05-29] MEDS ORDERED: IOHEXOL 300 MG/ML 100ML VIAL. IART ONE (11:45)
[2019-05-29] MEDS ORDERED: fentaNYL PF VIAL 100 MCG/2 ML VIAL IV ONE (11:45)
[2019-05-29] MEDS ORDERED: HEPARIN for IV BOLUS 10,000 UNIT/10 ML VIAL. IART ONE (11:45)
[2019-05-29] MEDS ORDERED: VERAPAMIL 5 MG/2 ML VIAL. IART ONE (11:45)
[2019-05-29] MEDS ORDERED: HEPARIN for IV BOLUS 10,000 UNIT/10 ML VIAL. IV ONE (12:00)
--- NOTE | 2019-05-29 12:28 | NUR ---
SS following for discharge planning. SS reviewed pt chart. Pt is from home with spouse and is currently requiring oxygen. Pt reports having oxygen at home. SS will continue to follow for discharge planning.
--- NOTE | 2019-05-29 13:47 | CARD ---
MR#: [id number] Date of Study: 05/29/2019 Ordering Physician: ROBIN TUCKER, Referring Physician: ROBIN TUCKER, Tech: RT More (R) ADELSO APPROVED REPORT Technologist: Estrella Antonio RT (R) Nurse: Briana Seaman Procedure(s) performed: Flouro Time: 5.9 min Dose: 100.4 Gycm2 Contrast: 102 Omnipaque 300 Moderate Sedation: 40 MIN LHC, Coronary angiography iFR of the RCA HISTORY The patient is a 63 year-old male with a history of : diabetes mellitus with treatment, coronary tangela ry disease, tobacco history() , hypertension, dyslipidemia. INDICATION The indication(s) include : non-STEMI , atrial fibrillation, dyspnea. [facility] Clinical Frailty Scale [facility] Clinical Frailty Scale: Severely Frail Heart Failure Heart Failure: Yes If Yes, Newly Diagnosed: No If Yes, HF Type: Diastolic If Yes, NYHA Class: Class III PROCEDURE NARRATIVE INFORMED CONSENT: After explaining the risks and benefits of the procedure and alternatives, informed consent was obtained. The patient was brought electively to the cardiac catheterization lab. A timeout was performed confi rming the patient's name, date of , procedure, and site of procedure. All necessary personnel w ere wearing the appropriate protective equipment and radiation monitor devices. (See nursing notes for medications administered). ACCESS: The right wrist was sterilely prepped and draped in the usual fashion. The right wrist was infiltrat ed with 1 mL of 2% lidocaine for subcutaneous anesthesia. A 6 Mongolian Terumo glide sheath was inserte d into the right radial artery without difficulty. CORONARY ANGIOGRAPHY: Right and left coronary angiography was performed using a 6Fr TIG 4.0 catheter. Left ventricular en d diastolic pressure was obtained with a pigtail catheter and pullback was performed after left ventr iculography. All catheter exchanges and advancements were performed over a guidewire. FINDINGS: HEMODYNAMICS: LVEDP 22 mm Hg No gradient on LV to aortic pullback. AO: 128/78 LEFT VENTRICULOGRAM: Deferred due to CKD CORONARY ANGIOGRAPHY: LM is a large caliber vessel with normal angiographic appearance. LAD is a large caliber dominant vessel with a patent proximal stent. LCx is a moderate caliber non-dominant vessel with mild luminal irregularities. OM1 is a small caliber vessel with normal angiographic appearance. OM2 is a moderate caliber vessel with normal angiographic appearance. RCA is a large caliber dominant vessel with proximal and mid 50% stenoses and a patent distal stent. RPDA and RPL are small to moderate caliber vessels with normal angiographic appearance. INTERVENTIONAL TECHNIQUE: iFR of the RCA Based on moderate RCA disease, a physiologic study was performed. Heparin was used for anticoagulatio n. Through a 6Fr JR4 guide catheter, a 0.014'' Pressure wire was advanced to the distal RCA after all ropriate normalization in the aorta. Intracoronary NTG was also administered. The iFR study was negat keri. Further intervention was then deferred. CLOSURE: At case completion the right radial sheath was removed and a Terumo radial band was applied with 13 m l of air. COMPLICATIONS: The patient tolerated the procedure well and there were no immediate complications. Conclusion 1. Acute on chronic diastolic and systolic HF. LVEDP 22 mm Hg 2. Three vessel coronary disease without critical stenosis 3. 2/2 stents patent. Recommendations Aggressive medical therapy Discussed with Dr. Lares Signed by : Demetrio Meadows, Electronically Approved : 05/29/2019 13:46:27
--- NOTE | 2019-05-29 14:13 | PDOC ---
PULMONARY PROGRESS NOTES Vitals Vital Signs Date Time Temp Pulse Resp B/P (MAP) Pulse Ox O2 Delivery O2 Flow Rate FiO2 05/29/19 12:20 92 21 90 Nasal Cannula 5.0 05/29/19 11:00 84/59 (67) 05/29/19 07:00 97.4 97.4 General: Alert Lungs: Wheezing, Other Cardiovascular: S1, S2 Abdomen: Soft, Non-tender Extremities: No Edema Labs Laboratory Tests Test 05/28/19 17:10 05/28/19 22:29 05/29/19 00:00 05/29/19 09:35 White Blood Count 8.2 x10^3/uL (4.0-11.0) Red Blood Count 3.15 x10^6/uL (4.30-5.70) Hemoglobin 11.2 g/dL (13.0-17.5) Hematocrit 34.7 % (39.0-53.0) Mean Corpuscular Volume 110 fL (79-100) Mean Corpuscular Hemoglobin 36 pg (25-35) Mean Corpuscular Hemoglobin Concent 32 g/dL (31-37) Red Cell Distribution Width 17.3 % (11.5-14.5) Platelet Count 424 x10^3/uL (140-400) Neutrophils (%) (Auto) 83 % (31-73) Lymphocytes (%) (Auto) 9 % (24-48) Monocytes (%) (Auto) 7 % (0-9) Eosinophils (%) (Auto) 1 % (0-3) Basophils (%) (Auto) 1 % (0-3) Neutrophils # (Auto) 6.8 x10^3/uL (1.8-7.7) Lymphocytes # (Auto) 0.7 x10^3/uL (1.0-4.8) Monocytes # (Auto) 0.6 x10^3/uL (0.0-1.1) Eosinophils # (Auto) 0.0 x10^3/uL (0.0-0.7) Basophils # (Auto) 0.0 x10^3/uL (0.0-0.2) Platelet Estimate Increased (ADEQUATE) Giant Platelets Occ Polychromasia Slight Anisocytosis Slight Macrocytosis Mod Prothrombin Time 14.0 SEC (11.7-14.0) Prothromb Time International Ratio 1.1 (0.8-1.1) Sodium Level 142 mmol/L (136-145) 144 mmol/L (136-145) Potassium Level 3.1 mmol/L (3.5-5.1) 4.4 mmol/L (3.5-5.1) Chloride Level 98 mmol/L (98-107) 101 mmol/L (98-107) Carbon Dioxide Level 30 mmol/L (21-32) 37 mmol/L (21-32) Anion Gap 14 (6-14) 6 (6-14) Blood Urea Nitrogen 9 mg/dL (8-26) 9 mg/dL (8-26) Creatinine 1.2 mg/dL (0.7-1.3) 1.0 mg/dL (0.7-1.3) Estimated GFR (Cockcroft-Gault) 61.3 75.7 BUN/Creatinine Ratio 8 (6-20) Glucose Level 112 mg/dL (70-99) 106 mg/dL (70-99) Calcium Level 8.5 mg/dL (8.5-10.1) 8.2 mg/dL (8.5-10.1) Magnesium Level 1.4 mg/dL (1.8-2.4) 1.8 mg/dL (1.8-2.4) Total Bilirubin 0.8 mg/dL (0.2-1.0) Aspartate Amino Transf (AST/SGOT) 30 U/L (15-37) Alanine Aminotransferase (ALT/SGPT) 20 U/L (16-63) Alkaline Phosphatase 134 U/L (46-116) Creatine Kinase 53 U/L (39-308) Troponin I Quantitative 0.398 ng/mL (0.000-0.055) 0.425 ng/mL (0.000-0.055) 0.348 ng/mL (0.000-0.055) YP-Ldj-D-Type Natriuretic Peptide 1748 pg/mL (0-124) Total Protein 6.4 g/dL (6.4-8.2) Albumin 2.7 g/dL (3.4-5.0) Albumin/Globulin Ratio 0.7 (1.0-1.7) Lipase 116 U/L (73-393) Thyroid Stimulating Hormone (TSH) 3.711 uIU/mL (0.358-3.74) Digoxin Level < 0.2 ng/mL (0.9-2.0) Digoxin Last Dose Date Digoxin Last Dose Time Triglycerides Level 190 mg/dL (0-150) Cholesterol Level 140 mg/dL (0-200) LDL Cholesterol, Calculated 73 mg/dL (0-100) VLDL Cholesterol, Calculated 38 mg/dL (0-40) Non-HDL Cholesterol Calculated 111 mg/dL (0-129) HDL Cholesterol 29 mg/dL (40-60) Cholesterol/HDL Ratio 4.8 Laboratory Tests Test 05/28/19 17:10 05/28/19 22:29 05/29/19 00:00 05/29/19 09:35 White Blood Count 8.2 x10^3/uL (4.0-11.0) Red Blood Count 3.15 x10^6/uL (4.30-5.70) Hemoglobin 11.2 g/dL (13.0-17.5) Hematocrit 34.7 % (39.0-53.0) Mean Corpuscular Volume 110 fL (79-100) Mean Corpuscular Hemoglobin 36 pg (25-35) Mean Corpuscular Hemoglobin Concent 32 g/dL (31-37) Red Cell Distribution Width 17.3 % (11.5-14.5) Platelet Count 424 x10^3/uL (140-400) Neutrophils (%) (Auto) 83 % (31-73) Lymphocytes (%) (Auto) 9 % (24-48) Monocytes (%) (Auto) 7 % (0-9) Eosinophils (%) (Auto) 1 % (0-3) Basophils (%) (Auto) 1 % (0-3) Neutrophils # (Auto) 6.8 x10^3/uL (1.8-7.7) Lymphocytes # (Auto) 0.7 x10^3/uL (1.0-4.8) Monocytes # (Auto) 0.6 x10^3/uL (0.0-1.1) Eosinophils # (Auto) 0.0 x10^3/uL (0.0-0.7) Basophils # (Auto) 0.0 x10^3/uL (0.0-0.2) Platelet Estimate Increased (ADEQUATE) Giant Platelets Occ Polychromasia Slight Anisocytosis Slight Macrocytosis Mod Prothrombin Time 14.0 SEC (11.7-14.0) Prothromb Time International Ratio 1.1 (0.8-1.1) Sodium Level 142 mmol/L (136-145) 144 mmol/L (136-145) Potassium Level 3.1 mmol/L (3.5-5.1) 4.4 mmol/L (3.5-5.1) Chloride Level 98 mmol/L (98-107) 101 mmol/L (98-107) Carbon Dioxide Level 30 mmol/L (21-32) 37 mmol/L (21-32) Anion Gap 14 (6-14) 6 (6-14) Blood Urea Nitrogen 9 mg/dL (8-26) 9 mg/dL (8-26) Creatinine 1.2 mg/dL (0.7-1.3) 1.0 mg/dL (0.7-1.3) Estimated GFR (Cockcroft-Gault) 61.3 75.7 BUN/Creatinine Ratio 8 (6-20) Glucose Level 112 mg/dL (70-99) 106 mg/dL (70-99) Calcium Level 8.5 mg/dL (8.5-10.1) 8.2 mg/dL (8.5-10.1) Magnesium Level 1.4 mg/dL (1.8-2.4) 1.8 mg/dL (1.8-2.4) Total Bilirubin 0.8 mg/dL (0.2-1.0) Aspartate Amino Transf (AST/SGOT) 30 U/L (15-37) Alanine Aminotransferase (ALT/SGPT) 20 U/L (16-63) Alkaline Phosphatase 134 U/L (46-116) Creatine Kinase 53 U/L (39-308) Troponin I Quantitative 0.398 ng/mL (0.000-0.055) 0.425 ng/mL (0.000-0.055) 0.348 ng/mL (0.000-0.055) XZ-Gmv-O-Type Natriuretic Peptide 1748 pg/mL (0-124) Total Protein 6.4 g/dL (6.4-8.2) Albumin 2.7 g/dL (3.4-5.0) Albumin/Globulin Ratio 0.7 (1.0-1.7) Lipase 116 U/L (73-393) Thyroid Stimulating Hormone (TSH) 3.711 uIU/mL (0.358-3.74) Digoxin Level < 0.2 ng/mL (0.9-2.0) Digoxin Last Dose Date Digoxin Last Dose Time Triglycerides Level 190 mg/dL (0-150) Cholesterol Level 140 mg/dL (0-200) LDL Cholesterol, Calculated 73 mg/dL (0-100) VLDL Cholesterol, Calculated 38 mg/dL (0-40) Non-HDL Cholesterol Calculated 111 mg/dL (0-129) HDL Cholesterol 29 mg/dL (40-60) Cholesterol/HDL Ratio 4.8 Medications Active Scripts Medications Dose Route/Sig Max Daily Dose Days Date Category Aspirin Ec (Aspirin) 81 Mg Tablet.dr 81 Mg PO DAILYWBKFT 90 01/19/19 Rx Atorvastatin Calcium 40 Mg Tablet 1 Tab PO QHS 01/15/19 Reported Gabapentin (Gabapentin) 300 Mg Capsule 300 Mg PO TID 03/15/18 Reported Warfarin Sodium 5 Mg Tablet 1 Tab PO DAILY 01/27/16 Reported Impression . FULL NOTE DICTATED A/C DIASTOLIC HF CAD/ NEG CATH AECOPD WEAKNESS/DECONDITONING AGREE WITH CURRENT RX WOULD BENIFIT FROM ACUTE REHAB BORIS VINCENT MD May 29, 2019 14:13
[2019-05-29] MEDS: WARFARIN 5 MG TABLET. PO SCH (15:42)
[2019-05-29] MEDS: DIGOXIN 125 MCG TABLET. PO SCH (15:43)
--- NOTE | 2019-05-29 18:06 | CONS ---
DATE OF CONSULTATION: 05/29/2019 ATTENDING PHYSICIAN: Dr. Duffy. REASON FOR CONSULTATION: The patient seen in pulmonary consultation at the request of Dr. Duffy for increasing shortness of air, abnormal x-ray revealing evidence of small bilateral effusions, increased interstitial marking and cardiomegaly. HISTORY OF PRESENT ILLNESS: The patient is well known to me from previous hospitalization. He is a 63-year-old with multiple comorbidities including prior coronary artery disease with prior myocardial infarction, status post coronary artery bypass grafting, AFib, COPD, secondary pulmonary hypertension, hyperlipidemia and obesity with a BMI of 34 that presented to the Emergency Room with increasing shortness of air. In addition, he had left-sided chest discomfort. He states this felt like his previous myocardial infarction. The patient was found to have AFib with rapid ventricular response in the Emergency Department. He also had periods of desaturation. He was admitted. I was asked to see him in consultation. Since his admission, he underwent a cardiac catheterization for AFib and non-ST segment elevation MO. The cardiac catheterization revealed acute on chronic diastolic heart failure with a left ventricular end-diastolic pressure of 22. He had 3-vessel coronary artery disease without critical stenosis. He had added 2 patent stents that were patent. It was recommended that he undergo aggressive medical treatment. PAST MEDICAL HISTORY: Otherwise remarkable for coronary artery disease, previous myocardial infarction, chronic AFib, COPD, secondary pulmonary hypertension, hyperlipidemia, colon polyps, neuropathy. He has had previous thoracentesis back in 12/2018. At that time, he had 700 mL of pleural fluid removed. SOCIAL HISTORY: He quit tobacco approximately 6 months ago. FAMILY HISTORY: Mother with emphysema. ALLERGIES: No known drug allergies. REVIEW OF SYSTEMS: As indicated above, otherwise a 10-point system was reviewed and negative. CONSTITUTIONAL: No fever or chills. EYES: No change in visual acuity. HENT: No nasal congestion or sore throat. PULMONARY: As indicated above. CARDIOVASCULAR: As indicated above. GASTROINTESTINAL: No nausea, vomiting, diarrhea. GENITOURINARY: No dysuria or frequency. MUSCULOSKELETAL: No localized muscle aches or joint pains. SKIN: No new skin rashes. NEUROLOGIC: No headaches, diplopia or blurred vision. PHYSICAL EXAMINATION: GENERAL: Morbid obese individual with a BMI of 35, O2 saturation currently on 3 liters at 94%. HEENT: Eyes, the sclerae were nonicteric. NECK: Jugular venous distention could not be assessed secondary to body habitus. CHEST: Full expansion. LUNGS: Diminished breath sounds in the bases, otherwise adequate airway flow. CARDIOVASCULAR: Irregularly irregular rate and rhythm with S1, S2, no S3. ABDOMEN: Obese. EXTREMITIES: A 1+ edema. NEUROLOGICAL: The patient was awake, alert, following commands. A detailed neuro exam was not performed. LABORATORY DATA: Reviewed. White count was 8.2, hemoglobin and hematocrit were noted. INR was 1.1. Electrolytes were noted. BUN was normal. Creatinine was normal. Troponin was elevated. IMPRESSION: 1. Acute hypoxemic respiratory failure. 2. Acute non-ST segment elevation myocardial infarction. 3. Coronary artery disease with previous coronary artery bypass grafting and previous stenting, status post cardiac catheterization revealing no critical stenosis. 4. Acute exacerbation of chronic obstructive pulmonary disease. 5. Morbid obesity. 6. Bilateral pleural effusions, previous thoracentesis in December, removed a total of 700 mL. 7. Hyperlipidemia. 8. Hypertension. 9. Tobacco dependence, in remission. 10. Atrial fibrillation with rapid ventricular response. PLAN: Suspect most of the patient's symptoms are related to acute cor pulmonale, in addition to deconditioning and generalized weakness. RECOMMENDATION: 1. Diuresis. 2. ____ nebulized treatments. 3. Consider the possibility of transferring to acute rehab once he is compensated. 4. Follow Cardiology input. Dr. Duffy, I do appreciate the privilege in sharing in the patient's care. BORIS VINCENT MD DR: NAVNEET/guillaume JOB#: [id number] / [id number]
[2019-05-29] MEDS: ATORVASTATIN CALCIUM 40 MG TABLET. PO SCH (20:32)
[2019-05-30] VITALS (7 sets, daily range): BP systolic 112–181; BP diastolic 69–107
[2019-05-30 04:04] LABS: CALCIUM 8.3 mg/dL (8.5-10.1); GFR 75.7; POTASSIUM 4.1 mmol/L (3.5-5.1)
[2019-05-30] MEDS: DIGOXIN 125 MCG TABLET. PO SCH (07:42)
[2019-05-30] MEDS: GABAPENTIN 300 MG CAPSULE. PO SCH ×3 (07:43→20:22)
--- NOTE | 2019-05-30 07:49 | PDOC ---
GENERAL General: vss and afebrile. remains in a-fib with controlled rate. on digoxin. awake and alert. chest decreased breath sounds, heart irregular rate 100, abdomen benign, trace edema. cath noted. cardiology planning cardioversion today. hopefully dc later today. VITAL SIGNS/I&O Vital Signs/I&O: Vital Signs Date Time Temp Pulse Resp B/P (MAP) Pulse Ox O2 Delivery O2 Flow Rate FiO2 05/30/19 07:42 101 135/89 05/30/19 03:00 97.4 18 91 97.4 05/29/19 15:00 Nasal Cannula 5.0 I & O 05/29/19 05/29/19 05/30/19 15:00 23:00 07:00 Intake Total 40 ml 240 ml 120 ml Balance 40 ml 240 ml 120 ml ALLERGIES Allergies: Allergies Coded Allergies Type Severity Reaction Last Updated Verified No Known Drug Allergies 05/09/18 No MEDS Medications: Current Medications Medications (Trade) Dose Ordered Sig/Meredith Route PRN Reason Start Time Stop Time Status Last Admin Dose Admin Warfarin Sodium (Coumadin) 5 mg DAILY16 PO 05/29/19 16:00 05/29/19 15:42 Influenza Virus Vaccine Quadrival (Afluria Quad 2019-20 (3yr Up) Syringe) 0.5 ml ONCE ONCE VAX IM 05/29/19 09:00 05/29/19 09:01 DC 05/29/19 14:26 Potassium Chloride (Klor-Con) 20 meq 1X ONCE PO 05/29/19 09:00 05/29/19 09:01 DC 05/29/19 09:44 Metoprolol Tartrate (Lopressor) 25 mg 1X ONCE PO 05/29/19 09:45 05/29/19 09:46 DC 05/29/19 09:41 Heparin Sodium/ Dextrose 500 ml @ 20 mls/hr CONT PRN IV SEE COMMENTS 05/29/19 09:30 05/29/19 09:49 Heparin Sodium (Porcine) (Heparin Sodium) 2,850 unit PRN Q6HRS PRN IV FOR UFH LEVEL LESS THAN 0.2 05/29/19 09:30 05/29/19 09:48 Aspirin (Ecotrin) 325 mg 1X ONCE PO 05/29/19 10:00 05/29/19 10:01 DC 05/29/19 09:50 Aspirin (Ecotrin) 81 mg DAILYWBKFT PO 05/30/19 08:00 05/29/19 09:40 Nitroglycerin (Nitroglycerin) 200 mcg 1X ONCE IART 05/29/19 11:45 05/29/19 11:46 DC 05/29/19 11:45 Verapamil HCl (Verapamil) 2.5 mg 1X ONCE IART 05/29/19 11:45 05/29/19 11:46 DC 05/29/19 11:45 Heparin Sodium (Porcine) (Heparin Sodium) 2,500 unit 1X ONCE IART 05/29/19 11:45 05/29/19 11:46 DC 05/29/19 11:45 Heparin Sodium/ Sodium Chloride (HEPARIN for ARTERIAL LINE FLUSH) 1,000 unit 1X ONCE IART 05/29/19 11:45 05/29/19 11:46 DC 05/29/19 11:45 Heparin Sodium/ Sodium Chloride (HEPARIN for ARTERIAL LINE FLUSH) 1,000 unit 1X ONCE IART 05/29/19 11:45 05/29/19 11:46 DC 05/29/19 11:45 Midazolam HCl (Versed) 2 mg 1X ONCE IV 05/29/19 11:45 05/29/19 11:46 DC 05/29/19 11:45 Fentanyl Citrate (Fentanyl 2ml Vial) 100 mcg 1X ONCE IV 05/29/19 11:45 05/29/19 11:46 DC 05/29/19 11:45 Iohexol (Omnipaque 300 Mg/ml) 100 ml 1X ONCE IART 05/29/19 11:45 05/29/19 11:46 DC 05/29/19 11:45 Lidocaine HCl (Xylocaine-Mpf 1% 2ml Vial) 2 ml 1X ONCE INJ 05/29/19 11:45 05/29/19 11:46 DC 05/29/19 11:45 Heparin Sodium (Porcine) (Heparin Sodium) 4,000 unit 1X ONCE IV 05/29/19 12:00 05/29/19 12:04 DC 05/29/19 12:00 Digoxin (Lanoxin) 250 mcg DAILY PO 05/29/19 14:30 05/30/19 07:42 LAB Lab: Laboratory Tests Test 05/29/19 09:35 05/30/19 03:00 Sodium Level 144 mmol/L (136-145) 143 mmol/L (136-145) Potassium Level 4.4 mmol/L (3.5-5.1) # 4.1 mmol/L (3.5-5.1) Chloride Level 101 mmol/L (98-107) 102 mmol/L (98-107) Carbon Dioxide Level 37 mmol/L (21-32) H 36 mmol/L (21-32) H Anion Gap 6 (6-14) 5 (6-14) L Blood Urea Nitrogen 9 mg/dL (8-26) 11 mg/dL (8-26) Creatinine 1.0 mg/dL (0.7-1.3) 1.0 mg/dL (0.7-1.3) Estimated GFR (Cockcroft-Gault) 75.7 75.7 Glucose Level 106 mg/dL (70-99) H 111 mg/dL (70-99) H Calcium Level 8.2 mg/dL (8.5-10.1) L 8.3 mg/dL (8.5-10.1) L Magnesium Level 1.8 mg/dL (1.8-2.4) Troponin I Quantitative 0.348 ng/mL (0.000-0.055) Laboratory Tests 05/29/19 09:35 05/30/19 03:00 CAMDEN FISHER MD May 30, 2019 07:49
[2019-05-30] MEDS: ASPIRIN ENTERIC COATED 81 MG TABLET.DR. PO SCH (07:55)
[2019-05-30] MEDS ORDERED: ASPIRIN ENTERIC COATED 81 MG TABLET.DR. PO SCH (08:00)
[2019-05-30 08:40] LABS: PROTHROMBIN TIME PATIENT 13.4 SEC (11.7-14.0)
[2019-05-30] MEDS ORDERED: METOPROLOL TART IMMED RELEASE 25 MG TABLET. PO ONE (09:15)
--- NOTE | 2019-05-30 09:28 | PDOC ---
PULMONARY PROGRESS NOTES Subjective PT STILL SOA NO CHEST PAIN NON PRODUCTIVE COUGH Vitals Vital Signs Date Time Temp Pulse Resp B/P (MAP) Pulse Ox O2 Delivery O2 Flow Rate FiO2 05/30/19 07:42 101 135/89 05/30/19 07:00 96.1 18 91 Nasal Cannula 5.0 96.1 ROS: No Nausea, No Chest Pain, No Abdominal Pain, No Increase Cough General: Alert Lungs: Wheezing Cardiovascular: S1, S2 Abdomen: Soft, Non-tender Neuro Exam: Alert Extremities: Other (EDEMA) Skin: Warm Labs Laboratory Tests Test 05/28/19 17:10 05/28/19 22:29 05/29/19 00:00 05/29/19 09:35 White Blood Count 8.2 x10^3/uL (4.0-11.0) Red Blood Count 3.15 x10^6/uL (4.30-5.70) Hemoglobin 11.2 g/dL (13.0-17.5) Hematocrit 34.7 % (39.0-53.0) Mean Corpuscular Volume 110 fL (79-100) Mean Corpuscular Hemoglobin 36 pg (25-35) Mean Corpuscular Hemoglobin Concent 32 g/dL (31-37) Red Cell Distribution Width 17.3 % (11.5-14.5) Platelet Count 424 x10^3/uL (140-400) Neutrophils (%) (Auto) 83 % (31-73) Lymphocytes (%) (Auto) 9 % (24-48) Monocytes (%) (Auto) 7 % (0-9) Eosinophils (%) (Auto) 1 % (0-3) Basophils (%) (Auto) 1 % (0-3) Neutrophils # (Auto) 6.8 x10^3/uL (1.8-7.7) Lymphocytes # (Auto) 0.7 x10^3/uL (1.0-4.8) Monocytes # (Auto) 0.6 x10^3/uL (0.0-1.1) Eosinophils # (Auto) 0.0 x10^3/uL (0.0-0.7) Basophils # (Auto) 0.0 x10^3/uL (0.0-0.2) Platelet Estimate Increased (ADEQUATE) Giant Platelets Occ Polychromasia Slight Anisocytosis Slight Macrocytosis Mod Prothrombin Time 14.0 SEC (11.7-14.0) Prothromb Time International Ratio 1.1 (0.8-1.1) Sodium Level 142 mmol/L (136-145) 144 mmol/L (136-145) Potassium Level 3.1 mmol/L (3.5-5.1) 4.4 mmol/L (3.5-5.1) Chloride Level 98 mmol/L (98-107) 101 mmol/L (98-107) Carbon Dioxide Level 30 mmol/L (21-32) 37 mmol/L (21-32) Anion Gap 14 (6-14) 6 (6-14) Blood Urea Nitrogen 9 mg/dL (8-26) 9 mg/dL (8-26) Creatinine 1.2 mg/dL (0.7-1.3) 1.0 mg/dL (0.7-1.3) Estimated GFR (Cockcroft-Gault) 61.3 75.7 BUN/Creatinine Ratio 8 (6-20) Glucose Level 112 mg/dL (70-99) 106 mg/dL (70-99) Calcium Level 8.5 mg/dL (8.5-10.1) 8.2 mg/dL (8.5-10.1) Magnesium Level 1.4 mg/dL (1.8-2.4) 1.8 mg/dL (1.8-2.4) Total Bilirubin 0.8 mg/dL (0.2-1.0) Aspartate Amino Transf (AST/SGOT) 30 U/L (15-37) Alanine Aminotransferase (ALT/SGPT) 20 U/L (16-63) Alkaline Phosphatase 134 U/L (46-116) Creatine Kinase 53 U/L (39-308) Troponin I Quantitative 0.398 ng/mL (0.000-0.055) 0.425 ng/mL (0.000-0.055) 0.348 ng/mL (0.000-0.055) LD-Srn-K-Type Natriuretic Peptide 1748 pg/mL (0-124) Total Protein 6.4 g/dL (6.4-8.2) Albumin 2.7 g/dL (3.4-5.0) Albumin/Globulin Ratio 0.7 (1.0-1.7) Lipase 116 U/L (73-393) Thyroid Stimulating Hormone (TSH) 3.711 uIU/mL (0.358-3.74) Digoxin Level < 0.2 ng/mL (0.9-2.0) Digoxin Last Dose Date Digoxin Last Dose Time Triglycerides Level 190 mg/dL (0-150) Cholesterol Level 140 mg/dL (0-200) LDL Cholesterol, Calculated 73 mg/dL (0-100) VLDL Cholesterol, Calculated 38 mg/dL (0-40) Non-HDL Cholesterol Calculated 111 mg/dL (0-129) HDL Cholesterol 29 mg/dL (40-60) Cholesterol/HDL Ratio 4.8 Test 05/30/19 03:00 05/30/19 08:24 Sodium Level 143 mmol/L (136-145) Potassium Level 4.1 mmol/L (3.5-5.1) Chloride Level 102 mmol/L (98-107) Carbon Dioxide Level 36 mmol/L (21-32) Anion Gap 5 (6-14) Blood Urea Nitrogen 11 mg/dL (8-26) Creatinine 1.0 mg/dL (0.7-1.3) Estimated GFR (Cockcroft-Gault) 75.7 Glucose Level 111 mg/dL (70-99) Calcium Level 8.3 mg/dL (8.5-10.1) Prothrombin Time 13.4 SEC (11.7-14.0) Prothromb Time International Ratio 1.1 (0.8-1.1) Laboratory Tests Test 05/29/19 09:35 05/30/19 03:00 05/30/19 08:24 Sodium Level 144 mmol/L (136-145) 143 mmol/L (136-145) Potassium Level 4.4 mmol/L (3.5-5.1) 4.1 mmol/L (3.5-5.1) Chloride Level 101 mmol/L (98-107) 102 mmol/L (98-107) Carbon Dioxide Level 37 mmol/L (21-32) 36 mmol/L (21-32) Anion Gap 6 (6-14) 5 (6-14) Blood Urea Nitrogen 9 mg/dL (8-26) 11 mg/dL (8-26) Creatinine 1.0 mg/dL (0.7-1.3) 1.0 mg/dL (0.7-1.3) Estimated GFR (Cockcroft-Gault) 75.7 75.7 Glucose Level 106 mg/dL (70-99) 111 mg/dL (70-99) Calcium Level 8.2 mg/dL (8.5-10.1) 8.3 mg/dL (8.5-10.1) Magnesium Level 1.8 mg/dL (1.8-2.4) Troponin I Quantitative 0.348 ng/mL (0.000-0.055) Prothrombin Time 13.4 SEC (11.7-14.0) Prothromb Time International Ratio 1.1 (0.8-1.1) Medications Active Scripts Medications Dose Route/Sig Max Daily Dose Days Date Category Aspirin Ec (Aspirin) 81 Mg Tablet.dr 81 Mg PO DAILYWBKFT 90 01/19/19 Rx Atorvastatin Calcium 40 Mg Tablet 1 Tab PO QHS 01/15/19 Reported Gabapentin (Gabapentin) 300 Mg Capsule 300 Mg PO TID 03/15/18 Reported Warfarin Sodium 5 Mg Tablet 1 Tab PO DAILY 01/27/16 Reported Impression . IMPRESSION: 1. Acute hypoxemic respiratory failure. 2. Acute non-ST segment elevation myocardial infarction. 3. Coronary artery disease with previous coronary artery bypass grafting and previous stenting, status post cardiac catheterization revealing no critical stenosis. 4. Acute exacerbation of chronic obstructive pulmonary disease. 5. Morbid obesity. 6. Bilateral pleural effusions, previous thoracentesis in December, removed a total of 700 mL. 7. Hyperlipidemia. 8. Hypertension. 9. Tobacco dependence, in remission. 10. Atrial fibrillation with rapid ventricular response. Plan . FOLLOW CARD INPUT POSSIBLE CARDIOVERSION PT INSTRUCTED TO TAKE MED PRESCRIBED WILL NEED OUT PT REHAB DIURESE EFFUSION TOO SMALL FOR THORACENTESIS BORIS VINCENT MD May 30, 2019 09:28
--- NOTE | 2019-05-30 11:15 | PDOC ---
ROBIN TUCKER GEOLOGICAL TECHNICAL OFFICER 05/30/19 1115: CARDIO Progress Notes Date and Time Date of Service 05/30/2019 Time of Evaluation 0910 Subjective Subjective: No Chest Pain, No shortness of breath, No Palpitations Vitals Vitals Vital Signs Date Time Temp Pulse Resp B/P (MAP) Pulse Ox O2 Delivery O2 Flow Rate FiO2 05/30/19 10:02 101 135/89 05/30/19 08:00 Nasal Cannula 5.0 05/30/19 07:00 96.1 18 91 96.1 Weight Weight [ ] Input and Output Intake and Output Intake and Output 05/30/19 06:59 Intake Total 400 ml Balance 400 ml Intake Oral 360 ml IV Total 40 ml # Voids 2 Laboratory Labs Laboratory Tests Test 05/30/19 03:00 05/30/19 08:24 Sodium Level 143 mmol/L (136-145) Potassium Level 4.1 mmol/L (3.5-5.1) Chloride Level 102 mmol/L (98-107) Carbon Dioxide Level 36 mmol/L (21-32) Anion Gap 5 (6-14) Blood Urea Nitrogen 11 mg/dL (8-26) Creatinine 1.0 mg/dL (0.7-1.3) Estimated GFR (Cockcroft-Gault) 75.7 Glucose Level 111 mg/dL (70-99) Calcium Level 8.3 mg/dL (8.5-10.1) Prothrombin Time 13.4 SEC (11.7-14.0) Prothromb Time International Ratio 1.1 (0.8-1.1) Physical Exam HEENT: Neck Supple W Full Motion Chest: Symmetric LUNGS: Clear to Auscultation Heart: irregularly irregular (AFIB) Abdomen: Soft N/T, Other (truncal obesity) Extremities: No Calf Tenderness, Other (trace Le edema) Neurology: alert, oriented, follow commands Assessment Assessment 1. NSTEMI: Peaked at 0.5, demand mediated from RVR 2. Chronic AFIB: HR remains 100-120 3. Hypotension: noted with BB and cardizem use 4. COPD: O2 dependent 5. CAD; S/P LHC with patent stents to RCA and LAD 6. Hx of HTN: labile this morning 7. HLP 8. Macrocytosis 9. Possible ETOH abuse 10. DACIA: CPAP intolerant 11. Hypokalemia/hypomagnesemia: resolved 12. Acute on chronic diastolic CHF: appears compensated Recommendations 1. Discussed coumadin and NOAC and appears that he would like to continue with coumadin for now 2. Continue with digoxin. Will retrial metoprolol use and note BP trend 3. Discussed stopping or decreasing ETOH consumption. 4. Will pursue rate control but if intolerant to BB and HR remains uncontrolled then will pursue ROBERTO/CVN next week as an inpt after sufficient anticoagulation otherwise continue with current appt with EP this May. TANIKA SUMNER MD 05/30/19 2353: CARDIO Progress Notes Plan Plan Pt. seen and examined. AGree with above GRINDER SET UP OPERATOR INTERNAL note. Supportive care. If still here over the weekend, plan for ROBERTO/CVN next week if INR therapeutic Otherwise, plan for EP visit. HR/BP stable. ROBIN TUCKER APRN May 30, 2019 11:15 TANIKA SUMNER MD May 30, 2019 23:53
[2019-05-30] MEDS: METOPROLOL TART IMMED RELEASE 25 MG TABLET. PO SCH ×3 (12:23→23:09)
[2019-05-30] MEDS: WARFARIN 5 MG TABLET. PO SCH (14:17)
[2019-05-30] MEDS: ATORVASTATIN CALCIUM 40 MG TABLET. PO SCH (20:22)
[2019-05-31 03:55] VITALS: BP 124/76
[2019-05-31 04:41] LABS: PROTHROMBIN TIME PATIENT 14.4 SEC (11.7-14.0)
[2019-05-31] MEDS: METOPROLOL TART IMMED RELEASE 25 MG TABLET. PO SCH ×4 (05:56→23:58)
[2019-05-31 07:00] VITALS: BP 136/73
[2019-05-31] MEDS: GABAPENTIN 300 MG CAPSULE. PO SCH ×3 (08:40→20:25)
[2019-05-31] MEDS: ASPIRIN ENTERIC COATED 81 MG TABLET.DR. PO SCH (08:40)
[2019-05-31] MEDS: DIGOXIN 125 MCG TABLET. PO SCH (08:41)
[2019-05-31 11:00] VITALS: BP 134/73
--- NOTE | 2019-05-31 11:11 | PDOC ---
Provider Note Provider Note vss, still rate controlled af- inr 1.2 so will inc warf- he is aware that he had cardiac injury per MAR Khan MD May 31, 2019 11:11
--- NOTE | 2019-05-31 11:12 | PDOC ---
Provider Note Provider Note B12 normal 10?18, mcv high 110 likely etoh- will repeat B12 to be sure MAR ANTONY MD May 31, 2019 11:12
--- NOTE | 2019-05-31 11:47 | PDOC ---
PULMONARY PROGRESS NOTES Subjective PT. remains on N/C oxygen at his baseline denies SOB or increased cough Vitals Vital Signs Date Time Temp Pulse Resp B/P (MAP) Pulse Ox O2 Delivery O2 Flow Rate FiO2 05/31/19 08:41 93 136/73 05/31/19 07:51 Nasal Cannula 5.0 05/31/19 07:00 97.5 18 99 97.5 ROS: No Nausea, No Chest Pain, No Abdominal Pain, No Increase Cough General: Alert, Oriented X4 Lungs: Wheezing Cardiovascular: S1, S2 Abdomen: Soft, Non-tender Neuro Exam: Alert Extremities: Other (trace BLE edema ) Skin: Warm, Dry Labs Laboratory Tests Test 05/30/19 03:00 05/30/19 08:24 05/31/19 04:10 Sodium Level 143 mmol/L (136-145) Potassium Level 4.1 mmol/L (3.5-5.1) Chloride Level 102 mmol/L (98-107) Carbon Dioxide Level 36 mmol/L (21-32) Anion Gap 5 (6-14) Blood Urea Nitrogen 11 mg/dL (8-26) Creatinine 1.0 mg/dL (0.7-1.3) Estimated GFR (Cockcroft-Gault) 75.7 Glucose Level 111 mg/dL (70-99) Calcium Level 8.3 mg/dL (8.5-10.1) Prothrombin Time 13.4 SEC (11.7-14.0) 14.4 SEC (11.7-14.0) Prothromb Time International Ratio 1.1 (0.8-1.1) 1.2 (0.8-1.1) Laboratory Tests Test 05/31/19 04:10 Prothrombin Time 14.4 SEC (11.7-14.0) Prothromb Time International Ratio 1.2 (0.8-1.1) Medications Active Scripts Medications Dose Route/Sig Max Daily Dose Days Date Category Aspirin Ec (Aspirin) 81 Mg Tablet.dr 81 Mg PO DAILYWBKFT 90 01/19/19 Rx Atorvastatin Calcium 40 Mg Tablet 1 Tab PO QHS 01/15/19 Reported Gabapentin (Gabapentin) 300 Mg Capsule 300 Mg PO TID 03/15/18 Reported Warfarin Sodium 5 Mg Tablet 1 Tab PO DAILY 01/27/16 Reported Impression . 1. Acute hypoxemic respiratory failure. 2. Acute non-ST segment elevation myocardial infarction. 3. Coronary artery disease with previous coronary artery bypass grafting and previous stenting to RCA and LAD, status post cardiac catheterization revealing no critical stenosis. 4. Acute exacerbation of chronic obstructive pulmonary disease. 5. Morbid obesity. 6. Bilateral pleural effusions, previous thoracentesis in December, removed a total of 700 mL. 7. Hyperlipidemia. 8. Hypertension. 9. Tobacco dependence, in remission. 10. Atrial fibrillation with rapid ventricular response. 11. COPD 12. DACIA 13. Acute on chronic diastolic chf Plan . 1. cont to follow cardiology recommendations 2. cont. coumadin 3. plan to D/C to rehab 4. monitor effusions, no need fro thoracentesis at this time 5. encourage medical complaince and ambulation 6. cont. supplemental oxygen BORIS VINCENT MD May 31, 2019 11:47
[2019-05-31 15:00] VITALS: BP 135/86
[2019-05-31] MEDS ORDERED: WARFARIN 7.5 MG TABLET. PO SCH (16:00)
[2019-05-31 18:55] VITALS: BP 131/85
[2019-05-31] MEDS: ATORVASTATIN CALCIUM 40 MG TABLET. PO SCH (20:25)
[2019-05-31 23:02] VITALS: BP 126/68
[2019-06-01 03:14] VITALS: BP 131/85
[2019-06-01 04:19] LABS: PROTHROMBIN TIME PATIENT 15.8 SEC (11.7-14.0)
[2019-06-01] MEDS: METOPROLOL TART IMMED RELEASE 25 MG TABLET. PO SCH ×3 (05:17→17:32)
[2019-06-01 07:00] VITALS: BP 150/73
[2019-06-01] MEDS: ASPIRIN ENTERIC COATED 81 MG TABLET.DR. PO SCH (08:54)
[2019-06-01] MEDS: GABAPENTIN 300 MG CAPSULE. PO SCH ×3 (08:54→20:34)
[2019-06-01] MEDS: DIGOXIN 125 MCG TABLET. PO SCH (08:54)
--- NOTE | 2019-06-01 10:34 | PDOC ---
Provider Note Provider Note vss, still af rate ok- exam same, inr 1.3- will inc to 10 mg today- rest same MAR ANTONY MD Jun 01, 2019 10:34
[2019-06-01 11:01] VITALS: BP 145/69
--- NOTE | 2019-06-01 11:56 | PDOC ---
PULMONARY PROGRESS NOTES Subjective PT. remains on N/C oxygen at his baseline denies SOB or increased cough concerned about missing his EP visit this week. Vitals Vital Signs Date Time Temp Pulse Resp B/P (MAP) Pulse Ox O2 Delivery O2 Flow Rate FiO2 06/01/19 11:01 97.9 78 20 145/69 (94) 98 Nasal Cannula 3.0 97.9 ROS: No Nausea, No Chest Pain, No Abdominal Pain, No Increase Cough General: Alert, Oriented X4, No acute distress Lungs: Wheezing Cardiovascular: S1, S2 Abdomen: Soft, Non-tender Neuro Exam: Alert Extremities: Other (trace BLE edema ) Skin: Warm, Dry Labs Laboratory Tests Test 05/31/19 04:10 06/01/19 04:00 Prothrombin Time 14.4 SEC (11.7-14.0) 15.8 SEC (11.7-14.0) Prothromb Time International Ratio 1.2 (0.8-1.1) 1.3 (0.8-1.1) Laboratory Tests Test 06/01/19 04:00 Prothrombin Time 15.8 SEC (11.7-14.0) Prothromb Time International Ratio 1.3 (0.8-1.1) Medications Active Scripts Medications Dose Route/Sig Max Daily Dose Days Date Category Aspirin Ec (Aspirin) 81 Mg Tablet.dr 81 Mg PO DAILYWBKFT 90 01/19/19 Rx Atorvastatin Calcium 40 Mg Tablet 1 Tab PO QHS 01/15/19 Reported Gabapentin (Gabapentin) 300 Mg Capsule 300 Mg PO TID 03/15/18 Reported Warfarin Sodium 5 Mg Tablet 1 Tab PO DAILY 01/27/16 Reported Impression . 1. Acute on chronic hypoxemic respiratory failure---improved 2. Acute non-ST segment elevation myocardial infarction. 3. Coronary artery disease with previous coronary artery bypass grafting and previous stenting to RCA and LAD, status post cardiac catheterization revealing no critical stenosis. 4. Acute exacerbation of chronic obstructive pulmonary disease. 5. Morbid obesity. 6. Bilateral pleural effusions, previous thoracentesis in December, removed a total of 700 mL. 7. Hyperlipidemia. 8. Hypertension. 9. Tobacco dependence, in remission. 10. Atrial fibrillation with rapid ventricular response. 11. COPD 12. DACIA 13. Acute on chronic diastolic chf 14. Subtherapuetic INR --- 1.3 today Plan . PT SEE AN EP DOCTOR OUT PT POSSIBLE D/C SUNDAY OK BY ME 1. cont to follow cardiology recommendations--- 2. cont. coumadin, consider bride with heparin or lovenox as INR remain subtheraputic 3. plan to D/C to rehab 4. monitor effusions, no need fro thoracentesis at this time 5. encourage medical compliance and ambulation 6. cont. supplemental oxygen/bronchodilators 7. Cont. supportive care BORIS VINCENT MD Jun 01, 2019 11:56
[2019-06-01 15:00] VITALS: BP 122/71
[2019-06-01] MEDS: WARFARIN 5 MG TABLET. PO SCH (17:30)
[2019-06-01 19:04] VITALS: BP 115/76
[2019-06-01] MEDS: ATORVASTATIN CALCIUM 40 MG TABLET. PO SCH (20:34)
[2019-06-01 23:17] VITALS: BP 117/74
[2019-06-02] VITALS (13 sets, daily range): BP systolic 123–165; BP diastolic 68–110
[2019-06-02] MEDS: METOPROLOL TART IMMED RELEASE 25 MG TABLET. PO SCH ×5 (05:03→23:39)
--- NOTE | 2019-06-02 09:03 | PDOC ---
PULMONARY PROGRESS NOTES Subjective STILL SOA S/P ROBERTO WITH CV Vitals Vital Signs Date Time Temp Pulse Resp B/P (MAP) Pulse Ox O2 Delivery O2 Flow Rate FiO2 06/02/19 07:00 97.3 77 18 140/87 (104) 98 Nasal Cannula 3.0 97.3 ROS: No Nausea, No Chest Pain, No Abdominal Pain, No Increase Cough General: Alert, Oriented X4, No acute distress Lungs: Wheezing Cardiovascular: S1, S2 Abdomen: Soft, Non-tender Neuro Exam: Alert Extremities: Other (trace BLE edema ) Skin: Warm, Dry Labs Laboratory Tests Test 06/01/19 04:00 Prothrombin Time 15.8 SEC (11.7-14.0) Prothromb Time International Ratio 1.3 (0.8-1.1) Medications Active Scripts Medications Dose Route/Sig Max Daily Dose Days Date Category Aspirin Ec (Aspirin) 81 Mg Tablet. 81 Mg PO DAILYWBKFT 90 01/19/19 Rx Atorvastatin Calcium 40 Mg Tablet 1 Tab PO QHS 01/15/19 Reported Gabapentin (Gabapentin) 300 Mg Capsule 300 Mg PO TID 03/15/18 Reported Warfarin Sodium 5 Mg Tablet 1 Tab PO DAILY 01/27/16 Reported Impression . 1. Acute on chronic hypoxemic respiratory failure---improved 2. Acute non-ST segment elevation myocardial infarction. 3. Coronary artery disease with previous coronary artery bypass grafting and previous stenting to RCA and LAD, status post cardiac catheterization revealing no critical stenosis. 4. Acute exacerbation of chronic obstructive pulmonary disease. 5. Morbid obesity. 6. Bilateral pleural effusions, previous thoracentesis in December, removed a total of 700 mL. 7. Hyperlipidemia. 8. Hypertension. 9. Tobacco dependence, in remission. 10. Atrial fibrillation with rapid ventricular response. 11. COPD 12. DACIA 13. Acute on chronic diastolic chf Plan . S/P ROBERTO WITH CV NOW IN SR 1. cont to follow cardiology recommendations--- 2. cont. coumadin, MONITOR INR 3. plan to D/C to rehab 4. monitor effusions, no need fro thoracentesis at this time 5. encourage medical compliance and ambulation 6. cont. supplemental oxygen/bronchodilators 7. Cont. supportive care BORIS VINCENT MD Jun 02, 2019 09:03
--- NOTE | 2019-06-02 10:45 | PN ---
DATE: 06/02/2019 DAILY PROGRESS NOTE LOCATION: Room 205. SUBJECTIVE: The patient is awake and alert, comfortable at rest, but short of breath still with any exertion. OBJECTIVE: VITAL SIGNS: Stable. He is afebrile. Pulse rate is currently controlled. He is still in AFib. HEART: Irregularly irregular with rate in 80s. CHEST: Diminished breath sounds bilaterally, particularly bases. ABDOMEN: Benign. EXTREMITIES: Unremarkable. LABORATORY DATA: This morning's INR is still pending and he tells me he has not been drawn. He is n.p.o. for presumed cardioversion today if the INR allows. IMPRESSION: 1. Non-ST elevated myocardial infarction. 2. Atrial fibrillation with rapid ventricular response. 3. Severe chronic obstructive pulmonary disease. 4. Bilateral pleural effusions. 5. Hyperlipidemia. 6. Hypertension. 7. Obstructive sleep apnea with inability to be compliant at home with therapy. 8. Pulmonary hypertension. PLAN: We will continue present and current and follow Cardiology's lead. I discussed with him possible rehabilitation at discharge and he is not opposed to it if we believe it would help him. CAMDEN FISHER MD DR: MAGEN/guillaume JOB#: [id number] / [id number]
[2019-06-02] MEDS ORDERED: LIDOCAINE 2% VISCOUS 15 ML SOLUTION. SWSW ONE (12:30)
[2019-06-02] MEDS ORDERED: LIDOCAINE 2% VISCOUS 15 ML SOLUTION. SWSW PRN (12:30)
[2019-06-02] MEDS ORDERED: LIDOCAINE 2% TOPICAL JELLY 30GM TUBE. TP ONE (12:30)
[2019-06-02] MEDS ORDERED: BENZOCAINE ONE 20% MUCOSAL SPRAY. MM ×2 (12:30→12:45)
[2019-06-02] MEDS ORDERED: LIDOCAINE 2% VISCOUS 15 ML SOLUTION. MM ONE (12:45)
[2019-06-02] MEDS ORDERED: LIDOCAINE 2% TOPICAL JELLY 5GM TUBE. TP ONE (12:45)
[2019-06-02] MEDS ORDERED: 0.9 % SODIUM CHLORIDE 10 ML DISP.SYRIN. IV PRN ×2 (12:45)
[2019-06-02] MEDS ORDERED: IV RINGERS,LACTATED 1000ML 1,000 ML IV SCH (13:10)
[2019-06-02] MEDS ORDERED: MORPHINE SULFATE 2 MG/ML VIAL. IV PRN (13:15)
[2019-06-02] MEDS ORDERED: fentaNYL PF VIAL 100 MCG/2 ML VIAL IV PRN ×2 (13:15)
[2019-06-02] MEDS ORDERED: ONDANSETRON PF 4 MG/2 ML VIAL. IV PRN (13:15)
[2019-06-02] MEDS ORDERED: PROCHLORPERAZINE 10 MG/2 ML VIAL. IV PRN (13:15)
[2019-06-02] MEDS ORDERED: HYDROmorphone 2 MG/ML VIAL IV PRN (13:15)
[2019-06-02] MEDS ORDERED: LIDOCAINE 2% 100 MG/5 ML SYRINGE. ONE (14:00)
[2019-06-02] MEDS: GABAPENTIN 300 MG CAPSULE. PO SCH ×3 (14:00→21:05)
[2019-06-02] MEDS ORDERED: PROPOFOL 10 MG/ML (20ML) VIAL. IV ONE (14:00)
--- NOTE | 2019-06-02 14:26 | EKG ---
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
--- NOTE | 2019-06-02 14:30 | CARD ---
MR#: [id number] Date of Study: 06/02/2019 Ordering Physician: REY HUYNH, Referring Physician: REY HUYNH, Tech: Pamela Gonzalez APPROVED REPORT EXAM: Two-dimensional and M-mode echocardiogram with Doppler and color Doppler. INDICATION COPD Atrial Fibrillation Cardiac Disease: CAD RISK FACTORS Hypertension Hyperlipidemia Tricuspid Valve RAP [id number] Peak Gr.37mmHg [id number] Reason For Test : Rule out Intracardiac Thrombus. PROCEDURE After obtaining informed consent, patient underwent transesophageal echo in the PACU. Type of Sedation : General Anesthesia Sedation was administered by . Sedation was achieved with Propofol 80mg intravenously. Transesophageal probe was inserted and advanced into esophagus by Myron Meadows MD. The ROBERTO was performed without complications. Synchronized Cardioversion attempted: Successful Synchronized Cardioversion acheived with 360 Joules after 2 attempt(s). Rhythm following Synchronized Cardioversion: Normal Sinus Rhythm Throughout the procedure, the blood pressure, pulse oximetry, cardiac rhythm, and rate were monitored . LEFT VENTRICLE The left ventricle is normal size. There is mild to moderate concentric left ventricular hypertrophy. The left ventricular systolic function is normal and the ejection fraction is within normal range. T he Ejection Fraction is 55%. There is normal LV segmental wall motion. Diastology not performed. No l eft ventricle thrombus noted on this study. RIGHT VENTRICLE The right ventricle is mildly dilated. There is normal right ventricular wall thickness. RV Systolic function is mildly reduced. ATRIA The left atrium is borderline dilated. The right atrium is moderately dilated. The interatrial septum is intact with no evidence for an atrial septal defect or patent foramen ovale as noted on 2-D or Do ppler imaging. There is no thrombus noted in the left atrial appendage. AORTIC VALVE The aortic valve is thickened but opens well. Doppler and Color Flow revealed no significant aortic r egurgitation. There is no significant aortic valvular stenosis. MITRAL VALVE The mitral valve is thickened but opens well. A mild mitral valve prolapse is present. There is no mi tral valve stenosis. Doppler and Color-flow revealed trace mitral regurgitation. TRICUSPID VALVE The tricuspid valve is normal in structure and function. Doppler and Color Flow revealed mild to mode rate tricuspid regurgitation with an estimated PAP of 40 mmHg. There is no tricuspid valve stenosis. PULMONIC VALVE The pulmonary valve is normal in structure and function. Doppler and Color Flow revealed no pulmonic valvular regurgitation. There is no pulmonic valvular stenosis. GREAT VESSELS The aortic root is normal in size. The IVC is normal in size and collapses >50% with inspiration. Critical Notification Critical Value: No <Conclusion> The left ventricular systolic function is normal and the ejection fraction is within normal range. Th e Ejection Fraction is 55%. There is normal LV segmental wall motion. There is no thrombus noted in the left atrial appendage. Doppler and Color Flow revealed mild to moderate tricuspid regurgitation with an estimated PAP of 40 mmHg. Successful CVN to SR. Signed by : Demetrio Meadows, Electronically Approved : 06/02/2019 14:29:59
--- NOTE | 2019-06-02 14:49 | NUR ---
SS following up with discharge planning. PT recommended home independent. SS will continue to follow for discharge planning.
[2019-06-02] MEDS: ASPIRIN ENTERIC COATED 81 MG TABLET.DR. PO SCH (15:27)
[2019-06-02] MEDS: DIGOXIN 125 MCG TABLET. PO SCH (15:29)
[2019-06-02] MEDS: WARFARIN 5 MG TABLET. PO SCH (16:35)
--- NOTE | 2019-06-02 16:35 | NUR ---
10mg Coumadin scheduled this evening, dosed & ordered by physician. Patient refused 10mg but took 5mg, attempted to call Dr. Duffy but did not receive a call back.
[2019-06-02] MEDS: ATORVASTATIN CALCIUM 40 MG TABLET. PO SCH (21:05)
[2019-06-03 05:45] LABS: PROTHROMBIN TIME PATIENT 25.6 SEC (11.7-14.0)
[2019-06-03 06:06] VITALS: BP 115/67
[2019-06-03] MEDS: METOPROLOL TART IMMED RELEASE 25 MG TABLET. PO SCH ×2 (06:06→12:03)
[2019-06-03] MEDS: GABAPENTIN 300 MG CAPSULE. PO SCH ×2 (08:15→14:10)
[2019-06-03] MEDS: ASPIRIN ENTERIC COATED 81 MG TABLET.DR. PO SCH (08:15)
[2019-06-03] MEDS: DIGOXIN 125 MCG TABLET. PO SCH (08:16)
[2019-06-03 11:12] VITALS: BP 141/81
[2019-06-03] MEDS ORDERED: WARFARIN 5 MG TABLET. PO SCH (12:55)
--- NOTE | 2019-06-03 13:08 | PDOC ---
PULMONARY PROGRESS NOTES Subjective less soa Vitals Vital Signs Date Time Temp Pulse Resp B/P (MAP) Pulse Ox O2 Delivery O2 Flow Rate FiO2 06/03/19 12:03 75 141/81 06/03/19 11:12 98.2 18 96 Nasal Cannula 4.0 98.2 ROS: No Nausea, No Chest Pain, No Abdominal Pain, No Increase Cough General: Alert, Oriented X4, No acute distress Lungs: Clear Cardiovascular: S1, S2 Abdomen: Soft, Non-tender Neuro Exam: Alert Extremities: Other (trace BLE edema ) Skin: Warm, Dry Labs Laboratory Tests Test 06/02/19 11:05 06/03/19 05:00 Prothrombin Time 22.0 SEC (11.7-14.0) 25.6 SEC (11.7-14.0) Prothromb Time International Ratio 2.0 (0.8-1.1) 2.4 (0.8-1.1) Laboratory Tests Test 06/03/19 05:00 Prothrombin Time 25.6 SEC (11.7-14.0) Prothromb Time International Ratio 2.4 (0.8-1.1) Medications Active Scripts Medications Dose Route/Sig Max Daily Dose Days Date Category Aspirin Ec (Aspirin) 81 Mg Tablet.dr 81 Mg PO DAILYWBKFT 90 01/19/19 Rx Atorvastatin Calcium 40 Mg Tablet 1 Tab PO QHS 01/15/19 Reported Gabapentin (Gabapentin) 300 Mg Capsule 300 Mg PO TID 03/15/18 Reported Warfarin Sodium 5 Mg Tablet 1 Tab PO DAILY 01/27/16 Reported Impression . 1. Acute on chronic hypoxemic respiratory failure---improved 2. Acute non-ST segment elevation myocardial infarction. 3. Coronary artery disease with previous coronary artery bypass grafting and previous stenting to RCA and LAD, status post cardiac catheterization revealing no critical stenosis.LVEDP 22 4. Acute exacerbation of chronic obstructive pulmonary disease. 5. Morbid obesity. 6. Bilateral pleural effusions, previous thoracentesis in December, removed a total of 700 mL. 7. Hyperlipidemia. 8. Hypertension. 9. Tobacco dependence, in remission. 10. Atrial fibrillation with rapid ventricular response. 11. COPD 12. DACIA 13. Acute on chronic diastolic chf Plan . S/P ROBERTO WITH CV NOW IN SR 1. cont to follow cardiology recommendations--- 2. cont. coumadin, MONITOR INR 3. plan to D/C to rehab 4. monitor effusions, no need fro thoracentesis at this time 5. encourage medical compliance and ambulation 6. cont. supplemental oxygen/bronchodilators 7. Cont. supportive care JOSE HOWARD MD Jun 03, 2019 13:08
[2019-06-03] MEDS ORDERED: METO25TA4 PO ×2 (14:14→15:12)
[2019-06-03] MEDS ORDERED: DIGO125T PO (14:14)
--- NOTE | 2019-06-03 14:49 | PDOC ---
ROBIN TUCKER [employer] CONTAINER FINISHING HAND 06/03/19 1449: CARDIO Progress Notes Date and Time Date of Service 06/03/2019 Time of Evaluation 1415 Subjective Subjective: No Chest Pain, No shortness of breath, No Palpitations Vitals Vitals Vital Signs Date Time Temp Pulse Resp B/P (MAP) Pulse Ox O2 Delivery O2 Flow Rate FiO2 06/03/19 12:03 75 141/81 06/03/19 11:12 98.2 18 96 Nasal Cannula 4.0 98.2 Weight Weight [ ] Input and Output Intake and Output Intake and Output 06/03/19 07:00 Intake Total 1530 ml Balance 1530 ml Intake Oral 1080 ml IV Total 450 ml # Voids 3 Laboratory Labs Laboratory Tests Test 06/03/19 05:00 Prothrombin Time 25.6 SEC (11.7-14.0) Prothromb Time International Ratio 2.4 (0.8-1.1) Physical Exam HEENT: Neck Supple W Full Motion Chest: Symmetric LUNGS: Clear to Auscultation Heart: irregularly irregular (AFIB rate controlled) Abdomen: Soft N/T, Other (truncal obesity) Extremities: No Calf Tenderness, Other (trace Le edema) Neurology: alert, oriented, follow commands Assessment Assessment 1. NSTEMI: Peaked at 0.5, demand mediated from RVR 2. Chronic AFIB: converted to SR with CVN but converted back to AFIB. rate controlled 3. COPD: O2 dependent. stable 4. CAD; S/P LHC with patent stents to RCA and LAD 5. HTN: controlled 6. HLP 7. Macrocytosis 8. Possible ETOH abuse 9. DACIA: CPAP intolerant 10. Acute on chronic diastolic CHF: compensated Recommendations 1. Coumadin for stroke prevention 2. Continue with digoxin and metoprolol for rate control 3. Discussed stopping or decreasing ETOH consumption. 4. June 16 appt with EP. Follow up in office TANIKA SUMNER MD 06/03/19 1406: CARDIO Progress Notes Plan Plan Patient seen and examined. Agree with above nurse practitioner note. No acute events overnight. His heart rate remains well controlled after being on metoprolol therapy and digoxin therapy. Continue an to regulation. Unfortunate, he had a poor response to cardioversion therapy. We will await EP evaluation prior to initiation of antiarrhythmic drug therapy depending on plans for atrial fibrillation ablation. ROBIN TUCKER APRN Jun 03, 2019 14:49 TANIKA SUMNER MD Jun 03, 2019 16:57
[2019-06-03 15:00] VITALS: BP 142/79
[2019-06-03] MEDS ORDERED: METO-313 PO (15:04)
--- NOTE | 2019-06-03 18:20 | NUR ---
Discharge Note: INGE [facility]AR[facility] 2 Discharge instructions and discharge home medications (metoprolol script) reviewed with Patient and a copy given. All questions have been answered and understanding verbalized. The following instructions and handouts were given: Afib Discontinued lines and drains: 1 x PIV, tip intact Patient discharged to home with spouse and personal home O2 tank.
[2019-06-03] MEDS ORDERED: METOPROLOL TART IMMED RELEASE 50 MG TABLET. PO SCH (21:00)
--- NOTE | 2019-06-03 21:06 | DS ---
DATE OF DISCHARGE: 06/03/2019 PRIMARY DIAGNOSIS: Atrial fibrillation with rapid ventricular response. ADDITIONAL DIAGNOSES: 1. Non-ST elevated myocardial infarction. 2. Severe chronic obstructive pulmonary disease. 3. Pulmonary hypertension. 4. Obstructive sleep apnea. 5. Noncritical coronary artery disease. 6. Cardioversion with return to atrial fibrillation during stay. 7. Under anticoagulation on admission due to noncompliance with medications. CHIEF COMPLAINT AND HISTORY OF PRESENT ILLNESS: This 63-year-old white male admitted through the Emergency Room with shortness of breath, lightheadedness, found to be in AFib with rapid ventricular response and elevated troponin, was admitted on a Cardizem drip with Cardiology and Pulmonary consultations. SUMMARY OF STAY: The patient's rate was controlled with the AFib. His initial INR was 1.1. He was anticoagulated with Coumadin through the stay and did admit that he had not been taking his warfarin. Prior to the admission, he also had not been taking metoprolol and digoxin. Digoxin and metoprolol were restarted during the stay. He did have a heart catheterization on the showing 3-vessel coronary artery disease but noncritical with prior stenting, two stents being open, was found to have acute on chronic diastolic and systolic heart failure with a left ventricular end-diastolic pressure of 22 mmHg. He did undergo transesophageal echocardiogram with cardioversion during the stay and was out of AFib for very short period of time. He was felt best served with discharge on current medical management, and he has an appointment in the next couple of weeks to see electrophysiological Cardiology for consideration of ablation of his atrial fibrillation. On questioning, the short time that he was out of AFib, he could tell a difference in the way he felt but says he was mostly out of it with anesthesia for the same and I really cannot remember for sure. DISPOSITION: The patient is discharged to home. DIET: Regular. ACTIVITY: As tolerated. FOLLOWUP: Office in 2 weeks. DISCHARGE MEDICATIONS: Listed on the med rec and have been addressed. CAMDEN FISHER MD DR: [email or web address] JOB#: [id number] / [id number]
== END 2019-06-03 18:00 | disposition home or self-care (01) | DRG 280 ==
LOC: ER 16:51 → ED HOLD 17:08 → 2 NORTH 20:47
PROVIDERS: ADMIT Family Medicine; ATTEND Family Medicine
PROC: 4A023N7 Measurement of Cardiac Sampling and Pressure, Left Heart, Percutaneous Approach (ICD-10-PCS; 2019-05-29)
PROC: B2111ZZ Fluoroscopy of Multiple Coronary Arteries using Low Osmolar Contrast (ICD-10-PCS; 2019-05-29)
PROC: 4A033BC Measurement of Arterial Pressure, Coronary, Percutaneous Approach (ICD-10-PCS; 2019-05-29)
PROC: B24BZZ4 Ultrasonography of Heart with Aorta, Transesophageal (ICD-10-PCS; principal; 2019-06-02 13:30)
PROC: 5A2204Z Restoration of Cardiac Rhythm, Single (ICD-10-PCS; 2019-06-02 13:30)
DX: I21.4 Non-ST elevation (NSTEMI) myocardial infarction (principal); J96.21 Acute and chronic respiratory failure with hypoxia; I50.33 Acute on chronic diastolic (congestive) heart failure; I48.20 Chronic atrial fibrillation, unspecified; E87.1 Hypo-osmolality and hyponatremia; J44.1 Chronic obstructive pulmonary disease with (acute) exacerbation; D64.9 Anemia, unspecified; D75.89 Other specified diseases of blood and blood-forming organs; E66.01 Morbid (severe) obesity due to excess calories; E78.00 Pure hypercholesterolemia, unspecified; E78.5 Hyperlipidemia, unspecified; E83.42 Hypomagnesemia; G47.33 Obstructive sleep apnea (adult) (pediatric); E87.6 Hypokalemia; I11.0 Hypertensive heart disease with heart failure; I25.10 Atherosclerotic heart disease of native coronary artery without angina pectoris; I27.29 Other secondary pulmonary hypertension; F32.9 Major depressive disorder, single episode, unspecified; K21.9 Gastro-esophageal reflux disease without esophagitis; M19.90 Unspecified osteoarthritis, unspecified site; F17.201 Nicotine dependence, unspecified, in remission; I25.2 Old myocardial infarction; Z79.01 Long term (current) use of anticoagulants; Z82.49 Family history of ischemic heart disease and other diseases of the circulatory system; Z82.5 Family history of asthma and other chronic lower respiratory diseases; Z87.19 Personal history of other diseases of the digestive system; Z87.442 Personal history of urinary calculi; Z90.49 Acquired absence of other specified parts of digestive tract; Z91.14 Patient's other noncompliance with medication regimen; Z95.1 Presence of aortocoronary bypass graft; Z95.5 Presence of coronary angioplasty implant and graft; Z99.81 Dependence on supplemental oxygen; Z68.35 Body mass index [BMI] 35.0-35.9, adult
CPT/HCPCS: 36415; 71045; 80048; 80053; 80061; 80162; 82550; 82607; 83690; 83735; 83880; 84443; 84484; 85025; 85610; 90471; 90686; 92960; 93005; 93312; 93320; 93325; 93458; 93571; 94760; 96365; 96366; 96368; 96375; 99152; 99153; C1769; C1887; C1892; J1644; J2250; J2704; J3010; J3475; J3490; J7120; Q9967; 99291-25; G0378